=== PATIENT | male | born 1970 | race African-American/Black ===

== ENCOUNTER 2017-03-02 14:21 | Inpatient (IN) | payer OTHER ==
--- NOTE | 2017-03-02 15:02 | RAD ---
PORTABLE AP CHEST RADIOGRAPH: Date: 03-02-17 History: Tension pneumothorax post Mediport placement. Comparison: 02-21-16 FINDINGS: There has been interval placement of a CT injectable right internal jugular vein Mediport catheter wi th tip overlying the distal SVC. There is a moderate sized right apical pneumothorax with accentuatio n of the bronchovascular markings at the right lung base. There are pulmonary nodules seen bilaterall y, one overlying the right hilar region and second overlying the left midlung zone. There is a large opacity in the collapsed portion of the right midlung zone with probable pulmonary nodule at the lowe r right lung base. Cardiac silhouette and pulmonary vasculature are within normal limits. There is no other interval michele nge. IMPRESSION: 1. Moderately large right sided pneumothorax. 2. Bilateral pulmonary nodules suggesting metastatic disease. 3. Above findings discussed with ER physician at 03-02-17 at 1441 hours. POS: MAYA
[2017-03-02] MEDS ORDERED: Midazolam HCl 2 mg/2 ml Vial ONE (15:20)
[2017-03-02] MEDS ORDERED: Lidocaine 1% (PF) 30 ML VIAL ONE (15:20)
[2017-03-02 15:28] LABS: ALT (SGPT) 14 U/L (8-55); AST (SGOT) 19 U/L (5-34); Albumin 3.8 g/dL (3.5-5.0); Alkaline Phosphatase 69 U/L (40-150); Anion Gap 15 mmol/L (10-20); BUN (Urea Nitrogen) 7 mg/dL (8.9-20.6); Bilirubin, Total 0.2 mg/dL (0.2-1.2); Calc. Creatinine Clearance 0 mL/min (70-130); Carbon Dioxide 19 mmol/L (22-29); Chloride 99 mmol/L (98-107); Estimated GFR-MDRD Greater than 90; Glucose 91 mg/dL (70-105); Potassium 3.8 mmol/L (3.5-5.1); Protein, Total 6.8 g/dL (6.0-8.3); Sodium 129 mmol/L (136-145)
[2017-03-02 15:33] LABS: Band 30 % (5-11); Blast 1 % (0-0); Hemoglobin 7.4 g/dL (14.0-18.0); Hypochromia SLIGHT = 6-15 cells (100X) (0-5/hpf); Lymphocytes 22 % (21-51); MDiff Complete? YES; Mean Corpuscular HGB CONC 32.1 g/dL (32.0-36.0); Mean Corpuscular Hemoglobin 24.9 pg (27.0-31.0); Mean Corpuscular Volume 77.6 fl (80.0-94.0); Mean Platelet Volume 8.1 fL (7.4-10.4); Metamyelocyte 8 % (0-0); Microcytosis SLIGHT = 6-15 cells (100X) (0-5/hpf); Monocytes 16 % (0-10); Neutrophil 20 % (42-75); PLT Morphology Comment Appears Adequate; Platelet Count 149 thou/uL (130-400); RBC Distribution Width 12.1 % (11.5-14.5); Reactive Lymphocytes 1 % (0-10); Red Blood Cell (RBC) Count 2.97 mill/uL (4.70-6.10); Reflex for Review?? YES; Toxic Granulation MODERATE; Vacuoles SLIGHT
--- NOTE | 2017-03-02 16:25 | CON ---
DATE OF CONSULTATION: 03/02/2017 REQUESTING PHYSICIAN: Emergency room provider. CHIEF COMPLAINT: Short of breath and right-sided chest pain. HISTORY OF PRESENT ILLNESS: The patient is a 46-year-old man who has undergone left lower extremity amputation for sarcoma and about a week ago had a Port-A-Cath implanted via the right subclavian vein at another institution. He developed shortness of breath and pleuritic chest and back pain and on p resentation, an x-ray demonstrated large right-sided pneumothorax. The patient denies any antecedent cough or trauma other than his Port-A-Cath about a week ago. PAST MEDICAL HISTORY: Only significant for his sarcoma. MEDICATIONS: The patient does not know the names of his medications. ALLERGIES: He denies any medical allergies. REVIEW OF SYSTEMS: Positive for headache. PHYSICAL EXAMINATION: GENERAL: He is mildly agitated. VITAL SIGNS: Heart rate is in 70s, systolic blood pressure is in the 120s to 130s, nasal cannula oxy gen saturations were in the low 90s. NECK: He has no JVD, no tracheal shift. LUNGS: Absent breath sounds on the right side and some hyperresonance. CARDIOVASCULAR: He has a regular rate and rhythm. ABDOMEN: Soft and nontender. EXTREMITIES: Status post left lower extremity amputation. His chest x-ray shows a large right-sided pneumothorax. LABORATORY DATA: His hemoglobin 7.4, white count 4.0, platelet count 149,000. Sodium is 129, potass ium 3.8, BUN 15, creatinine 0.84. IMPRESSION AND PLAN: Large right-sided pneumothorax. We will place a right-sided chest tube.
--- NOTE | 2017-03-02 16:34 | RAD ---
PORTABLE AP CHEST: Date: 03/02/17 HISTORY: Tension pneumothorax. Placement of right-sided thoracostomy tube. COMPARISON: 03/02/17 at 1432 hours. FINDINGS: There has been interval placement of a right-sided thoracostomy tube with resolution of the right-rosibel ed pneumothorax. The right internal jugular vein MediPort catheter remains in place and unchanged in position. There are nodular densities again overlying the right hilar region and at the left lung bas e. Pulmonary nodules over the mid lung zones bilaterally likely related to metastatic disease. Atelec tasis is present at the medial left lung base. Linear densities are seen within the right upper lung zone, probably related to atelectasis. IMPRESSION: 1. Interval placement of right-sided thoracostomy tube with resolution of pneumothorax. There is ate lectasis present at the lateral aspect of the right upper lung zone. 2. Bilateral pulmonary nodules suggesting metastatic disease. POS: [facility]
--- NOTE | 2017-03-02 16:48 | OP ---
DATE OF PROCEDURE: 03/02/2017 PROCEDURES PERFORMED: A 28-Singaporean right tube thoracostomy. PREOPERATIVE DIAGNOSIS: Right pneumothorax. POSTOPERATIVE DIAGNOSIS: Right pneumothorax SURGEON: Berto Paris M.D. ANESTHESIA: 1% lidocaine local anesthesia with intravenous sedation consisting of a total of 2 mg of Versed and 10 mg of morphine. INDICATIONS: The patient is a 46-year-old man who had a right-sided Port-A-Cath placed about a week ago at another institution when he presented today with shortness of breath and pleuritic pain. He w as found to have a right-sided pneumothorax. A chest tube is now being placed to expand his lung. FINDINGS: Small air neal heard upon entering the chest, good reexpansion of the lung following chest tube insertion. NARRATIVE REPORT: After informed consent was obtained, the patient was sedated incrementally with a total of 2 mg of Versed and 10 mg of morphine. His right chest was prepped and draped in sterile fas hion. Then, 1% lidocaine was used to infiltrate the skin and subcutaneous tissues little lateral to the nipple line at the level of the xiphoid. The skin was sharply incised at that point and subcutan eous tract was developed superiorly and posteriorly. Additional lidocaine was infiltrated into the s ubcutaneous tissue and over superior rib margin aspirating on the syringes. The needle was advanced until the air was aspirated from the chest. A bolus of lidocaine was infiltrated just extrapleurally . Blunt dissection was used to enter the pleural space and a 28-Singaporean chest tube was then inserted. It was secured to the skin with suture and connected to close suction drainage. Post-procedure [facility] x-ray showed good positioning of the tube in good reexpansion of the lung.
[2017-03-02 17:24] VITALS: BMI 23.0
[2017-03-02] MEDS ORDERED: HYDROcodone/Acetaminophen 5/325 mg Tablet PO PRN (17:30)
[2017-03-02] MEDS: HYDROcodone/Acetaminophen 5/325 mg Tablet PO PRN (20:14)
[2017-03-02] MEDS ORDERED: metFORMIN 500 MG TAB PO SCH (20:45)
[2017-03-02] MEDS ORDERED: Melatonin 3 MG TAB PO PRN (22:23)
[2017-03-02] MEDS: Perphenazine 2 MG TAB PO SCH (22:48)
[2017-03-02 23:06] LABS: Reticulocyte Count 0.7 % (0.5-1.5)
[2017-03-02 23:37] LABS: Iron 9 ug/dL (65-175); Iron Binding Capacity, Total 188 mcg/dL (261-462)
--- NOTE | 2017-03-03 00:27 | CON-2 ---
CODE STATUS: FULL. PRIMARY CARE PHYSICIAN: Vee Aguillon M.D. ATTENDING: Stone Lau M.D. RESIDENT: Flaco Alicia M.D. HISTORIAN: Patient. SPECIALIST: Berto Paris MD, Cardiovascular Surgery. CHIEF COMPLAINT: Shortness of breath, cough. CONSULTATION REQUEST: Medical management. HISTORY OF PRESENT ILLNESS: A 46-year-old -Welsh male with past medical history of metastatic sarcoma and a recent MediPort placement who presented to the [facility] clinic today for shortness of breath and cough. Patient felt shortness of breath that started 4-5 days ago, but was not completely sure. He endorsed cough and subsequent chest pain related to that, as well as runny nose and congestion felt to have started at the same time of the MediPort placement last week. X-ray performed which showed a right large apical pneumothorax, so the patient was sent to the Emergency Department and subsequently admitted to Dr. Paris of Cardiovascular Surgery. Right side chest tube was placed with resolution of pneumothorax and improvement in SOB. [facility] [place] [place] residents have been consulted for medical management. Patient is an overall poor historian due to psychiatric issues. 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 Initially treated at [facility], but currently being managed by Dr. Roberson, an oncologist at [facility] in [place]. Records available to me through clinic EMR documentation show a recent lung biopsy in 01/2017 that confirmed metastatic disease. Patient's prognosis is poor unless systemic treatment recurs. Chemotherapy options include AIM versus Adriamycin/olaratumab. The patient's psychosocial and logistical issues make him a poor candidate as unable to travel consistently from [place] to [place]. He also appears to lack an overall understanding of his disease process. The patient's [facility] social media developer, Jose G Head, is currently attempting to make arrangements for him to receive chemotherapy, but no recent updates are available. He received a MediPort last week and saw his oncologist at that time with no records available. Patient does not remember what his oncologist said about the current plan for treatment at that visit. EMERGENCY ROOM COURSE: Received morphine 10 mg, Versed 2 mg, DuoNeb treatment and right-sided chest tube. PAST MEDICAL HISTORY: 1. 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 2. Hypertension. 3. Schizoaffective disorder. 4. Mild mental retardation. 5. Diabetes mellitus 2. 6. Insomnia. PAST MEDICAL HISTORY: Left leg amputation with hip disarticulation in 12/2016. ALLERGIES: Per chart review, GABAPENTIN has been suggested as an allergy. Patient states no current allergies. MEDICATIONS: 1. Lexapro 20 mg q.a.m. 2. Perphenazine 16 mg q.a.m., 32 mg at bedtime. 3. Seroquel 300 mg 2 tabs at bedtime. 4. Simvastatin 20 mg at bedtime. 5. Hydrochlorothiazide 25 mg daily. 6. Ferrous gluconate 324 mg every day. 7. Metformin 500 mg b.i.d. 8. Lisinopril 10 mg every day. 9. Aspirin 81 mg. 10. Clonazepam 2 mg b.i.d. 11. Melatonin 5 mg at bedtime. 12. Vitamin D 50,000 units every week. FAMILY HISTORY: Denies any medical issues in parents and siblings. SOCIAL HISTORY: Patient has smoked 3-4 cigarettes per day since 2012. He denies any alcohol use. Endorses distant history of drug use in his teenage years. No history of IV drug use. Patient has no current occupation. He is not . He has 1 daughter. He currently lives with his sister. Denies any ill contacts. REVIEW OF SYSTEMS: A 12-step review of systems including general, eyes, ENT, respiratory, CV, GI, , skin, musculoskeletal, neuro, and psychiatric are negative except for pertinent positives in HPI. PHYSICAL EXAMINATION: VITAL SIGNS: BP 133/79, pulse 100, respiratory rate 18, T-max 99.5, pulse ox 95 % on room air. Current weight 77 kilograms. GENERAL: Alert, oriented x4. NAD, thin and appropriately interactive. EYES: PERRLA, EOMI. Conjunctivae WNL. ENT: Nasal mucosa WNL. Oropharynx WNL. NECK: Supple. No lymphadenopathy. CARDIOVASCULAR: Regular rate and rhythm. No murmur, no gallops. RESPIRATORY: Normal effort, no retractions. Mild left-sided expiratory wheezing. Good breath sounds bilaterally. Right-sided chest tube in place. SKIN: Warm and dry, no cyanosis, no lesions. Left leg amputation at hip. ABDOMEN: Soft, nontender to palpation. Bowel sounds x4. No mass or distention. EXTREMITIES: No cyanosis, no edema. MUSCULOSKELETAL: Structure WNL. Tone WNL. Full range of motion. NEUROLOGIC: No focal deficits. Sensation WNL. Cranial nerves II through XII intact. PSYCHIATRIC: Appropriate, although appears to lack insight. LABORATORY DATA: CBC: WBC 4.0, hemoglobin 7.4, hematocrit 23.1, platelets 149 , MCV 77.6, bands 30%, neutrophils 20%, blasts 1%, metamyelocyte 8%. CMP: Sodium 129, potassium 3.8, chloride 99, CO2 19, BUN 7, creatinine 0.84, glucose 91, calcium 9.0, total protein 6.8, albumin 3.8, total bilirubin 0.2, AST 19, ALT 14, alkaline phosphatase 69. IMAGING: Chest x-ray showed right apical pneumothorax and bilateral pulmonary nodules in the mid lung zone suggesting metastatic disease. Repeat film showed interval insertion of right-sided chest tube with complete expansion of the right lung. ASSESSMENT AND PLAN: A 46-year-old -Welsh male with history of metastatic sarcoma and MediPort placement, presented with: 1. Right apical pneumothorax. Likely 2/2 last week's Mediport placement. Chest tube inserted by primary team with resolution of pneumothorax. Shortness of breath also improved. Further management by Dr. Paris. [facility] was consulted for management of other medical problems. 2. Bicytopenia. Patient has stage 4 sarcoma and not currently receiving any treatment. It is unclear if these findings are related to bone marrow involvement. We will check iron studies, reticulocyte count, peripheral smear and repeat CBC in a.m. Hemoglobin is close to transfusion threshold. Mild neutropenia with ANC of 2000. Findings may also be related to perphenazine. Last anemia with Hgb 4.9 came following bleeding tumor that resulted in L leg amputation. Records reviewed from [facility] oncologist that had CBC from Dec showing mild anemia and no neutropenia. Takes iron daily. 3. Stage IV pleomorphic spindle cell sarcoma. Patient has known metastatic disease to the lungs as evidenced on biopsy in 01/2017. A MediPort was placed last week via an oncologist in [place]. See H&P for more information. Currently , awaiting the start of treatment. We will attempt to fax information from this hospitalization to the patient's oncologist for further review due to new findings of severe anemia and leukopenia. There has also been mention of possible palliative radiation, although this does not seem to have been discussed in detail with the patient. 4. Hyponatremia. This is chronic per chart review. It is currently improved from his usual baseline. We will continue to monitor. 5. Schizoaffective disorder. [facility] records reviewed from clinic EMR. Home meds have been restarted appropriately. Will not hold perphenazine at this time although monitor for worsening neutropenia. D/c if ANC < 1000. Will need to get info to [facility] pertaining to newly found bicytopenia in case dosage adjustments warranted. 6. Hypertension. We will continue home medications. Currently appears controlled. 7. Diabetes mellitus type 2. Continue home medications. We will check Accu- Cheks. 8. Prophylaxis. Sequential compression devices. DISPOSITION AND LENGTH OF HOSPITAL STAY: Admission with an anticipated 1-2 day stay expected. Symptomatic medications will be provided. History and physical exam as well as management were discussed with Dr. Lau. We appreciate the opportunity to assist in the care of this mutual patient. LINDA
[2017-03-03] MEDS: HYDROcodone/Acetaminophen 5/325 mg Tablet PO PRN ×3 (02:27→18:06)
[2017-03-03] MEDS: Ibuprofen 600 MG TAB PO PRN (03:50)
[2017-03-03 06:09] LABS: Band 52 % (5-11); Hemoglobin 7.3 g/dL (14.0-18.0); Lymphocytes 8 % (21-51); MDiff Complete? YES; Mean Corpuscular HGB CONC 32.8 g/dL (32.0-36.0); Mean Corpuscular Hemoglobin 25.5 pg (27.0-31.0); Mean Corpuscular Volume 77.9 fl (80.0-94.0); Mean Platelet Volume 8.1 fL (7.4-10.4); Metamyelocyte 5 % (0-0); Monocytes 18 % (0-10); Myelocyte 2 % (0-0); Neutrophil 15 % (42-75); Platelet Count 136 thou/uL (130-400); RBC Distribution Width 12.3 % (11.5-14.5); Red Blood Cell (RBC) Count 2.86 mill/uL (4.70-6.10); Toxic Granulation SLIGHT; White Blood Cell (WBC) Count 6.5 thou/uL (4.8-10.8)
--- NOTE | 2017-03-03 07:50 | RAD ---
AP CHEST: History: Shortness of breath. Date: 03-03-17 Comparison: 03-02-17 FINDINGS: AP chest demonstrates a right jugular triple lumen catheter in place, distal tip overlying the SVC ri ght atrial junction. A right sided chest tube is in place. Areas of atelectasis is present in the rig ht lung. There is a well circumscribed mass in the left upper lobe. Additional right lower lobe and right central nodules are more difficult to see but remain. No evidence of pleural effusions seen. IMPRESSION: 1. No evidence of right sided pneumothorax post chest tube placement. 2. Bilateral lung parenchymal opacities compatible with metastatic disease. POS: H
--- NOTE | 2017-03-03 08:01 | RAD ---
PORTABLE UPRIGHT FRONTAL CHEST RADIOGRAPH: Date: 03/03/17 Time: 0708 hours COMPARISON: 03/03/17 at 0231 hours. HISTORY: Shortness of breath, chest tube in place. FINDINGS: There is a right-sided Port-A-Cath, distal tip overlying the region of the right atrium. There is a c hest tube overlying the right lung base. There are patchy areas of increased density in the mid right lung zone and medial right lung base which may signify air space disease or volume loss. There is a round mass density in the mid left lung zone measuring 2.1 cm. Possible perihilar nodule i s noted on the right as well. IMPRESSION: 1. Right chest tube in place. No discrete right-sided pneumothorax. 2. Bilateral pulmonary nodules suggest possible underlying metastatic disease. CODE T. POS: [facility]
[2017-03-03] MEDS: Ferrous Gluconate 324 MG TAB PO SCH (08:59)
[2017-03-03] MEDS: metFORMIN 500 MG TAB PO SCH ×2 (08:59→18:05)
[2017-03-03] MEDS ORDERED: Perphenazine 2 MG TAB PO SCH ×2 (09:00→22:00)
[2017-03-03] MEDS: clonazePAM 1 MG TAB PO SCH ×2 (09:00→21:19)
[2017-03-03] MEDS: Escitalopram Oxalate 20 mg Tablet PO SCH (09:00)
[2017-03-03] MEDS: Hydrochlorothiazide 25 MG TAB PO SCH (09:00)
[2017-03-03] MEDS ORDERED: Nicotine 21 MG PATCH TD SCH (09:00)
[2017-03-03] MEDS: Aspirin 81 mg Enteric Coated Tablet PO SCH (09:00)
[2017-03-03] MEDS: Lisinopril 10 MG TAB PO SCH (09:00)
--- NOTE | 2017-03-03 09:31 | PDOC.FM ---
- Subjective Subjective: Patient did well overnight. No N/V, SOB. Cough has improved, chest pain still present when he does cough. - Objective MAR Reviewed: Yes Vital Signs & Weight: Vital Signs (12 hours) Temp Pulse Resp BP BP Pulse Ox 03/03/17 09:00 104/65 03/03/17 07:35 98.3 F 88 20 104/65 94 L 03/03/17 02:24 99.3 F 102 H 20 121/68 94 L 03/03/17 00:51 100.2 F H 105 H 18 100/61 94 L Weight Weight 77 kg I&O: 03/02/17 03/03/17 03/04/17 06:59 06:59 06:59 Intake Total 400 Output Total 600 Balance -200 Result Diagrams: 03/03/17 04:47 03/02/17 14:46 <Fritz High - Last Filed: 03/03/17 14:07> - Objective Vital Signs & Weight: Vital Signs (12 hours) Temp Pulse Resp BP BP Pulse Ox 03/04/17 09:11 98.9 F 99 24 H 97/57 L 93 L 03/04/17 08:49 97/57 L 03/04/17 08:00 98.9 F 99 24 H 93 L 03/04/17 05:23 98.7 F 107 H 16 94/52 L 91 L Weight Weight 77 kg I&O: 03/03/17 03/04/17 03/05/17 06:59 06:59 06:59 Intake Total 400 1700 240 Output Total 600 1650 60 Balance -200 50 180 Result Diagrams: 03/03/17 04:47 03/04/17 06:56 <Bibi Reinoso - Last Filed: 03/04/17 11:21> Phys Exam - Physical Examination Constitutional: NAD HEENT: PERRLA, moist MMs chest tube in place on right thorax Cardiovascular: RRR, no significant murmur Gastrointestinal: soft, non-tender Musculoskeletal: no edema left AKA Neurological: non-focal, normal sensation Psychiatric: normal affect, A&O x 3 <Fritz High - Last Filed: 03/03/17 14:07> Dx/Plan (1) Pneumothorax Code(s): J93.9 - PNEUMOTHORAX, UNSPECIFIED Status: Acute Plan: chest tube in place, managed by CV surg (2) Chest tube in place Code(s): Z97.8 - PRESENCE OF OTHER SPECIFIED DEVICES Status: Acute (3) Chronic hyponatremia Code(s): E87.1 - HYPO-OSMOLALITY AND HYPONATREMIA Status: Acute Plan: stable, continue to monitor (4) Spindle cell carcinoma Code(s): C80.1 - MALIGNANT (PRIMARY) NEOPLASM, UNSPECIFIED Status: Acute (5) HTN (hypertension) Code(s): I10 - ESSENTIAL (PRIMARY) HYPERTENSION Status: Acute Plan: continue home meds, monitor (6) DM2 (diabetes mellitus, type 2) Status: Acute Plan: continue home meds goal 140-180 (7) Schizoaffective disorder Code(s): F25.9 - SCHIZOAFFECTIVE DISORDER, UNSPECIFIED Status: Acute Plan: home meds have been reconciled - Plan Plan: stable at this time, will continue to follow <Fritz High - Last Filed: 03/03/17 14:07> Attending Addendum - Attending Addendum I personally evaluated the patient and discussed the management with Dr. High on 03/03/17. I agree with the History, Examination, Assessment and Plan documented above with any addition or exceptions noted below. The patient is doing well. Has chest tube in place. Will wean O2 as tolerated. <Bibi Reinoso - Last Filed: 03/04/17 11:21>
[2017-03-03] MEDS ORDERED: Atorvastatin Calcium 10 MG TAB PO SCH (21:00)
[2017-03-03] MEDS: Perphenazine 2 MG TAB PO SCH (23:26)
[2017-03-04] MEDS: HYDROcodone/Acetaminophen 5/325 mg Tablet PO PRN ×2 (04:31→09:02)
[2017-03-04 07:39] LABS: Anion Gap 13 mmol/L (10-20); BUN (Urea Nitrogen) 13 mg/dL (8.9-20.6); Calc. Creatinine Clearance 71 mL/min (70-130); Calcium 9.1 mg/dL (7.8-10.44); Carbon Dioxide 25 mmol/L (22-29); Chloride 96 mmol/L (98-107); Estimated GFR-MDRD 66; Glucose 106 mg/dL (70-105); Potassium 4.4 mmol/L (3.5-5.1); Sodium 130 mmol/L (136-145)
--- NOTE | 2017-03-04 08:15 | RAD ---
SINGLE VIEW OF THE CHEST: Comparison: None. History: Chest tube placement. FINDINGS: Single view of the chest shows a normal sized cardiomediastinal silhouette. There is a right sided ch est tube without evidence of pneumothorax. The Mediport is unchanged in position. Multiple bilateral pulmonary nodules are again seen. IMPRESSION: 1. Right sided chest tube without evidence of pneumothorax. 2. Bilateral pulmonary nodules. POS: OFF
--- NOTE | 2017-03-04 08:29 | PDOC.FM ---
- Subjective Subjective: Patient has no medical complaints overnight. Wants to know when he can go home because he has bills to pay and letters to write. No CP, SOB, N/V, pain with coughing. - Objective MAR Reviewed: Yes Vital Signs & Weight: Vital Signs (12 hours) Temp Pulse Resp BP Pulse Ox 03/04/17 05:23 98.7 F 107 H 16 94/52 L 91 L 03/03/17 20:57 100.1 F H 98 17 98/62 95 Weight Weight 77 kg I&O: 03/03/17 03/04/17 03/05/17 06:59 06:59 06:59 Intake Total 400 1700 240 Output Total 600 1650 60 Balance -200 50 180 Result Diagrams: 03/03/17 04:47 03/04/17 06:56 <Fritz High - Last Filed: 03/04/17 09:29> - Objective Vital Signs & Weight: Vital Signs (12 hours) Temp Pulse Resp BP BP Pulse Ox 03/04/17 09:11 98.9 F 99 24 H 97/57 L 93 L 03/04/17 08:49 97/57 L 03/04/17 08:00 98.9 F 99 24 H 93 L 03/04/17 05:23 98.7 F 107 H 16 94/52 L 91 L Weight Weight 77 kg I&O: 03/03/17 03/04/17 03/05/17 06:59 06:59 06:59 Intake Total 400 1700 240 Output Total 600 1650 60 Balance -200 50 180 Result Diagrams: 03/03/17 04:47 03/04/17 06:56 <Bibi Reinoso - Last Filed: 03/04/17 11:27> Phys Exam - Physical Examination Constitutional: NAD HEENT: PERRLA Neck: no JVD, full ROM Respiratory: no wheezing, clear to auscultation bilateral Cardiovascular: RRR, no significant murmur Gastrointestinal: soft, non-tender, positive bowel sounds Musculoskeletal: no edema, pulses present Neurological: non-focal, normal sensation Deviation from normal: mildly agitated <Fritz High - Last Filed: 03/04/17 09:29> Dx/Plan (1) Pneumothorax Code(s): J93.9 - PNEUMOTHORAX, UNSPECIFIED Status: Acute Plan: chest tube in place, improving managed by CV surg (2) Chest tube in place Code(s): Z97.8 - PRESENCE OF OTHER SPECIFIED DEVICES Status: Acute (3) Chronic hyponatremia Code(s): E87.1 - HYPO-OSMOLALITY AND HYPONATREMIA Status: Acute Plan: stable, continue to monitor (4) Spindle cell carcinoma Code(s): C80.1 - MALIGNANT (PRIMARY) NEOPLASM, UNSPECIFIED Status: Acute (5) HTN (hypertension) Code(s): I10 - ESSENTIAL (PRIMARY) HYPERTENSION Status: Acute Plan: will hold HCTZ this morning as BP has been low overnight (6) DM2 (diabetes mellitus, type 2) Status: Acute Plan: continue home meds goal 140-180 (7) Schizoaffective disorder Code(s): F25.9 - SCHIZOAFFECTIVE DISORDER, UNSPECIFIED Status: Acute Plan: home meds (8) BIRD (acute kidney injury) Code(s): N17.9 - ACUTE KIDNEY FAILURE, UNSPECIFIED Status: Acute Plan: bump in Cr overnight, will check FeUrea as he is on HCTZ and start fluids <Fritz High - Last Filed: 03/04/17 09:29> Attending Addendum - Attending Addendum I personally evaluated the patient and discussed the management with Dr. High. I agree with the History, Examination, Assessment and Plan documented above with any addition or exceptions noted below. Patient strongly wants to go home. Creatinine increased. Will give IV fluids and recheck creatinine. Chest tube has been pulled. CXR pending. <Bibi Reinoso - Last Filed: 03/04/17 11:27>
[2017-03-04] MEDS: metFORMIN 500 MG TAB PO SCH (08:48)
[2017-03-04] MEDS: Ferrous Gluconate 324 MG TAB PO SCH (08:48)
[2017-03-04] MEDS: Lisinopril 10 MG TAB PO SCH (08:49)
[2017-03-04] MEDS: clonazePAM 1 MG TAB PO SCH (08:50)
[2017-03-04] MEDS: Aspirin 81 mg Enteric Coated Tablet PO SCH (08:50)
[2017-03-04] MEDS: Escitalopram Oxalate 20 mg Tablet PO SCH (08:50)
[2017-03-04] MEDS: Hydrochlorothiazide 25 MG TAB PO SCH (08:57)
[2017-03-04] MEDS: Ibuprofen 600 MG TAB PO PRN (09:02)
[2017-03-04] MEDS ORDERED: Sodium Chloride 0.9% 1,000 ML IV SCH (11:15)
--- NOTE | 2017-03-04 13:15 | RAD ---
CHEST ONE VIEW: History: Chest tube removal. Comparison: 03-04-17 FINDINGS: Cardiomediastinal silhouette is magnified by projection. Pulmonary vasculature is upper limits of nor mal and accentuated by shallow inspiration. Right thoracostomy tube is no longer visible. No evidence of pneumothorax. Right internal jugular central venous catheter remains in place. Nodular densities projecting over each lung and patchy atelectasis at the right base are stable. IMPRESSION: Interval removal of the right chest tube. No evidence of recurrent pneumothorax. POS: [facility]
[2017-03-04 16:17] LABS: Anion Gap 13 mmol/L (10-20); BUN (Urea Nitrogen) 17 mg/dL (8.9-20.6); Calc. Creatinine Clearance 85 mL/min (70-130); Calcium 8.5 mg/dL (7.8-10.44); Carbon Dioxide 25 mmol/L (22-29); Chloride 97 mmol/L (98-107); Estimated GFR-MDRD 81; Glucose 96 mg/dL (70-105); Potassium 4.1 mmol/L (3.5-5.1); Sodium 131 mmol/L (136-145)
[2017-03-04 16:37] VITALS: BP 125/73; TEMP 98.2
[2017-03-04] MEDS ORDERED: Perphenazine 2 MG TAB PO SCH (21:00)
--- NOTE | 2017-03-05 14:57 | DIS ---
DATE OF ADMISSION: 03/02/2017 DATE OF DISCHARGE: 03/04/2017 PRINCIPAL DIAGNOSIS: Right pneumothorax. PROCEDURE PERFORMED: 28-Hebrew right tube thoracostomy, 03/02/2017. HISTORY OF PRESENT ILLNESS AND HOSPITAL COURSE: The patient is a 46-year-old man with metastatic edinson coma, who had had a Port-A-Cath placed via the right subclavian approach about a week earlier at an [facility] institution. He presented with shortness of breath and pleuritic pain and was found to have a large right-sided pneumothorax. His lungs were expanded well with a conventional chest tube and the following morning, his chest tube was placed to waterseal as there was no apparent ongoing air leak. The patient had some low-grade fevers that had no clear cut identifiable cause and resolved spontan eously. His chest tube was removed on the morning of the , and that afternoon, a repeat chest x- ray showed no obvious pneumothorax. As he had remained afebrile, he was discharged home when the Res idency Service was comfortable with his medical stability. Followup with me will be in around 2 week s with another chest x-ray.
== END 2017-03-04 17:40 | disposition home or self-care (01) | DRG 200 ==
LOC: ERS 14:21 → SURG B 15:50
PROVIDERS: ADMIT Thoracic Surgery (Cardiothoracic Vascular Surgery); ATTEND Thoracic Surgery (Cardiothoracic Vascular Surgery)
PROC: 0W9900Z Drainage of Right Pleural Cavity with Drainage Device, Open Approach (ICD-10-PCS; principal; 2017-03-02)
DX: J93.83 Other pneumothorax (principal); E87.1 Hypo-osmolality and hyponatremia; N17.9 Acute kidney failure, unspecified; C78.01 Secondary malignant neoplasm of right lung; F25.9 Schizoaffective disorder, unspecified; Z89.612 Acquired absence of left leg above knee; I10 Essential (primary) hypertension; F70 Mild intellectual disabilities; E11.9 Type 2 diabetes mellitus without complications; G47.00 Insomnia, unspecified; F17.210 Nicotine dependence, cigarettes, uncomplicated; C76.52 Malignant neoplasm of left lower limb
CPT/HCPCS: 36415; 71045; 80048; 80053; 82728; 83540; 83550; 85025; 85046; 85060; 94640; 96374; 96375; 99406; J2001; J2250; J7620; Q0175

== ENCOUNTER 2017-03-22 10:48 | Emergency (ER) | payer OTHER ==
[2017-03-22] MEDS ORDERED: Dexamethasone 4 mg/ml Vial ONE (11:39)
[2017-03-22] MEDS ORDERED: diphenhydrAMINE 25 MG CAP ONE (11:39)
[2017-03-22] MEDS ORDERED: Famotidine 20 MG TAB ONE (11:39)
== END 2017-03-22 11:48 | disposition home or self-care (01) ==
LOC: ERS 10:48
DX: T78.3XXA Angioneurotic edema, initial encounter (principal); I10 Essential (primary) hypertension; E11.9 Type 2 diabetes mellitus without complications; F31.9 Bipolar disorder, unspecified; F17.210 Nicotine dependence, cigarettes, uncomplicated; F20.9 Schizophrenia, unspecified; Z79.84 Long term (current) use of oral hypoglycemic drugs; Z79.899 Other long term (current) drug therapy
CPT/HCPCS: 99283; J1100

== ENCOUNTER 2017-04-01 17:24 | Emergency (ER) | payer OTHER ==
[2017-04-01] MEDS ORDERED: Magnesium Citrate 300 ML BOT ONE (19:39)
== END 2017-04-01 19:45 | disposition home or self-care (01) ==
LOC: ERS 17:24
DX: K59.00 Constipation, unspecified (principal); I10 Essential (primary) hypertension; E11.9 Type 2 diabetes mellitus without complications; F31.9 Bipolar disorder, unspecified; F20.9 Schizophrenia, unspecified; F17.210 Nicotine dependence, cigarettes, uncomplicated
CPT/HCPCS: 99283

== ENCOUNTER 2017-04-06 23:29 | Emergency (ER) | payer OTHER ==
[2017-04-07 01:36] LABS: Band 46 % (5-11); Eosinophils 1 % (0-10); Hemoglobin 6.7 g/dL (14.0-18.0); Lymphocytes 5 % (21-51); MDiff Complete? YES; Mean Corpuscular HGB CONC 31.9 g/dL (32.0-36.0); Mean Corpuscular Hemoglobin 25.5 pg (27.0-31.0); Mean Corpuscular Volume 79.9 fl (80.0-94.0); Mean Platelet Volume 8.8 fL (7.4-10.4); Metamyelocyte 5 % (0-0); Monocytes 2 % (0-10); Myelocyte 3 % (0-0); Neutrophil 38 % (42-75); PLT Morphology Comment Appears Adequate; Platelet Count 209 thou/uL (130-400); Red Blood Cell (RBC) Count 2.61 mill/uL (4.70-6.10); White Blood Cell (WBC) Count 31.5 thou/uL (4.8-10.8)
[2017-04-07 01:37] LABS: ALT (SGPT) 9 U/L (8-55); AST (SGOT) 15 U/L (5-34); Albumin 3.4 g/dL (3.5-5.0); Alkaline Phosphatase 120 U/L (40-150); Anion Gap 10 mmol/L (10-20); BUN (Urea Nitrogen) 8 mg/dL (8.9-20.6); Bilirubin, Total Less than 0.2 mg/dL (0.2-1.2); Calc. Creatinine Clearance 0 mL/min (70-130); Calcium 8.7 mg/dL (7.8-10.44); Carbon Dioxide 28 mmol/L (22-29); Chloride 100 mmol/L (98-107); Estimated GFR-MDRD Greater than 90; Globulin 2.9 g/dL (2.4-3.5); Glucose 102 mg/dL (70-105); Protein, Total 6.3 g/dL (6.0-8.3); Sodium 135 mmol/L (136-145)
[2017-04-07 01:39] LABS: Acetaminophen Less than 6.0 mcg/mL (10.0-30.0); Alcohol Less than 10 mg/dL (Less than 10); Salicylate Less than 8.0 mg/dL (15.0-30.0)
[2017-04-07 01:42] LABS: CKMB 2.9 ng/mL (0-6.6); Troponin I Less than 0.010 ng/mL (< 0.028)
[2017-04-07 02:13] LABS: Amphetamine Not Detected (NotDetected); Benzodiazepine Screen Not Detected (NotDetected); Cocaine Metabolite Screen Not Detected (NotDetected); Medtox Reader # READER 4; Methamphetamine Not Detected (NotDetected); Opiate Screen Not Detected (NotDetected); Phencyclidine (PCP) Not Detected (NotDetected); THC/Cannabinoid Screen Not Detected (NotDetected)
[2017-04-07 02:14] LABS: Barbiturates Screen Not Detected (NotDetected); Medtox Control Line Valid? VALID (VALID); Methadone Not Detected (NotDetected); Oxycodone Screen Not Detected (NotDetected); Tricyclic Screen Detected (NotDetected)
[2017-04-07] MEDS ORDERED: Potassium Chloride 20 MEQ TAB ONE (02:52)
--- NOTE | 2017-04-07 07:40 | RAD ---
AP VIEW CHEST: HISTORY: Chest pain. FINDINGS: AP view chest was obtained on 04/07/17. Comparison is made to previous exam from 03/04/17. AP view chest demonstrates a right subclavian central MediPort catheter in place. EKG leads seen ove r the chest. Multiple well-circumscribed soft tissue density seen throughout the lungs compatible wi th extensive metastatic disease. Radiograph is not significantly changed since the previous comparis on radiograph from 03/04/17. No evidence of effusions or pneumonia seen. IMPRESSION: 1. Multiple pulmonary parenchymal lesions. 2. Cardiomegaly. POS: [facility]
--- NOTE | 2017-04-07 08:11 | CT ---
PRELIMINARY REPORT/[facility]/EMERGENCY AFTER HOURS PROCEDURE: EXAM: CT Angiography Chest With Intravenous Contrast EXAM DATE/TIME: Exam ordered 04/07/2017 2:36 AM CLINICAL HISTORY: 46 years old, male; Pain; Chest pain; Patient HX: Er 4; 46 yo m presents to ed C/O substernal chest p ain and palpitations onset x30 minutes cryptanalyst while pt was lying in bed. Pt states that he took x2 seroq uel tonight before lying down then started experiencing pain and fast heart beat. TECHNIQUE: Axial computed tomographic angiography images of the chest with intravenous contrast using pulmonary embolism protocol. MIP reconstructed images were created and reviewed. Coronal reformatted images were created and reviewed. COMPARISON: No relevant prior studies available. FINDINGS: Pulmonary arteries: Suboptimal contrast bolus for evaluation of the pulmonary arteries. Allowing for this, there is no evidence of PE. Aorta: Thoracic aorta is normal. No thoracic aortic aneurysm. Lungs: Multiple bilateral pulmonary nodules measuring up to 2 cm in size, suspicious in appearance fo r metastases. No pneumonia or pulmonary edema Pleural space: Unremarkable. No significant effusion. No pneumothorax. Heart: Unremarkable. No cardiomegaly. No significant pericardial effusion. No evidence of RV dysfunct ion. Bones/joints: No acute fracture. No dislocation. Soft tissues: Gynecomastia. Lymph nodes: Unremarkable. No enlarged lymph nodes. IMPRESSION: Multiple bilateral pulmonary nodules measuring up to 2 cm in size, suspicious in appearance for metas tases. Atypical pulmonary infection can sometimes manifests as marked diffuse nodules but is less lik raghavendra, especially if the patient is immunocompetent. Thank you for allowing us to participate in the care of your patient. Dictated and Authenticated by: Philip Sosa MD 04/07/2017 3:19 AM Central Time ([place] & [place]) FINAL REPORT Preliminary exam was performed by [facility]. CTA CHEST: Contrast-enhanced CTA of the chest was performed. Two-D and 3D reconstruction images performed on an independent 3D work station. CTA chest images demonstrate multiple lung parenchymal nodules. No definite evidence of filling defe ct is seen in the pulmonary arteries to suggest pulmonary emboli. The contrast bolus is predominantl y in the aorta rather than in the pulmonary arteries significantly decreasing the sensitivity for det ection of pulmonary arterial pathology. If there is concern for pulmonary emboli, repeat CTA chest m ay be of use. I concur with the dictation from [facility]. POS: [facility]
[2017-04-07] MEDS ORDERED: ISOVUE-370 76%-LOCM 1 ML ONE (12:43)
--- NOTE | 2017-04-11 14:31 | EKG ---
Test Reason : CHEST PAIN Blood Pressure : / mmHG Vent. Rate : 111 BPM Atrial Rate : 111 BPM P-R Int : 178 ms QRS Dur : 112 ms QT Int : 354 ms P-R-T Axes : 048 068 042 degrees QTc Int : 481 ms Sinus tachycardia Otherwise normal ECG Confirmed by KENNEDY DUQUE, KEISHA ([id number]), tape editor LORI CARNES ([id number]) on 04/11/2017 2:30:42 PM Referred By: KATT BENAVIDES Confirmed By:KEISHA BENAVIDES MD
== END 2017-04-07 03:50 | disposition home or self-care (01) ==
LOC: ERS 23:29
DX: R07.89 Other chest pain (principal); I10 Essential (primary) hypertension; E11.9 Type 2 diabetes mellitus without complications; F31.9 Bipolar disorder, unspecified; F20.9 Schizophrenia, unspecified; F17.210 Nicotine dependence, cigarettes, uncomplicated; Z79.84 Long term (current) use of oral hypoglycemic drugs; Z71.6 Tobacco abuse counseling; Z79.899 Other long term (current) drug therapy
CPT/HCPCS: 36415; 71045; 71275; 80053; 80306; 80307; 82553; 84484; 85025; 85379; 93005; 96360; 99406

== ENCOUNTER 2017-04-08 16:36 | Emergency (ER) | payer OTHER ==
[2017-04-08 17:23] LABS: Hemoglobin 7.6 g/dL (14.0-18.0); Mean Corpuscular HGB CONC 32.3 g/dL (32.0-36.0); Mean Corpuscular Volume 77.4 fl (80.0-94.0); Mean Platelet Volume 7.4 fL (7.4-10.4); Platelet Count 304 thou/uL (130-400); RBC Distribution Width 15.1 % (11.5-14.5); Red Blood Cell (RBC) Count 3.03 mill/uL (4.70-6.10); White Blood Cell (WBC) Count 25.7 thou/uL (4.8-10.8)
[2017-04-08 17:49] LABS: ALT (SGPT) 9 U/L (8-55); AST (SGOT) 17 U/L (5-34); Alkaline Phosphatase 135 U/L (40-150); Anion Gap 14 mmol/L (10-20); BUN (Urea Nitrogen) 6 mg/dL (8.9-20.6); Bilirubin, Total 0.2 mg/dL (0.2-1.2); CK (CPK) 410 U/L (30-200); Calc. Creatinine Clearance 0 mL/min (70-130); Calcium 9.4 mg/dL (7.8-10.44); Carbon Dioxide 28 mmol/L (22-29); Chloride 94 mmol/L (98-107); Estimated GFR-MDRD Greater than 90; Globulin 3.2 g/dL (2.4-3.5); Glucose 116 mg/dL (70-105); Protein, Total 7.2 g/dL (6.0-8.3); Sodium 133 mmol/L (136-145)
[2017-04-08 17:54] LABS: CKMB 4.5 ng/mL (0-6.6); Troponin I Less than 0.010 ng/mL (< 0.028)
[2017-04-08 18:23] LABS: Anisocytosis SLIGHT = 6-15 cells (100X) (0-5/hpf); Band 7 % (5-11); Hypochromia SLIGHT = 6-15 cells (100X) (0-5/hpf); Lymphocytes 1 % (21-51); MDiff Complete? YES; Metamyelocyte 2 % (0-0); Monocytes 1 % (0-10); Myelocyte 2 % (0-0); Neutrophil 87 % (42-75); PLT Morphology Comment Appears Adequate; Polychromasia SLIGHT = 2-3 cells (100X) (0-2/hpf)
[2017-04-08] MEDS ORDERED: Ketorolac Tromethamine 30 MG/ML VIAL ONE (19:33)
[2017-04-08] MEDS ORDERED: Ondansetron ODT 4 MG TAB ONE (20:21)
--- NOTE | 2017-04-11 13:26 | EKG ---
Test Reason : Blood Pressure : / mmHG Vent. Rate : 102 BPM Atrial Rate : 102 BPM P-R Int : 176 ms QRS Dur : 108 ms QT Int : 378 ms P-R-T Axes : 032 033 039 degrees QTc Int : 492 ms Sinus tachycardia Possible Left atrial enlargement Borderline ECG No ST elevation/[place] Confirmed by RADHA DUQUE, RAYMOND ([id number]), magazine editor LORI CARNES ([id number]) on 04/11/2017 1:25:43 PM Referred By: Confirmed By:RAYMOND GARCIA MD
== END 2017-04-08 20:51 | disposition home or self-care (01) ==
LOC: ERS 16:36
DX: R07.89 Other chest pain (principal); I10 Essential (primary) hypertension; E78.00 Pure hypercholesterolemia, unspecified; F31.9 Bipolar disorder, unspecified; F20.9 Schizophrenia, unspecified; F17.210 Nicotine dependence, cigarettes, uncomplicated; E11.9 Type 2 diabetes mellitus without complications; Z79.899 Other long term (current) drug therapy; Z79.84 Long term (current) use of oral hypoglycemic drugs
CPT/HCPCS: 36415; 80053; 82550; 82553; 84484; 85025; 85060; 93005; 96361; 96374; 99406; J1885; Q0162

== ENCOUNTER 2017-04-10 14:32 | Emergency (ER) | payer OTHER ==
[2017-04-10] MEDS ORDERED: Dexamethasone 10 MG/ML VIAL ONE (15:54)
[2017-04-10] MEDS ORDERED: Ketorolac Tromethamine 30 MG/ML VIAL ONE (15:54)
[2017-04-10] MEDS ORDERED: Metoclopramide HCl 10 MG/2 ML VIAL ONE (15:54)
== END 2017-04-10 16:42 | disposition home or self-care (01) ==
LOC: ERS 14:32
DX: R51 Headache (principal); E11.9 Type 2 diabetes mellitus without complications; I10 Essential (primary) hypertension; F31.9 Bipolar disorder, unspecified; F17.210 Nicotine dependence, cigarettes, uncomplicated; Z79.84 Long term (current) use of oral hypoglycemic drugs; Z79.899 Other long term (current) drug therapy
CPT/HCPCS: 96365; 96375; J1100; J1885; J2765

== ENCOUNTER 2017-04-10 18:33 | Observation (INO) | payer OTHER ==
[2017-04-10 21:56] LABS: Mean Corpuscular HGB CONC 32.2 g/dL (32.0-36.0); Mean Corpuscular Hemoglobin 24.9 pg (27.0-31.0); Mean Corpuscular Volume 77.3 fl (80.0-94.0); Mean Platelet Volume 7.7 fL (7.4-10.4); Platelet Count 441 thou/uL (130-400); RBC Distribution Width 15.2 % (11.5-14.5); Red Blood Cell (RBC) Count 3.19 mill/uL (4.70-6.10); White Blood Cell (WBC) Count 14.6 thou/uL (4.8-10.8)
[2017-04-10 22:16] LABS: ALT (SGPT) 12 U/L (8-55); AST (SGOT) 15 U/L (5-34); Albumin 4.1 g/dL (3.5-5.0); Alkaline Phosphatase 121 U/L (40-150); Anion Gap 13 mmol/L (10-20); BUN (Urea Nitrogen) 11 mg/dL (8.9-20.6); Bilirubin, Total 0.2 mg/dL (0.2-1.2); Calc. Creatinine Clearance 0 mL/min (70-130); Calcium 9.6 mg/dL (7.8-10.44); Carbon Dioxide 27 mmol/L (22-29); Chloride 93 mmol/L (98-107); Estimated GFR-MDRD Greater than 90; Globulin 3.4 g/dL (2.4-3.5); Glucose 149 mg/dL (70-105); Potassium 3.5 mmol/L (3.5-5.1); Protein, Total 7.5 g/dL (6.0-8.3); Sodium 129 mmol/L (136-145)
[2017-04-10 22:27] LABS: Troponin I Less than 0.010 ng/mL (< 0.028)
[2017-04-10 22:28] LABS: Band 6 % (5-11); Lymphocytes 7 % (21-51); MDiff Complete? YES; Monocytes 2 % (0-10); Myelocyte 1 % (0-0); Neutrophil 84 % (42-75)
[2017-04-10] MEDS ORDERED: Acetaminophen 500 MG TAB ONE (22:36)
--- NOTE | 2017-04-10 22:39 | RAD ---
PORTABLE AP CHEST X-RAY 04/10/17 HISTORY: Patient with dizziness, weakness and sweating. COMPARISON: 04/07/17 FINDINGS: A right internal jugular vein Mediport catheter remains in place. There are bilateral pulmonary nodul es which are unchanged when compared to the prior exam. No new discrete pulmonary nodule is visualize d on this exam. Cardiac silhouette and pulmonary vasculature are within normal limits. No other inter odell change from the prior exam. IMPRESSION: 1. Multiple bilateral pulmonary nodules likely attributable to metastatic disease. Pulmonary nod ules are unchanged in number or size when compared to the prior exam. 2. No acute cardiopulmonary process. POS: [facility]
[2017-04-11 00:03] LABS: Bilirubin Negative (Negative); Blood, Urine Negative (Negative); Clarity CLOUDY (Clear); Glucose, Urine (Dipstick) Negative (Negative); Leukocyte Negative (Negative); Nitrite Negative (Negative); Protein, Urine (Dipstick) Negative (Neg-Trace); Specific Gravity, Urine 1.015 (1.002-1.036); pH, Urine 6.5 (5.0-9.0)
[2017-04-11] MEDS ORDERED: Ondansetron ODT 4 MG TAB SL PRN (01:03)
[2017-04-11] MEDS ORDERED: Ondansetron HCl/PF 4 MG/2 ML Vial IVP PRN ×2 (01:03→02:02)
[2017-04-11] MEDS ORDERED: Acetaminophen 325 MG TAB PO PRN ×2 (01:03→02:02)
[2017-04-11] MEDS ORDERED: Sodium Chloride 0.9% 1,000 ML IV SCH ×2 (01:15→02:15)
[2017-04-11 01:17] VITALS: BMI 22.1
[2017-04-11] MEDS ORDERED: Senokot 8.6 MG TAB PO PRN (02:02)
[2017-04-11] MEDS ORDERED: Dextrose 5% in Water 1,000 ML IV PRN (02:02)
[2017-04-11] MEDS ORDERED: Milk Of Magnesia 30 ML UDCUP PO PRN (02:02)
[2017-04-11] MEDS ORDERED: HYDROcodone/Acetaminophen 10/325 mg Tablet PO PRN (02:02)
[2017-04-11] MEDS ORDERED: HumaLOG 300 UNITS/3 ML VIAL SC PRN ×2 (02:02)
[2017-04-11] MEDS ORDERED: Mag-Al 1200 mg/1200 mg/30 ML UDCUP PO PRN (02:02)
[2017-04-11] MEDS ORDERED: Ondansetron ODT 4 MG TAB PO PRN (02:02)
[2017-04-11] MEDS ORDERED: Zolpidem Tartrate 5 MG TAB PO PRN (02:02)
[2017-04-11] MEDS ORDERED: Dextrose 50% Abboject 50 ML SYRINGE SLOW IVP PRN (02:02)
[2017-04-11] MEDS ORDERED: cefTRIAXone\\ROCEPHIN 1 GM in Sodium Chloride 0.9% 100 ML IVPB SCH ×2 (02:15→04:00)
--- NOTE | 2017-04-11 02:59 | HP ---
PRIMARY CARE PHYSICIAN: [facility]. DATE OF SERVICE: 04/10/2017 REASON FOR ADMISSION: Hyponatremia, weakness. HISTORY OF PRESENT ILLNESS: A 46-year-old -[place]ong[place] male who has underlying history of sarcoma with metastasis, who came to emergency room because he was feeling dizzy, weak, lightheaded. He was having dyspnea on exertion. He was feeling fatigued, tired. He was getting very easily out of breath. He denies any black stool. He denies any hematochezia. He denies any vomiting of blood. He denies any fever or chills, but he does report cough productive of white sputum. He does report lightheadedness. He did not have any complete syncope. Today in emergency room, his hemoglobin is 8.0 and he has microcytosis with leukocytosis with left shift. He also found with hyponatremia. He denies any UTI symptoms. He denies any hemoptysis. In the emergency room, chest x-ray showed multiple nodules consistent with metastatic disease. At this point, we are admitting this patient in hospital for 1 unit of blood transfusion and IV fluid for hydration. ALLERGIES: No known drug allergy. CURRENT HOME MEDICATIONS: Aspirin 81 mg p.o. daily, clonazepam 2 mg p.o. b.i.d. , Lexapro 20 mg p.o. daily, ferrous gluconate 324 mg p.o. daily, hydrochlorothiazide 25 mg p.o. daily, iron one tablet p.o. daily, lisinopril 10 mg p.o. daily, melatonin 5 mg p.o. at bedtime, metformin 500 mg twice daily, Trileptal 150 mg p.o. b.i.d., perphenazine 32 mg p.o. at bedtime and 16 mg daily , Seroquel 600 mg p.o. at bedtime, Zocor 20 mg p.o. at bedtime, Restoril 15 mg p.o. at bedtime. 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 PAST PSYCHIATRIC HISTORY: Schizoaffective disorder, insomnia, mild mental retardation. PAST SURGICAL HISTORY: Left leg amputation with hip disarticulation in 12/2016. FAMILY HISTORY: No strong family history of premature coronary artery disease, stroke, or cancer. SOCIAL HISTORY: Patient has history of smoking about 3-4 cigarettes per day since 2013. He denies any alcohol abuse. He has a remote history of drug abuse when he was teenage. No history of IV drug abuse. He is not employed. He is not . He currently lives with his sister. REVIEW OF SYSTEMS: Please see my HPI for pertinent for positive and negative, all other review of systems reviewed and negative except as mentioned in the HPI : Constitutional: Weight loss or gain, ability to conduct usual activities. Skin: Rash, itching. Eyes: Double vision, pain. ENT/Mouth: Nose bleeding, neck stiffness, pain, tenderness. Cardiovascular: Palpitations, dyspnea on exertion, orthopnea. Respiratory: Shortness of breath, wheezing, cough, hemoptysis, fever, or night sweats. Gastrointestinal: Poor appetite, abdominal pain, heartburn, nausea, vomiting, constipation, or diarrhea. Genitourinary: Urgency, frequency, dysuria, nocturia. Musculoskeletal: Pain, swelling. Neurologic/Psychiatric: Anxiety, depression. Allergy/Immunologic: Skin rash, bleeding tendency. PHYSICAL EXAMINATION: VITAL SIGNS: On arrival, blood pressure 131/79, pulse 95, respiratory rate 24, temperature 98.3, saturation 98% on room air, weight 74.8 kilograms. GENERAL: Patient is currently alert, awake, appears in no obvious acute distress. Appears weak. HEAD: Normocephalic, atraumatic. EYES: Conjunctivae pale. Pupils round, reactive to light. Extraocular muscle intact. ENT: Pale mucous membrane, no oral lesion, no pharyngeal erythema, no exudate. NECK: Supple, no JVD, no thyromegaly, no carotid bruit, no jugular venous distension, no meningeal signs of irritation. LUNGS: Clear to auscultation without any rhonchi or rales. CARDIAC: S1, S2 regular. No obvious murmur noted, no gallop, no rub. ABDOMEN: Obesity present. Bowel sounds present, nontender, nondistended. No organomegaly, no mass, no suprapubic tenderness. BACK: Unremarkable, no CVA tenderness. EXTREMITIES: Upper extremity passive movement of all joints are normal. Lower extremity, left leg amputation. Right lower extremity within normal limits. NEUROLOGIC: Nonfocal examination. Patient is moving all four limbs. Speech normal. SKIN: No skin rash. HEMATOLOGIC: No lymphadenopathy. PSYCHIATRIC: Normal affect. SIGNIFICANT LABORATORY DATA: EKG showing normal sinus rhythm within normal limits. CBC: WBC 14.6, hemoglobin 8.0, platelet 441 with bandemia. BMP: Sodium 129, potassium 3.5, chloride 93, carbon dioxide 27, anion gap 11, BUN 0.83, glucose 149, calcium 9.6. LFT: AST 15, ALT 12, alkaline phosphatase is 121, albumin 4.1. TSH 1.00, CK-MB was 4.0, troponin I 0.10. Urinalysis normal. ASSESSMENT AND PLAN: 1. Symptomatic iron deficiency anemia. Check iron study and give 1 unit of blood transfusion for symptomatic anemia. 2. Leukocytosis with bandemia. We will repeat CBC tomorrow, may be related with that underlying tumor. I am not finding any obvious source of infection. 3 . Hyponatremia may be related with syndrome of inappropriate antidiuretic hormone secretion versus hydrochlorothiazide. Patient will be given IV fluid with NS at 75 mL per hour and will repeat BMP tomorrow. 4. Metastatic stage 4 spindle cell sarcoma. Patient has metastasis to lung. Given his bandemia and underlying suspicious for infection, we will start empirically levofloxacin 500 mg IV daily. 5. Diabetes, type 2. We will continue metformin 500 mg twice daily. Diabetic diet and insulin as per sliding scale per protocol. 6. Anxiety and depression. Resume his home medication. 7. Dyslipidemia. Continue Zocor 20 mg p.o. at bedtime. Anxiety, depression, schizoaffective disorder after verification of his home medication, we will continue all his home medication while in hospital. 8. Deep venous thrombosis prophylaxis not needed, because we are expecting discharge in 24 hours. Gastrointestinal prophylaxis, Pepcid 20 mg IV b.i.d. CODE STATUS: Patient is FULL CODE. Patient does not have any surrogate decision maker. Disposition plan based on clinical course. We are expecting patient's stay in hospital more than 2 midnights. Plan of care discussed with the patient in detail. MTDD
[2017-04-11] MEDS ORDERED: cefTRIAXone\\ROCEPHIN 1 GM in Syringe 10 ML IVPB SCH (04:00)
[2017-04-11] MEDS ORDERED: Ferrous Gluconate 324 MG TAB PO SCH (08:00)
[2017-04-11] MEDS ORDERED: metFORMIN 500 MG TAB PO SCH (08:00)
[2017-04-11 08:53] VITALS: TEMP 98.7
[2017-04-11] MEDS ORDERED: Escitalopram Oxalate 20 mg Tablet PO SCH (09:00)
[2017-04-11] MEDS ORDERED: Prevnar 13-Val Conj/PF 0.5 ML SYRINGE IM ONE (09:00)
[2017-04-11] MEDS ORDERED: Lisinopril 10 MG TAB PO SCH (09:00)
[2017-04-11] MEDS ORDERED: FLU VACC QS2017-18 36 mo. & older 0.5 ML SYRINGE IM ONE (09:00)
[2017-04-11] MEDS ORDERED: Famotidine 20 MG TAB PO SCH (09:00)
[2017-04-11] MEDS ORDERED: clonazePAM 1 MG TAB PO SCH (09:00)
[2017-04-11] MEDS ORDERED: OXcarbazepine 150 MG TAB PO SCH (09:00)
[2017-04-11] MEDS ORDERED: Perphenazine 2 MG TAB PO SCH ×2 (10:00→21:00)
[2017-04-11 10:20] LABS: #Lymphocytes 1.2 thou/uL (1.20-3.40); #Monocytes 1.4 thou/uL (0.11-0.59); #Neutrophils 7.7 thou/uL (1.40-6.50); %Basophils 0.3 % (0.0-1.0); %Eosinophils 0.5 % (0.0-10.0); %Lymphocytes 11.2 % (21.0-51.0); %Monocytes 13.8 % (0.0-10.0); %Neutrophils 74.2 % (42.0-75.0); Hemoglobin 8.5 g/dL (14.0-18.0); Mean Corpuscular HGB CONC 32.8 g/dL (32.0-36.0); Mean Corpuscular Hemoglobin 25.7 pg (27.0-31.0); Mean Corpuscular Volume 78.3 fl (80.0-94.0); Mean Platelet Volume 7.4 fL (7.4-10.4); Platelet Count 424 thou/uL (130-400); RBC Distribution Width 15.4 % (11.5-14.5); Red Blood Cell (RBC) Count 3.31 mill/uL (4.70-6.10); White Blood Cell (WBC) Count 10.3 thou/uL (4.8-10.8)
[2017-04-11 10:28] LABS: Anion Gap 9 mmol/L (10-20); BUN (Urea Nitrogen) 6 mg/dL (8.9-20.6); Calc. Creatinine Clearance 128 mL/min (70-130); Calcium 9.4 mg/dL (7.8-10.44); Carbon Dioxide 28 mmol/L (22-29); Chloride 99 mmol/L (98-107); Estimated GFR-MDRD Greater than 90; Glucose 114 mg/dL (70-105); Magnesium 1.9 mg/dL (1.6-2.6); Potassium 3.2 mmol/L (3.5-5.1); Sodium 133 mmol/L (136-145)
[2017-04-11 11:19] VITALS: BP 115/78
--- NOTE | 2017-04-11 15:38 | EKG ---
Test Reason : Blood Pressure : / mmHG Vent. Rate : 079 BPM Atrial Rate : 079 BPM P-R Int : 194 ms QRS Dur : 106 ms QT Int : 400 ms P-R-T Axes : 048 060 056 degrees QTc Int : 458 ms Normal sinus rhythm Normal ECG Confirmed by LEO DUQUE, MARAL Roach ([id number]), editor book LORI CARNES ([id number]) on 04/11/2017 3:38:23 PM Referred By: Confirmed By:MARAL BAILEY MD
--- NOTE | 2017-04-11 15:38 | EKG ---
Test Reason : Blood Pressure : / mmHG Vent. Rate : 084 BPM Atrial Rate : 084 BPM P-R Int : 194 ms QRS Dur : 106 ms QT Int : 394 ms P-R-T Axes : 043 056 049 degrees QTc Int : 465 ms Normal sinus rhythm Normal ECG Confirmed by LEO DUQUE, MARAL Roach ([id number]), editor newspaper LORI CARNES ([id number]) on 04/11/2017 3:37:53 PM Referred By: Confirmed By:MARAL BAILEY MD
[2017-04-11] MEDS ORDERED: Melatonin 3 MG TAB PO SCH (21:00)
[2017-04-11] MEDS ORDERED: Atorvastatin Calcium 10 MG TAB PO SCH (21:00)
[2017-04-12] MEDS ORDERED: Perphenazine 2 MG TAB PO SCH (07:30)
== END 2017-04-11 12:47 | disposition home or self-care (01) ==
LOC: ERS 18:33 → 2NO 22:30
PROVIDERS: ADMIT Internal Medicine; ATTEND Internal Medicine
DX: D50.9 Iron deficiency anemia, unspecified (principal); D72.825 Bandemia; E87.1 Hypo-osmolality and hyponatremia; C49.9 Malignant neoplasm of connective and soft tissue, unspecified; C78.01 Secondary malignant neoplasm of right lung; D63.0 Anemia in neoplastic disease; E11.9 Type 2 diabetes mellitus without complications; I10 Essential (primary) hypertension; G47.00 Insomnia, unspecified; F25.9 Schizoaffective disorder, unspecified; F70 Mild intellectual disabilities; F17.210 Nicotine dependence, cigarettes, uncomplicated; F19.11 Other psychoactive substance abuse, in remission; E78.5 Hyperlipidemia, unspecified; F41.8 Other specified anxiety disorders; Z79.82 Long term (current) use of aspirin; Z79.84 Long term (current) use of oral hypoglycemic drugs; Z79.899 Other long term (current) drug therapy; Z95.828 Presence of other vascular implants and grafts; Z89.612 Acquired absence of left leg above knee
CPT/HCPCS: 36415; 36416; 36430; 71045; 80048; 80053; 81003; 82553; 83735; 84443; 84484; 85025; 85046; 86850; 86900; 86901; 90471; 90670; 93005; 96360; 96365; 96375; 99406; G0009; G0378; J0696; J1100; J1885; J1956; J2765; J7050; P9016; Q0175

== ENCOUNTER 2017-04-12 15:01 | Emergency (ER) | payer OTHER ==
[2017-04-12 15:40] LABS: #Basophils 0.1 thou/uL (0.0-0.2); #Eosinphils 0.1 thou/uL (0.0-0.7); #Lymphocytes 1.3 thou/uL (1.20-3.40); #Monocytes 1.4 thou/uL (0.11-0.59); %Basophils 0.6 % (0.0-1.0); %Eosinophils 0.7 % (0.0-10.0); %Lymphocytes 11.6 % (21.0-51.0); %Monocytes 12.5 % (0.0-10.0); %Neutrophils 74.5 % (42.0-75.0); Hemoglobin 8.5 g/dL (14.0-18.0); Mean Corpuscular Hemoglobin 25.9 pg (27.0-31.0); Mean Corpuscular Volume 78.4 fl (80.0-94.0); Mean Platelet Volume 7.4 fL (7.4-10.4); Platelet Count 457 thou/uL (130-400); RBC Distribution Width 15.5 % (11.5-14.5); Red Blood Cell (RBC) Count 3.29 mill/uL (4.70-6.10); White Blood Cell (WBC) Count 10.8 thou/uL (4.8-10.8)
[2017-04-12 16:21] LABS: ALT (SGPT) 11 U/L (8-55); AST (SGOT) 14 U/L (5-34); Albumin 3.8 g/dL (3.5-5.0); Alkaline Phosphatase 93 U/L (40-150); Anion Gap 14 mmol/L (10-20); BUN (Urea Nitrogen) 10 mg/dL (8.9-20.6); Bilirubin, Total Less than 0.2 mg/dL (0.2-1.2); Calc. Creatinine Clearance 0 mL/min (70-130); Calcium 9.3 mg/dL (7.8-10.44); Carbon Dioxide 23 mmol/L (22-29); Chloride 98 mmol/L (98-107); Estimated GFR-MDRD Greater than 90; Glucose 109 mg/dL (70-105); Potassium 3.3 mmol/L (3.5-5.1); Protein, Total 6.8 g/dL (6.0-8.3); Sodium 132 mmol/L (136-145)
[2017-04-12 16:22] LABS: Bilirubin Negative (Negative); Blood, Urine Negative (Negative); Clarity CLEAR (Clear); Glucose, Urine (Dipstick) Negative (Negative); Leukocyte Negative (Negative); Nitrite Negative (Negative); Protein, Urine (Dipstick) Negative (Neg-Trace); Specific Gravity, Urine 1.006 (1.002-1.036); Urobilinogen 0.2 mg/dL (0.2-1.0)
--- NOTE | 2017-04-18 19:02 | EKG ---
Test Reason : Blood Pressure : / mmHG Vent. Rate : 074 BPM Atrial Rate : 074 BPM P-R Int : 192 ms QRS Dur : 106 ms QT Int : 384 ms P-R-T Axes : 056 063 059 degrees QTc Int : 426 ms Normal sinus rhythm Normal ECG Confirmed by CATARINO DUQUE, MANFRED ([id number]), production editor MARTHA ECHEVERRIA ([id number]) on 04/18/2017 7:02:16 PM Referred By: Confirmed By:MANFRED TORIBIO MD
== END 2017-04-12 18:32 | disposition home or self-care (01) ==
LOC: ERS 15:01
DX: C40.22 Malignant neoplasm of long bones of left lower limb (principal); C79.9 Secondary malignant neoplasm of unspecified site; I10 Essential (primary) hypertension; E11.9 Type 2 diabetes mellitus without complications; E78.00 Pure hypercholesterolemia, unspecified; F17.210 Nicotine dependence, cigarettes, uncomplicated; F31.9 Bipolar disorder, unspecified; F20.9 Schizophrenia, unspecified; Z79.82 Long term (current) use of aspirin; Z79.899 Other long term (current) drug therapy; Z79.84 Long term (current) use of oral hypoglycemic drugs
CPT/HCPCS: 36415; 80053; 81003; 85025; 85046; 86850; 86900; 86901; 93005; 99406

== ENCOUNTER 2017-05-30 00:21 | Emergency (ER) | payer OTHER ==
[2017-05-30] MEDS ORDERED: Ketorolac Tromethamine 30 MG/ML VIAL ONE (01:03)
[2017-05-30] MEDS ORDERED: HYDROcodone/Acetaminophen 5/325 mg Tablet ONE (01:03)
[2017-05-30 01:43] LABS: Bilirubin Negative (Negative); Blood, Urine Negative (Negative); Clarity CLEAR (Clear); Glucose, Urine (Dipstick) Negative (Negative); Leukocyte Negative (Negative); Nitrite Negative (Negative); Protein, Urine (Dipstick) Negative (Neg-Trace); Specific Gravity, Urine 1.005 (1.002-1.036); Urobilinogen 0.2 mg/dL (0.2-1.0)
== END 2017-05-30 01:37 | disposition home or self-care (01) ==
LOC: ERS 00:21
DX: R10.31 Right lower quadrant pain (principal); R10.32 Left lower quadrant pain; I10 Essential (primary) hypertension; E11.9 Type 2 diabetes mellitus without complications; E03.9 Hypothyroidism, unspecified; F31.9 Bipolar disorder, unspecified; F20.9 Schizophrenia, unspecified; F17.210 Nicotine dependence, cigarettes, uncomplicated; Z79.899 Other long term (current) drug therapy; Z79.84 Long term (current) use of oral hypoglycemic drugs; Z79.82 Long term (current) use of aspirin
CPT/HCPCS: 81003; 93005; 96372; J1885

== ENCOUNTER 2017-08-17 10:36 | Emergency (ER) | payer OTHER ==
[2017-08-17 11:15] LABS: Hemoglobin 8.2 g/dL (14.0-18.0); Mean Corpuscular HGB CONC 32.1 g/dL (32.0-36.0); Mean Corpuscular Hemoglobin 26.3 pg (27.0-31.0); Mean Corpuscular Volume 81.9 fL (78.0-98.0); Mean Platelet Volume 9.4 fL (7.4-10.4); Platelet Count 249 thou/uL (130-400); RBC Distribution Width 18.3 % (11.5-14.5); White Blood Cell (WBC) Count 25.1 thou/uL (4.8-10.8)
[2017-08-17 11:36] LABS: Acetaminophen Less than 6.0 mcg/mL (10.0-30.0); Alcohol Less than 10 mg/dL (Less than 10); Salicylate Less than 8.0 mg/dL (15.0-30.0)
[2017-08-17 11:38] LABS: ALT (SGPT) 17 U/L (8-55); AST (SGOT) 27 U/L (5-34); Albumin 4.2 g/dL (3.5-5.0); Alkaline Phosphatase 172 U/L (40-150); Anion Gap 13 mmol/L (10-20); BUN (Urea Nitrogen) 5 mg/dL (8.9-20.6); Bilirubin, Total 0.2 mg/dL (0.2-1.2); Calc. Creatinine Clearance 0 mL/min (70-130); Calcium 9.6 mg/dL (7.8-10.44); Carbon Dioxide 24 mmol/L (22-29); Chloride 99 mmol/L (98-107); Estimated GFR-MDRD Greater than 90; Globulin 2.9 g/dL (2.4-3.5); Glucose 114 mg/dL (70-105); Potassium 3.4 mmol/L (3.5-5.1); Protein, Total 7.1 g/dL (6.0-8.3); Sodium 133 mmol/L (136-145)
[2017-08-17 11:44] LABS: Band 42 % (5-11); Lymphocytes 7 % (21-51); MDiff Complete? YES; Metamyelocyte 6 % (0-0); Monocytes 10 % (0-10); Myelocyte 3 % (0-0); Neutrophil 32 % (42-75); Nucleated RBC 3 % (0); PLT Morphology Comment Appears Adequate; Polychromasia MODERATE = 3-4 cells (100X) (0-2/hpf); Reflex for Review?? YES; Toxic Granulation MODERATE; Vacuoles SLIGHT
[2017-08-17 12:55] LABS: Bilirubin Negative (Negative); Blood, Urine Negative (Negative); Clarity CLEAR (Clear); Glucose, Urine (Dipstick) Negative (Negative); Leukocyte Negative (Negative); Nitrite Negative (Negative); Protein, Urine (Dipstick) Negative (Neg-Trace); Specific Gravity, Urine 1.009 (1.002-1.036); pH, Urine 6.5 (5.0-9.0)
[2017-08-17 13:04] LABS: Amphetamine Not Detected (NotDetected); Barbiturates Screen Not Detected (NotDetected); Benzodiazepine Screen Not Detected (NotDetected); Cocaine Metabolite Screen Not Detected (NotDetected); Medtox Control Line Valid? VALID (VALID); Medtox Reader # READER 1; Methadone Not Detected (NotDetected); Methamphetamine Not Detected (NotDetected); Opiate Screen Not Detected (NotDetected); Oxycodone Screen Not Detected (NotDetected); Phencyclidine (PCP) Not Detected (NotDetected); THC/Cannabinoid Screen Not Detected (NotDetected); Tricyclic Screen Not Detected (NotDetected)
[2017-08-17] MEDS ORDERED: Ibuprofen 200 MG TAB ONE (13:38)
== END 2017-08-17 14:02 | disposition home or self-care (01) ==
LOC: ERS 10:36
DX: D72.829 Elevated white blood cell count, unspecified (principal); F20.9 Schizophrenia, unspecified; I10 Essential (primary) hypertension; E11.9 Type 2 diabetes mellitus without complications; E78.00 Pure hypercholesterolemia, unspecified; F31.9 Bipolar disorder, unspecified; F17.210 Nicotine dependence, cigarettes, uncomplicated; Z79.899 Other long term (current) drug therapy; Z79.82 Long term (current) use of aspirin
CPT/HCPCS: 36415; 51701; 51798; 80053; 80306; 80307; 81003; 84443; 85025; 85060

== ENCOUNTER 2017-08-19 00:04 | Inpatient (IN) | payer OTHER ==
[2017-08-19 00:49] LABS: ALT (SGPT) 22 U/L (8-55); AST (SGOT) 48 U/L (5-34); Acetaminophen Less than 6.0 mcg/mL (10.0-30.0); Albumin 4.3 g/dL (3.5-5.0); Alcohol Less than 10 mg/dL (Less than 10); Alkaline Phosphatase 163 U/L (40-150); Anion Gap 12 mmol/L (10-20); BUN (Urea Nitrogen) 4 mg/dL (8.9-20.6); Bilirubin, Total 0.3 mg/dL (0.2-1.2); CK (CPK) 1131 U/L (30-200); Calc. Creatinine Clearance 0 mL/min (70-130); Calcium 9.9 mg/dL (7.8-10.44); Carbon Dioxide 27 mmol/L (22-29); Chloride 103 mmol/L (98-107); Estimated GFR-MDRD Greater than 90; Globulin 2.8 g/dL (2.4-3.5); Glucose 101 mg/dL (70-105); Potassium 3.3 mmol/L (3.5-5.1); Protein, Total 7.1 g/dL (6.0-8.3); Salicylate Less than 8.0 mg/dL (15.0-30.0); Sodium 139 mmol/L (136-145)
[2017-08-19 00:58] LABS: Band 31 % (5-11); Hemoglobin 9.2 g/dL (14.0-18.0); Lymphocytes 8 % (21-51); MDiff Complete? YES; Mean Corpuscular HGB CONC 32.7 g/dL (32.0-36.0); Mean Corpuscular Hemoglobin 26.6 pg (27.0-31.0); Mean Corpuscular Volume 81.5 fL (78.0-98.0); Mean Platelet Volume 9.1 fL (7.4-10.4); Monocytes 8 % (0-10); Myelocyte 2 % (0-0); Neutrophil 51 % (42-75); Nucleated RBC 1 % (0); Platelet Count 231 thou/uL (130-400); RBC Distribution Width 18.9 % (11.5-14.5); Red Blood Cell (RBC) Count 3.44 mill/uL (4.70-6.10); White Blood Cell (WBC) Count 18.6 thou/uL (4.8-10.8)
[2017-08-19 03:46] LABS: Bilirubin Negative (Negative); Blood, Urine Negative (Negative); Clarity CLEAR (Clear); Glucose, Urine (Dipstick) Negative (Negative); Leukocyte Negative (Negative); Nitrite Negative (Negative); Protein, Urine (Dipstick) Negative (Neg-Trace); Specific Gravity, Urine 1.017 (1.002-1.036); Urobilinogen 0.2 mg/dL (0.2-1.0)
[2017-08-19 03:58] LABS: Amphetamine Not Detected (NotDetected); Barbiturates Screen Not Detected (NotDetected); Benzodiazepine Screen Not Detected (NotDetected); Cocaine Metabolite Screen Not Detected (NotDetected); Medtox Control Line Valid? VALID (VALID); Medtox Reader # READER 4; Methadone Not Detected (NotDetected); Methamphetamine Not Detected (NotDetected); Opiate Screen Not Detected (NotDetected); Oxycodone Screen Not Detected (NotDetected); Phencyclidine (PCP) Not Detected (NotDetected); THC/Cannabinoid Screen Not Detected (NotDetected); Tricyclic Screen Not Detected (NotDetected)
[2017-08-19] MEDS ORDERED: Haloperidol Lactate 5 MG/ML VIAL ONE (05:31)
[2017-08-19] MEDS ORDERED: Pot Chloride/Pot Bicarb/Cit Ac 25 mEq Effervescent Tablet ONE (07:17)
[2017-08-19] MEDS ORDERED: Lisinopril 10 MG TAB PO SCH (11:15)
[2017-08-19] MEDS ORDERED: metFORMIN 500 MG TAB PO SCH (11:15)
[2017-08-19] MEDS ORDERED: Atorvastatin Calcium 10 MG TAB PO SCH (11:15)
[2017-08-19] MEDS ORDERED: buPROPion 75 MG TAB PO SCH (11:15)
[2017-08-19] MEDS ORDERED: Bupropion 150 MG SR TAB PO SCH (20:30)
[2017-08-20] MEDS ORDERED: hydrOXYzine 25 MG TAB ONE (00:14)
[2017-08-20] MEDS ORDERED: Water For Injection,Sterile 20 ML ONE (04:01)
[2017-08-20] MEDS ORDERED: Ziprasidone 20 MG VIAL ONE (04:01)
[2017-08-20] MEDS ORDERED: Lorazepam 2 MG/ML VIAL ONE (06:35)
[2017-08-20] MEDS ORDERED: Lisinopril 10 MG TAB ONE ×2 (09:16→10:32)
[2017-08-20] MEDS ORDERED: metFORMIN 500 MG TAB PO SCH ×2 (09:30→23:15)
[2017-08-20] MEDS ORDERED: Atorvastatin Calcium 10 MG TAB PO SCH (09:30)
[2017-08-20] MEDS ORDERED: buPROPion 75 MG TAB PO SCH (09:30)
[2017-08-20] MEDS ORDERED: Ferrous Sulfate 325 MG TAB PO SCH (16:00)
[2017-08-20] MEDS ORDERED: Bupropion 150 MG SR TAB PO SCH (23:15)
[2017-08-21] MEDS ORDERED: Water For Injection,Sterile 20 ML ONE (00:21)
[2017-08-21] MEDS ORDERED: Ziprasidone 20 MG VIAL ONE (00:21)
[2017-08-21] MEDS ORDERED: Sodium Chloride 0.9% 1,000 ML IV SCH ×2 (03:49→06:15)
--- NOTE | 2017-08-21 05:05 | PDOC.FM ---
- Objective MAR Reviewed: Yes Vital Signs & Weight: Vital Signs (12 hours) Temp Pulse Resp BP Pulse Ox 08/21/17 03:45 98.6 F 93 18 136/77 97 Result Diagrams: 08/19/17 00:21 08/19/17 00:21
--- NOTE | 2017-08-21 05:30 | PDOC.FPRHP ---
- History of Present Illness Chief Complaint: Feels like someone is going to kill him History of Present Illness: 46 yo M with PMH schizophrenia, osteosarcoma, HTN, HLD, DM presents with chief complaint that "nephew is trying to kill me." Pt very paranoid that his sister and brother who live with him want him as well. He was admitted two days prior for similar symptoms and acute psychosis and was going to be placed at [facility], but placement requires CK to be < 1000. Upon ED arrival, his CK was 1075. Vitals were stable. WBC 18.6 with 31% bands, Hgb 9.2, K 3.3. He was given 8 L of fluid. Then CK was 1302. Per the ED note he received haldol, seroquel, hydroxyzine, geodon, and ativan. - Allergies/Adverse Reactions Allergies Allergy/AdvReac Type Severity Reaction Status Date / Time No Known Drug Allergies Allergy Verified 08/21/17 08:28 gabapentin AdvReac Unknown Verified 08/21/17 08:28 - Home Medications Medication Instructions Recorded Confirmed Type Asenapine Maleate [Saphris] 10 mg SL QPM 08/21/17 08/21/17 History Aspirin [Aspir-Low] 81 mg PO DAILY 08/21/17 08/21/17 History BuPROPion SR [Wellbutrin SR] 150 mg PO BID 08/21/17 08/21/17 History HYDROcodone/Acetaminophen [[place] 1 tablet PO Q4HR 08/21/17 08/21/17 History 10-325 Tablet] Lisinopril 10 mg PO DAILY 08/21/17 08/21/17 History Polyethylene Glycol 3350 [Miralax] 17 gm PO DAILY PRN 08/21/17 08/21/17 History SUMAtriptan Succinate [Imitrex] 50 mg PO Q2HR PRN MDD 200 mg/24 hrs 08/21/17 History Simvastatin 20 mg PO QPM 08/21/17 08/21/17 History metFORMIN HCl [Metformin HCl] 1 tablet PO DAILY 08/21/17 08/21/17 History Comments: Per [facility] from July,: wellbutrin SR 150 mg PO BID Imitrex 50 mg 1 tab PO, repeat in 2 hrs PRN, do not exceed 200 mg/24 hrs Miralax: 1 packet twice daily PRN for constipation Saphris 10 mg sublingual 1 tab qhs [place] 10-325 mg 1 tablet q4 for pain Aspirin 31 mg daily metformin 500 mg 1 tab PO daily lisinopril 10 mg PO once daily Simvastatin 20 mg PO every evening - History PMHx: schizophrenia, osteosarcoma PSHx: Rt subclavian port, amputation L leg, shoulder surgery FHx:unknown Social: Smokes cigarettes, trying to quit, can't quantify the amount. Denies alcohol or drug use, but per [facility] chart has hx of occasional alcohl use and a hx of drug abuse. - Review of Systems ROS unobtainable: due to mental status (ROS snell positive. Unreliable historian. Keeps talking about how "they are gonna come kill me") - Vital signs BP: [139] HR: [79] RR: [16] Tmax: [98.5] Pox: [100]% on [RA] Wt: [] - Physical Exam Constitutional: other (Agitated, Paranoid, highly excitable, very suggestive when asked about symptoms.) HEENT: normocephalic and atraumatic, PERRLA, EOMI, no scleral icterus, MMM, oropharynx clear Neck: supple, no LAD Heart: RRR, normal S1/S2, no murmurs/rubs/gallops, pulses present, no edema Lungs: CTAB, no respiratory distress, good air movement, no rales/rhonchi, no wheezing Abdomen: soft, non-tender, bowel sounds present, no masses/distention Musculoskeletal: normal tone FMR H&P: Results - Labs Result Diagrams: 08/21/17 07:12 08/21/17 07:12 Lab results: WBC 18.6 thou/uL (4.8-10.8) H 08/19/17 00:21 Hgb 9.2 g/dL (14.0-18.0) L 08/19/17 00:21 Hct 28.0 % (42.0-52.0) L 08/19/17 00:21 MCV 81.5 fL (78.0-98.0) 08/19/17 00:21 Plt Count 231 thou/uL (130-400) 08/19/17 00:21 Band Neuts % (Manual) 31 % (5-11) H 08/19/17 00:21 Sodium 139 mmol/L (136-145) 08/19/17 00:21 Potassium 3.3 mmol/L (3.5-5.1) L 08/19/17 00:21 Chloride 103 mmol/L (98-107) 08/19/17 00:21 Carbon Dioxide 27 mmol/L (22-29) 08/19/17 00:21 BUN 4 mg/dL (8.9-20.6) L 08/19/17 00:21 Creatinine 0.90 mg/dL (0.6-1.3) 08/19/17 00:21 Glucose 101 mg/dL (70-105) 08/19/17 00:21 Calcium 9.9 mg/dL (7.8-10.44) 08/19/17 00:21 Total Bilirubin 0.3 mg/dL (0.2-1.2) 08/19/17 00:21 AST 48 U/L (5-34) H 08/19/17 00:21 ALT 22 U/L (8-55) 08/19/17 00:21 Alkaline Phosphatase 163 U/L (40-150) H 08/19/17 00:21 Creatine Kinase 1302 U/L (30-200) H 08/21/17 00:53 Serum Total Protein 7.1 g/dL (6.0-8.3) 08/19/17 00:21 Albumin 4.3 g/dL (3.5-5.0) 08/19/17 00:21 Urine Ketones Trace mg/dL (Negative) H 08/19/17 03:30 Urine Blood Negative (Negative) 08/19/17 03:30 Urine Nitrite Negative (Negative) 08/19/17 03:30 Ur Leukocyte Esterase Negative (Negative) 08/19/17 03:30 FMR H&P: A/P - Problem List (1) Acute psychosis Current Visit: Yes Status: Acute Code(s): F23 - BRIEF PSYCHOTIC DISORDER (2) Elevated CK Current Visit: Yes Status: Acute (3) Leukocytosis Current Visit: Yes Status: Acute Code(s): D72.829 - ELEVATED WHITE BLOOD CELL COUNT, UNSPECIFIED (4) Anemia Current Visit: Yes Status: Chronic Code(s): D64.9 - ANEMIA, UNSPECIFIED (5) Hypokalemia Current Visit: Yes Status: Acute Code(s): E87.6 - HYPOKALEMIA (6) Osteosarcoma Current Visit: Yes Status: Chronic Code(s): C41.9 - MALIGNANT NEOPLASM OF BONE AND ARTICULAR CARTILAGE, UNSP (7) HLD (hyperlipidemia) Current Visit: Yes Status: Chronic Code(s): E78.5 - HYPERLIPIDEMIA, UNSPECIFIED (8) HTN (hypertension) Current Visit: No Status: Chronic Code(s): I10 - ESSENTIAL (PRIMARY) HYPERTENSION - Plan 46 yo schizophrenic M here for Acute Psychosis and elevated CK #1. Acute Psychosis -History of schizophrenia. Plan to transfer to [facility] once CK is <1000. -Sitter in the Room. #2. 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 Leukocytosis -trend WBC. 4. Anemia -supplement with Fe 5. Hypokalemia -Oral K 40 meq 1 x dose 6. Osteosarcoma -See if can get records from [place] where he gets chemotherapy -Per pt [facility] chart: Sees Dr. Saldana? 7. HTN -continue lisinopril -monitor BPs 8. HLD -Hold home statin, since this can be a cause of increased CK FMR H&P: Upper Level - Pertinent history 46 yr old male with h/o schizoaffective d/o presented to ER 2 days ago with c/o auditory hallucinations. He thought his whole family was trying to kill him. He locked himself in his room for 3 days without eating or drinking. He has been in the ER holding for [facility] for 48 hours but has been unable to get his CK down. He is being treated for osteosarcoma currently, last chemo treatment last month. He denies muscle pain. - Pertinent findings Gen: NAD, flight of speech, constant movement Cardiac: RRR, no M/R/G Lungs: CTAB no wheeze, rhales, rhonchi Abd: BS normal active, non tender EXT: no edema in RLE, LLE hip amputation Psych: affect congruent with mood, paranoid - Plan Date/Time: 08/21/17525 I, [Linda Salomon], have evaluated this patient and agree with findings/plan as outlined by agronomy internship resident. Pertinent changes/additions are listed here. 46 yr old male with schizophrenia acute psychosis -cont home Elevated CK -unknown cause but may be secondary to viral myositis, medications, vs malignancy -TSH wnl -trend -when below 1000, consult [facility] schizophrenia -cont home antipsychotic -no SI/HI DM II -cont home metformin -cont ACHS accucheck HLD -hold statin osteosarcoma cont outpatient treatment iron deficiency anemia -repeat iron studies -cont iron -needs outpatient colonoscopy Attending Addendum - Attending Addendum Date/Time: 08/21/171948 I personally evaluated the patient and discussed the management with Dr. Krueger I agree with the History, Examination, Assessment and Plan documented above with any addition or exceptions noted below. Patient acutely agitated and psychotic with paranoid ideation. Patient with elevated CK not improved with high fluid volume challenge. elevated CK felt related to multiple factors i.e. statin use and osteosarcoma s/p left hip dis- articulation ,patient recently found with metastatic disease and to follow up in [place]. Unfortunately patient advocate ocular care technician "Jose G" from [facility] not available. Feel patient is medically stable for transfer to mental health evaluation.
[2017-08-21] MEDS ORDERED: Dextrose 50% Abboject 50 ML SYRINGE SLOW IVP PRN (06:56)
[2017-08-21] MEDS ORDERED: Dextrose 5% in Water 1,000 ML IV PRN (06:56)
[2017-08-21 07:32] LABS: #Eosinphils 0.1 thou/uL (0.0-0.7); #Lymphocytes 1.4 thou/uL (1.20-3.40); #Monocytes 1.3 thou/uL (0.11-0.59); #Neutrophils 12.6 thou/uL (1.40-6.50); %Basophils 0.2 % (0.0-1.0); %Eosinophils 0.5 % (0.0-10.0); %Monocytes 8.2 % (0.0-10.0); %Neutrophils 82.1 % (42.0-75.0); Hemoglobin 8.1 g/dL (14.0-18.0); Mean Corpuscular HGB CONC 32.5 g/dL (32.0-36.0); Mean Corpuscular Hemoglobin 26.8 pg (27.0-31.0); Mean Corpuscular Volume 82.4 fL (78.0-98.0); Mean Platelet Volume 9.9 fL (7.4-10.4); Platelet Count 169 thou/uL (130-400); Red Blood Cell (RBC) Count 3.02 mill/uL (4.70-6.10); White Blood Cell (WBC) Count 15.3 thou/uL (4.8-10.8)
[2017-08-21 07:39] LABS: ALT (SGPT) 39 U/L (8-55); AST (SGOT) 61 U/L (5-34); Albumin 3.8 g/dL (3.5-5.0); Alkaline Phosphatase 122 U/L (40-150); Anion Gap 11 mmol/L (10-20); BUN (Urea Nitrogen) 4 mg/dL (8.9-20.6); Bilirubin, Total 0.3 mg/dL (0.2-1.2); CK (CPK) 1407 U/L (30-200); Calc. Creatinine Clearance 0 mL/min (70-130); Calcium 9.1 mg/dL (7.8-10.44); Carbon Dioxide 27 mmol/L (22-29); Chloride 105 mmol/L (98-107); Estimated GFR-MDRD Greater than 90; Globulin 2.5 g/dL (2.4-3.5); Glucose 84 mg/dL (70-105); Potassium 3.9 mmol/L (3.5-5.1); Protein, Total 6.3 g/dL (6.0-8.3); Sodium 139 mmol/L (136-145)
[2017-08-21] MEDS ORDERED: Polyethylene Glycol 3350 17 GM Packet PO PRN (08:06)
[2017-08-21] MEDS ORDERED: SUMAtriptan Succinate 50 MG TAB PO PRN (08:06)
[2017-08-21] MEDS ORDERED: Potassium Chloride 20 MEQ TAB PO SCH (08:30)
[2017-08-21] MEDS ORDERED: metFORMIN 500 MG TAB PO SCH (09:00)
[2017-08-21] MEDS: Lisinopril 10 MG TAB PO SCH (09:52)
[2017-08-21] MEDS: Enoxaparin Sodium 40 MG/0.4 ML SYRINGE SC SCH (09:53)
[2017-08-21] MEDS: Aspirin 81 mg Enteric Coated Tablet PO SCH (09:53)
[2017-08-21] MEDS: Bupropion 150 MG SR TAB PO SCH ×2 (09:54→20:11)
[2017-08-21] MEDS: Lactated Ringer's 1,000 ML IV SCH (09:57)
[2017-08-21] MEDS ORDERED: HYDROcodone/Acetaminophen 5/325 mg Tablet PO PRN (11:39)
[2017-08-21] MEDS ORDERED: Haloperidol 5 MG TAB PO SCH (12:15)
[2017-08-21] MEDS ORDERED: Bismuth Subs 17.5mg/mL Susp 120 ML BOT PO PRN (17:10)
[2017-08-21] MEDS: Haloperidol 5 MG TAB PO SCH (20:12)
[2017-08-21] MEDS ORDERED: ASENAPINE MALEATE 10 MG SL SCH (21:00)
--- NOTE | 2017-08-22 05:58 | PDOC.FM ---
- Subjective Subjective: Mr Dodd is a 46yo male with pmh of schizoaffective, spindle cell osteosarcoma, Fe def anemia, DMII, HTN, and HLD who presents with acute psychosis and elevated CK. Today he is doing well. Denies pain, MONGE. Reports sleeping poorly. - Objective MAR Reviewed: Yes Vital Signs & Weight: Vital Signs (12 hours) Temp Pulse Resp BP Pulse Ox 08/22/17 04:00 99 F 78 18 153/83 H 96 08/21/17 23:53 99 F 71 17 145/85 H 97 08/21/17 21:42 98 08/21/17 20:37 99.1 F 82 18 99 08/21/17 20:00 99.1 F 82 18 137/81 99 Result Diagrams: 08/21/17 07:12 08/21/17 07:12 Phys Exam - Physical Examination Constitutional: NAD Respiratory: clear to auscultation bilateral Cardiovascular: RRR Musculoskeletal: pulses present Left leg amputee Psychiatric: normal affect Skin: cap refill <2 seconds Dx/Plan (1) Elevated CK Status: Acute (2) Acute psychosis Code(s): F23 - BRIEF PSYCHOTIC DISORDER Status: Acute (3) Iron deficiency anemia Code(s): D50.9 - IRON DEFICIENCY ANEMIA, UNSPECIFIED Status: Chronic (4) Anemia Code(s): D64.9 - ANEMIA, UNSPECIFIED Status: Chronic (5) HLD (hyperlipidemia) Code(s): E78.5 - HYPERLIPIDEMIA, UNSPECIFIED Status: Chronic (6) Osteosarcoma Code(s): C41.9 - MALIGNANT NEOPLASM OF BONE AND ARTICULAR CARTILAGE, UNSP Status: Chronic (7) DM2 (diabetes mellitus, type 2) Status: Chronic (8) Schizoaffective disorder Code(s): F25.9 - SCHIZOAFFECTIVE DISORDER, UNSPECIFIED Status: Chronic (9) Spindle cell carcinoma Code(s): C80.1 - MALIGNANT (PRIMARY) NEOPLASM, UNSPECIFIED Status: Acute (10) HTN (hypertension) Code(s): I10 - ESSENTIAL (PRIMARY) HYPERTENSION Status: Chronic - Plan Plan: Mr Dodd is a 46 yo male here for Acute Psychosis and elevated CK 1. 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 Acute Psychosis - History of schizophrenia. Plan to transfer to [facility] for CK ( policy is <1000) - Sitter in the Room - Cont home meds 3. Leukocytosis -trend WBC. 4. Iron Deficiency Anemia - Supplement with Fe - Needs outpatient colonoscopy 5. Hypokalemia -Oral K 40 meq 1 x dose 6. Osteosarcoma - See if can get records from [place] where he gets chemotherapy - Per pt [facility] chart: Sees Dr. Saldana? 7. HTN - Continue lisinopril - Monitor BPs 8. HLD -Hold home statin, since this can be a cause of increased CK 9. Schizoaffective Disorder - Cont home meds - Denies SI/HI 10. DM II - Cont home metformin - ACHS Accuchecks 11. Osteosarcoma - Continue outpatient treatment
[2017-08-22] MEDS: Acetaminophen 325 MG TAB PO PRN ×2 (06:26→15:46)
[2017-08-22] MEDS ORDERED: metFORMIN 500 MG TAB PO SCH (08:00)
[2017-08-22] MEDS: Aspirin 81 mg Enteric Coated Tablet PO SCH (09:23)
[2017-08-22] MEDS: Enoxaparin Sodium 40 MG/0.4 ML SYRINGE SC SCH (09:24)
[2017-08-22] MEDS: Lisinopril 10 MG TAB PO SCH (09:24)
[2017-08-22] MEDS: Haloperidol 5 MG TAB PO SCH (09:24)
[2017-08-22] MEDS: Ziprasidone 20 MG VIAL IM PRN ×2 (09:45→17:26)
[2017-08-22] MEDS: Bupropion 150 MG SR TAB PO SCH (09:56)
[2017-08-22] MEDS ORDERED: diphenhydrAMINE 50 MG/ML VIAL IM SCH (10:30)
[2017-08-22] MEDS ORDERED: Lorazepam 2 MG/ML VIAL SLOW IVP SCH (10:30)
[2017-08-22] MEDS: Lactated Ringer's 1,000 ML IV SCH (10:41)
--- NOTE | 2017-08-22 12:44 | PDOC.EVN ---
Event Note - Event Note Event Note: Spoke with Accepting physician at [facility]. They have accepted patient. Will fax over recent lab results.
[2017-08-22 15:48] VITALS: BP 136/78; TEMP 98.4
--- NOTE | 2017-08-22 15:54 | ADD-PRG ---
Please see the note from Dr. Calista Lira for which I agree. The patient was seen and evaluated, ex amined and discussed with the resident by the bedside. Patient is here for psychiatric reasons and is medically cleared, but there is some question if the p sychiatric facility was slightly elevated, but this is a chronic issue from his rhabdo-sarcoma issues and there is no evidence of rhabdomyolysis, so he is medically cleared. We are having some di fficulties trying to get basically him calm, as he is totally convinced there is a family member in [facility] trying to kill him, but at the time of discussion, did not seem to be harm to himself or others currently, but definitely needs psychiatric inpatient admission for uncontrolled schizophrenia .
[2017-08-22] MEDS ORDERED: Sterile Water 10 ML VIAL FS PRN (17:19)
--- NOTE | 2017-08-23 09:02 | DIS-2 ---
DATE OF ADMISSION: 08/21/2017 DATE OF DISCHARGE: 08/22/2017 RESIDENT: Calista Lira, PGY-1. ADMITTING ATTENDING: Liban Salas MD DISCHARGE ATTENDING: Gary Castrejon M.D. CONSULTATIONS: [facility]. PROCEDURES: None. PRIMARY DIAGNOSES: 1. 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 2. Acute psychoses. SECONDARY DIAGNOSES: 1. Leukocytosis. 2. Iron-deficiency anemia. 3. Hypokalemia. 4. Osteosarcoma. 5. Hypertension. 6. Hyperlipidemia. 7. Schizoaffective disorder. 8. Type 2 diabetes. DISCHARGE MEDICATIONS: 1. Saphris 10 mg sublingual daily. 2. Baby aspirin daily. 3. Bupropion 150 mg b.i.d. 4. Ferrous sulfate 300 mg daily. 5. [place]y 10/325 q.4 hours p.r.n. 6. Lisinopril 10 daily. 7. Metformin 500 daily. 8. MiraLax 17 grams daily. 9. Simvastatin 20 mg daily. 10. Imitrex 50 mg every 2 hours. DISCONTINUED MEDICATIONS: 1. Seroquel. HISTORY OF PRESENT ILLNESS AND HOSPITAL COURSE: A 46-year-old male with past medical history of schizoaffective disorder and osteosarcoma presented with acute psychosis and elevated CK. He was denied direct admission into [facility] due to his elevated CK. He received 8 liters in the ED but CK continued to rise. He was admitted for medical management of his elevated CK. His vitals were stable throughout his stay. White blood cell count was 18.6, he had no signs of rigidity. We continued to trend CK until it was stable and he was admitted into [facility]. We continued home medications for his chronic conditions of HTN, HLD, DMII. These were stable throughout hospital stay. DISPOSITION: Stable. DISCHARGE INSTRUCTIONS: 1. Location: [facility]. 2. Diet: No restrictions. 3. Activity: No restrictions. 4. Follow up with and with Dr. Lau on discharge from [facility]. [facility]
== END 2017-08-22 17:45 | disposition short-term general hospital (02) | DRG 885 ==
LOC: ERS 00:04 → SURG B 08-21 03:18
PROVIDERS: ADMIT Student in an Organized Health Care Education/Training Program; ATTEND Student in an Organized Health Care Education/Training Program
DX: F23 Brief psychotic disorder (principal); C41.9 Malignant neoplasm of bone and articular cartilage, unspecified; R94.4 Abnormal results of kidney function studies; F25.9 Schizoaffective disorder, unspecified; D72.829 Elevated white blood cell count, unspecified; D50.9 Iron deficiency anemia, unspecified; E87.6 Hypokalemia; I10 Essential (primary) hypertension; E78.5 Hyperlipidemia, unspecified; E11.9 Type 2 diabetes mellitus without complications; Z79.84 Long term (current) use of oral hypoglycemic drugs; Z89.612 Acquired absence of left leg above knee
CPT/HCPCS: 36415; 36416; 80053; 80306; 80307; 81003; 82550; 84443; 85025; A4216; J1200; J1630; J1650; J2060; J3486

== ENCOUNTER → 2017-09-01 | Emergency (ER) | payer OTHER ==
[~2017-09-01] MED LIST: Acetaminophen 500 MG TAB ONE; Aspirin 81 mg Enteric Coated Tablet ONE; Atorvastatin Calcium 10 MG TAB PO SCH; Ferrous Sulfate 325 MG TAB PO SCH; Lorazepam 1 MG TAB ONE; Lorazepam 2 MG/ML VIAL ONE; SAPHRIS 10 MG SL SCH; SENEXON PO SCH; Senokot S 8.6-50 MG TAB PO SCH; clonazePAM 1 MG TAB ONE; clonazePAM 1 MG TAB PO SCH; metFORMIN 500 MG TAB PO SCH; risperiDONE 0.25 MG TAB PO SCH; risperiDONE 1 MG TAB ONE
[2017-09-01 19:18] LABS: #Lymphocytes 1.2 thou/uL (1.20-3.40); #Monocytes 0.4 thou/uL (0.11-0.59); #Neutrophils 2.2 thou/uL (1.40-6.50); %Basophils 0.6 % (0.0-1.0); %Eosinophils 0.9 % (0.0-10.0); %Lymphocytes 30.1 % (21.0-51.0); %Monocytes 11.1 % (0.0-10.0); %Neutrophils 57.2 % (42.0-75.0); Hemoglobin 7.5 g/dL (14.0-18.0); Mean Corpuscular Hemoglobin 26.9 pg (27.0-31.0); Mean Corpuscular Volume 81.4 fL (78.0-98.0); Mean Platelet Volume 7.6 fL (7.4-10.4); Platelet Count 219 thou/uL (130-400); RBC Distribution Width 16.5 % (11.5-14.5); Red Blood Cell (RBC) Count 2.79 mill/uL (4.70-6.10); White Blood Cell (WBC) Count 3.9 thou/uL (4.8-10.8)
[2017-09-01 19:32] LABS: ALT (SGPT) 15 U/L (8-55); AST (SGOT) 17 U/L (5-34); Acetaminophen Less than 6.0 mcg/mL (10.0-30.0); Albumin 3.9 g/dL (3.5-5.0); Alcohol Less than 10 mg/dL (Less than 10); Alkaline Phosphatase 81 U/L (40-150); Anion Gap 13 mmol/L (10-20); BUN (Urea Nitrogen) 16 mg/dL (8.9-20.6); Bilirubin, Total Less than 0.2 mg/dL (0.2-1.2); CK (CPK) 157 U/L (30-200); Calc. Creatinine Clearance 0 mL/min (70-130); Calcium 8.5 mg/dL (7.8-10.44); Carbon Dioxide 23 mmol/L (22-29); Chloride 105 mmol/L (98-107); Estimated GFR-MDRD Greater than 90; Globulin 2.6 g/dL (2.4-3.5); Glucose 99 mg/dL (70-105); Potassium 3.9 mmol/L (3.5-5.1); Protein, Total 6.5 g/dL (6.0-8.3); Salicylate Less than 8.0 mg/dL (15.0-30.0); Sodium 137 mmol/L (136-145)
[2017-09-01 19:34] LABS: CKMB 2.1 ng/mL (0-6.6); Troponin I Less than 0.010 ng/mL (< 0.028)
[2017-09-01 23:45] LABS: Amphetamine Not Detected (NotDetected); Barbiturates Screen Detected (NotDetected); Benzodiazepine Screen Detected (NotDetected); Cocaine Metabolite Screen Not Detected (NotDetected); Medtox Control Line Valid? VALID (VALID); Medtox Reader # READER 4; Methadone Not Detected (NotDetected); Methamphetamine Not Detected (NotDetected); Opiate Screen Not Detected (NotDetected); Oxycodone Screen Not Detected (NotDetected); Phencyclidine (PCP) Not Detected (NotDetected); THC/Cannabinoid Screen Not Detected (NotDetected); Tricyclic Screen Not Detected (NotDetected)
== END ==
LOC: ERS 18:39
DX: E86.0 Dehydration (principal); R45.851 Suicidal ideations; R45.850 Homicidal ideations; F32.9 Major depressive disorder, single episode, unspecified; I10 Essential (primary) hypertension; E11.9 Type 2 diabetes mellitus without complications; E78.00 Pure hypercholesterolemia, unspecified; F31.9 Bipolar disorder, unspecified; F20.9 Schizophrenia, unspecified; F17.210 Nicotine dependence, cigarettes, uncomplicated; Z79.899 Other long term (current) drug therapy; Z79.82 Long term (current) use of aspirin; Z79.84 Long term (current) use of oral hypoglycemic drugs
CPT/HCPCS: 36415; 36416; 80053; 80306; 80307; 82550; 82553; 84484; 85025; 93005; 96374; J2060

== ENCOUNTER 2017-12-29 06:19 | Emergency (ER) | payer OTHER ==
[2017-12-29 07:20] LABS: Bilirubin Negative (Negative); Blood, Urine Negative (Negative); Clarity CLEAR (Clear); Glucose, Urine (Dipstick) Negative (Negative); Leukocyte Negative (Negative); Nitrite Negative (Negative); Protein, Urine (Dipstick) Negative (Neg-Trace); Specific Gravity, Urine 1.003 (1.002-1.036); Urobilinogen 0.2 mg/dL (0.2-1.0)
[2017-12-29 07:26] LABS: #Basophils 0.1 thou/uL (0.0-0.2); #Eosinphils 0.2 thou/uL (0.0-0.7); #Lymphocytes 1.4 thou/uL (1.20-3.40); #Monocytes 0.6 thou/uL (0.11-0.59); #Neutrophils 5.1 thou/uL (1.40-6.50); %Basophils 0.8 % (0.0-1.0); %Eosinophils 2.6 % (0.0-10.0); %Lymphocytes 19.3 % (21.0-51.0); %Monocytes 8.5 % (0.0-10.0); %Neutrophils 68.7 % (42.0-75.0); Hemoglobin 9.1 g/dL (14.0-18.0); Mean Corpuscular HGB CONC 31.7 g/dL (32.0-36.0); Mean Corpuscular Hemoglobin 24.4 pg (27.0-31.0); Mean Platelet Volume 9.5 fL (7.4-10.4); Platelet Count 247 thou/uL (130-400); RBC Distribution Width 16.4 % (11.5-14.5); White Blood Cell (WBC) Count 7.4 thou/uL (4.8-10.8)
[2017-12-29 07:37] LABS: ALT (SGPT) 16 U/L (8-55); AST (SGOT) 22 U/L (5-34); Alkaline Phosphatase 81 U/L (40-150); Anion Gap 13 mmol/L (10-20); BUN (Urea Nitrogen) 11 mg/dL (8.9-20.6); Bilirubin, Total 0.5 mg/dL (0.2-1.2); Calc. Creatinine Clearance 0 mL/min (70-130); Calcium 9.3 mg/dL (7.8-10.44); Carbon Dioxide 22 mmol/L (22-29); Chloride 88 mmol/L (98-107); Estimated GFR-MDRD Greater than 90; Globulin 2.7 g/dL (2.4-3.5); Glucose 103 mg/dL (70-105); Magnesium 1.5 mg/dL (1.6-2.6); Potassium 3.2 mmol/L (3.5-5.1); Protein, Total 6.7 g/dL (6.0-8.3); Sodium 120 mmol/L (136-145)
[2017-12-29 07:39] LABS: CKMB 3.4 ng/mL (0-6.6); Troponin I Less than 0.010 ng/mL (< 0.028)
[2017-12-29] MEDS ORDERED: Lorazepam 1 MG TAB ONE (07:55)
[2017-12-29] MEDS ORDERED: POTASSIUM CHLORIDE IVPB SCH (08:15)
[2017-12-29] MEDS ORDERED: MAGNESIUM SULFATE IVPB SCH (08:15)
[2017-12-29] MEDS ORDERED: SODIUM CHLORIDE 0.9% IVPB SCH (08:15)
--- NOTE | 2017-12-29 08:26 | RAD ---
CHEST PA AND LATERAL: History: 47-year-old male with history of generalized malaise, not feeling good, insomnia. Patient has spindle cell sarcoma and is on chemotherapy. FINDINGS: Right central line and injection port. Heart size is normal. 2.9 cm diameter circumscribed nodule in the right lower lobe posteriorly with a smaller 1.2 cm diameter circumscribed nodule in the right low er lobe as well. No confluent pneumonia, overt edema, or pleural effusion. Compared to the 04-10-17 екатерина dy, previously noted left upper lobe nodule is no longer evident. IMPRESSION: Two circumscribed nodules in the right lower lobe, the largest measures approximately 2.9 cm, evidenc e for metastasis. No evidence for pneumonia or acute edema or cardiomegaly. POS: MAYA
== END 2017-12-29 12:18 | disposition short-term general hospital (02) ==
LOC: ERS 06:19
DX: E87.1 Hypo-osmolality and hyponatremia (principal); E87.6 Hypokalemia; I10 Essential (primary) hypertension; E11.9 Type 2 diabetes mellitus without complications; F31.9 Bipolar disorder, unspecified; F17.210 Nicotine dependence, cigarettes, uncomplicated; Z71.6 Tobacco abuse counseling; Z89.612 Acquired absence of left leg above knee; Z79.82 Long term (current) use of aspirin; Z79.899 Other long term (current) drug therapy
CPT/HCPCS: 71046; 80053; 81003; 82553; 83735; 83930; 84443; 84484; 85025; 87804; 93005; 96361; 96365; 96366; 96368; 99406; J3475; J3480; J7050

== ENCOUNTER 2018-01-02 01:15 | Emergency (ER) | payer OTHER | END 2018-01-02 04:08 | disposition home or self-care (01) | LOC: ERS 01:15 | DX: G47.00 Insomnia, unspecified (principal); E11.9 Type 2 diabetes mellitus without complications; E78.00 Pure hypercholesterolemia, unspecified; F31.9 Bipolar disorder, unspecified; F17.210 Nicotine dependence, cigarettes, uncomplicated; F20.9 Schizophrenia, unspecified; Z76.5 Malingerer [conscious simulation] | CPT/HCPCS: 99283 ==

== ENCOUNTER 2018-01-03 17:40 | Observation (INO) | payer OTHER ==
[2018-01-03 18:22] LABS: #Eosinphils 0.1 thou/uL (0.0-0.7); #Lymphocytes 0.7 thou/uL (1.20-3.40); #Monocytes 0.4 thou/uL (0.11-0.59); #Neutrophils 3.8 thou/uL (1.40-6.50); %Basophils 0.4 % (0.0-1.0); %Eosinophils 1.3 % (0.0-10.0); %Lymphocytes 13.6 % (21.0-51.0); %Monocytes 8.7 % (0.0-10.0); Hemoglobin 7.8 g/dL (14.0-18.0); Mean Corpuscular HGB CONC 33.5 g/dL (32.0-36.0); Mean Corpuscular Hemoglobin 25.8 pg (27.0-31.0); Mean Corpuscular Volume 77.1 fL (78.0-98.0); Mean Platelet Volume 8.1 fL (7.4-10.4); Platelet Count 243 thou/uL (130-400); RBC Distribution Width 16.2 % (11.5-14.5); Red Blood Cell (RBC) Count 3.02 mill/uL (4.70-6.10); White Blood Cell (WBC) Count 5.1 thou/uL (4.8-10.8)
[2018-01-03 18:44] LABS: ALT (SGPT) 15 U/L (8-55); AST (SGOT) 22 U/L (5-34); Albumin 3.7 g/dL (3.5-5.0); Alkaline Phosphatase 71 U/L (40-150); Anion Gap 16 mmol/L (10-20); BUN (Urea Nitrogen) 6 mg/dL (8.9-20.6); Bilirubin, Total 0.2 mg/dL (0.2-1.2); Calc. Creatinine Clearance 0 mL/min (70-130); Calcium 8.4 mg/dL (7.8-10.44); Carbon Dioxide 20 mmol/L (22-29); Chloride 87 mmol/L (98-107); Estimated GFR-MDRD Greater than 90; Globulin 2.5 g/dL (2.4-3.5); Glucose 130 mg/dL (70-105); Lipase 56 U/L (8-78); Magnesium 1.3 mg/dL (1.6-2.6); Potassium 3.1 mmol/L (3.5-5.1); Protein, Total 6.2 g/dL (6.0-8.3); Sodium 120 mmol/L (136-145)
[2018-01-03 19:38] LABS: Bilirubin Negative (Negative); Blood, Urine Negative (Negative); Clarity CLEAR (Clear); Glucose, Urine (Dipstick) Negative (Negative); Leukocyte Negative (Negative); Nitrite Negative (Negative); Protein, Urine (Dipstick) Negative (Neg-Trace); Specific Gravity, Urine 1.001 (1.002-1.036); Urobilinogen 0.2 mg/dL (0.2-1.0); pH, Urine 6.5 (5.0-9.0)
[2018-01-03] MEDS ORDERED: Potassium Chloride 20 MEQ TAB ONE (20:17)
[2018-01-03] MEDS ORDERED: Magnesium 2 GM/50 ML BAG (IN WATER) ONE (20:17)
--- NOTE | 2018-01-03 20:42 | CT ---
BRAIN CT WITHOUT IV CONTRAST: History: 47-year-old male with history of headache, right sided numbness. Patient is receiving chemotherapy fo r metastatic cancer. FINDINGS: No focal mass or midline shift. No intra or extraaxial hemorrhage. Sinuses and mastoids are clear of acute process. IMPRESSION: No significant acute intracranial process. No mass or bleed. POS: RRE
--- NOTE | 2018-01-03 21:19 | PDOC.FPRHP ---
- History of Present Illness Chief Complaint: weakness History of Present Illness: This is a 47 yo AA M w/ PMH significant for sarcoma in the LLE s/p amputation. Patient presents today with CC of weakness. Patient states that he has had weakness for many years but became worse today. Per ED physician, patient had new onset right sided numbness and tingling, but per patient, he denies new onset numbness and tingling. Patient states that he does have some numbness and tingling occasionally in extremities but that this was not new. patient notes that he has been constipated over the week. Patient is currently undergoing chemotherapy at [facility] in [place]. His last treatment was 2 months ago. Patient states that he was also diagnosed with lung cancer. Patient states that he has felt hot and cold with no reported temperature. Patient endorses headaches but that he has had headaches intermittently for years. Patient currently is staying at [facility] for the last 2 weeks. Of note, patient was in the ER yesterday after eating something that caused his face to swell. Patient denies any similar symptoms today. ED Course: 324 mg ASA, 15mg temazepam, 60mg K-dur, 2g Mg - Allergies/Adverse Reactions Allergies Allergy/AdvReac Type Severity Reaction Status Date / Time No Known Drug Allergies Allergy Verified 08/21/17 08:28 gabapentin AdvReac Unknown Verified 08/21/17 08:28 - Home Medications Medication Instructions Recorded Confirmed Type Asenapine Maleate [Saphris] 10 mg SL QPM 08/21/17 08/21/17 History Aspirin [Aspir-Low] 81 mg PO DAILY 08/21/17 08/21/17 History BuPROPion SR [Wellbutrin SR] 150 mg PO BID 08/21/17 08/21/17 History HYDROcodone/Acetaminophen [Limestone 1 tablet PO Q4HR 08/21/17 08/21/17 History 10-325 Tablet] Lisinopril 10 mg PO DAILY 08/21/17 08/21/17 History Polyethylene Glycol 3350 [Miralax] 17 gm PO DAILY PRN 08/21/17 08/21/17 History SUMAtriptan Succinate [Imitrex] 50 mg PO Q2HR PRN MDD 200 mg/24 hrs 08/21/17 History Simvastatin 20 mg PO QPM 08/21/17 08/21/17 History metFORMIN HCl [Metformin HCl] 1 tablet PO DAILY 08/21/17 08/21/17 History Ferrous Sulfate 300 mg PO DAILY udcup 08/22/17 Rx metFORMIN [Glucophage] 500 mg PO QAM-WM tab 08/22/17 Rx - History PMHx: LLE sarcoma s/p amputation, DMII, HTN, Lung cancer PSHx: LLE amputation FHx: non contributory Social: tobacco - smokes 4-5 cigarettes/day > 20 years, denies alcohol or drug use - Review of Systems General: reports: fever/chills, weight/appetite/sleep changes, fatigue. denies : night sweats Eyes: denies: eye pain, vision changes ENT: denies: nasal congestion, rhinorrhea Respiratory: denies: cough, congestion, shortness of breath Cardiovascular: denies: chest pain, palpitation, edema Gastrointestinal: reports: constipation. denies: nausea, vomiting, diarrhea, abdominal pain Genitourinary: denies: incontinence, dysuria, polyuria Skin: denies: rashes, lesions, jaundice Musculoskeletal: denies: pain, tenderness Neurological: reports: numbness, weakness - Vital signs BP: 113/62 HR: 70 RR: 16 Tmax: 98.1 Pox: 97% on RA Wt: 72.6kg - Physical Exam Constitutional: NAD, awake, alert and oriented, well developed HEENT: normocephalic and atraumatic, PERRLA, EOMI, no scleral icterus, grossly normal vision, grossly normal hearing -HEENT: MM dry Neck: supple, FROM, trachea midline Chest: no-tender to palpation, no lesions Heart: RRR, normal S1/S2, no murmurs/rubs/gallops, pulses present, no edema Lungs: CTAB, no respiratory distress, good air movement, no wheezing Abdomen: soft, non-tender, bowel sounds present, no masses/distention, no hernias Musculoskeletal: normal structure -Musculoskeletal: LLE amputation, stump site clean and dry Neurological: no focal deficit, CN II-XII intact -Neurological: left deltoid numbness, strength 5/5 in bilateral upper extremities, no clonus, neg babinski Skin: no rash/lesions, good turgor -Psychiatric: flat affect, inconsistent historian FMR H&P: Results - Labs Result Diagrams: 01/04/18 01:54 01/04/18 01:55 Lab results: WBC 5.1 thou/uL (4.8-10.8) 01/03/18 18:12 Hgb 7.8 g/dL (14.0-18.0) L 01/03/18 18:12 Hct 23.3 % (42.0-52.0) L 01/03/18 18:12 MCV 77.1 fL (78.0-98.0) L 01/03/18 18:12 Plt Count 243 thou/uL (130-400) 01/03/18 18:12 Neutrophils % 76.0 % (42.0-75.0) H 01/03/18 18:12 Sodium 120 mmol/L (136-145) L 01/03/18 18:12 Potassium 3.1 mmol/L (3.5-5.1) L 01/03/18 18:12 Chloride 87 mmol/L (98-107) L 01/03/18 18:12 Carbon Dioxide 20 mmol/L (22-29) L 01/03/18 18:12 BUN 6 mg/dL (8.9-20.6) L 01/03/18 18:12 Creatinine 0.75 mg/dL (0.6-1.3) 01/03/18 18:12 Glucose 130 mg/dL (70-105) H 01/03/18 18:12 Calcium 8.4 mg/dL (7.8-10.44) 01/03/18 18:12 Total Bilirubin 0.2 mg/dL (0.2-1.2) 01/03/18 18:12 AST 22 U/L (5-34) 01/03/18 18:12 ALT 15 U/L (8-55) 01/03/18 18:12 Alkaline Phosphatase 71 U/L (40-150) 01/03/18 18:12 Serum Total Protein 6.2 g/dL (6.0-8.3) 01/03/18 18:12 Albumin 3.7 g/dL (3.5-5.0) 01/03/18 18:12 Lipase 56 U/L (8-78) 01/03/18 18:12 Urine Ketones Negative mg/dL (Negative) 01/03/18 19:15 Urine Blood Negative (Negative) 01/03/18 19:15 Urine Nitrite Negative (Negative) 01/03/18 19:15 Ur Leukocyte Esterase Negative (Negative) 01/03/18 19:15 - Radiology Interpretation CT scan - head Status: report reviewed by me (no acute process - no mass/bleed) FMR H&P: A/P - Problem List (1) Hypomagnesemia Current Visit: Yes Status: Acute Code(s): E83.42 - HYPOMAGNESEMIA (2) Chronic hyponatremia Current Visit: No Status: Acute Code(s): E87.1 - HYPO-OSMOLALITY AND HYPONATREMIA (3) Hypokalemia Current Visit: No Status: Acute Code(s): E87.6 - HYPOKALEMIA (4) DM2 (diabetes mellitus, type 2) Current Visit: No Status: Chronic (5) HLD (hyperlipidemia) Current Visit: No Status: Chronic Code(s): E78.5 - HYPERLIPIDEMIA, UNSPECIFIED (6) HTN (hypertension) Current Visit: No Status: Chronic Code(s): I10 - ESSENTIAL (PRIMARY) HYPERTENSION (7) Osteosarcoma Current Visit: No Status: Chronic Code(s): C41.9 - MALIGNANT NEOPLASM OF BONE AND ARTICULAR CARTILAGE, UNSP (8) Schizoaffective disorder Current Visit: No Status: Chronic Code(s): F25.9 - SCHIZOAFFECTIVE DISORDER , UNSPECIFIED - Plan Hyponatremia - Na 120 - Could be 2/2 to HCTZ vs SIADH - Will check q2 X 2 and then q4 until resolution - Will fluid restrict 1500ml/day - Urine Na less than 20 - avoid correction > 9 in 24 hour period. Hypokalemia - K 3.1 - Will replace as needed - Will check with serial BMPs Hypomagnesemia - Mg 1.3 - Will replace as needed - AM Mg to recheck level Weakness, Numbness, Tingling - 2/2 to TIA vs electrolyte abnormality vs stroke - CT neg - Will obtain MRI and carotid doppler due to inconsistent hx from ER and on our exam as well as inconsistent PE Hx of Sarcoma of LLE - s/p amputation - mets to lungs - patient has f/u w/ specialist Dr. Grady at [facility] Hx of DM - aware, continue home meds - Mild SS, ACHS accuchecks - hypoglycemia protocol Hx of HTN - aware - hold HCTZ due to low Na Hx of HLD - aware, continue home meds Hx of Drug Use - Will obtain UDS Current Smoker - nicotine patch - smoking cessation counseling Schizoaffective Disorder - aware, continue home meds DISPO: will admit to stroke for observation CODE: FULL Case discussed with Dr. Delaney FMR H&P: Upper Level - Pertinent history Isaiah Dodd is a 47 year old male with a past history of Sarcoma who presents to the ED with multiple chronic complaints, the chief of which being a several year history of right sided numbness and tingling. He is currently undergoing chemotherapy for his cancer at [facility]. Last treatment was 2 months ago. He also complains of several years of generalized weakness and headaches. He denies any acute changes in the character of his headache and parasthesias. H - Pertinent findings Vitals: BP 119/71 P: 81 RR: 16 T: 98.2 O2: 98% on RA Physical Exam: General: pt alert and oriented. In no apparent distress. Answers questions appropriately HEENT: dry mucus membranes Heart: Regular rate and rhythm, no murmurs, rubs or gallops. Lungs: Clear to auscultation bilaterally. Neuro: CN II-XII intact. No focal motor deficits. Decrease sensation over left upper extremity. No clonus. Negative Babinski. Na: 120 Serum Osm: 258 Urine Osm: 58 K: 3.[address] head: negative for acute intracranial pathology. - Plan Date/Time: 01/03/182109 I, Jaki Bonilla, have evaluated this patient and agree with findings/plan as outlined by partner marketing intern resident. Pertinent changes/additions are listed here. Chronic hypotonic hyponatremia - pt appears hypovolemic on exam. - may be related to thiazide use vs. SIADH - plan to hold thiazide diuretic and fluid restrict. - will check BMP now and repeat in 2 hours. - avoid correction > 9 in 24 hour period. Hypokalemia - pt received replacement in ED. - will monitor with AM BMP Hypomagnesemia - s/p replacement. - will repeat in AM. 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 - Pt has regular follow-up with specialists at [facility]. Schizoaffective disorder - continue home medications. Essential hypertension - will resume lisinopril - discontinue hydrochlorothiazide. May adjust lisinopril if needed. Hyperlipidemia - continue Simvastatin. Attending Addendum - Attending Addendum Date/Time: 01/04/18726 I personally evaluated the patient and discussed the management with Dr. Naranjo and Irene. I agree with and repeated the History, Examination, Assessment and Plan documented above with any addition or exceptions noted below. Patient poor informant. States he has been feeling back but cannot tell me many specifics. He states he has had years of intermittent paresthesias and numbness in his extremities, but nothing acute. Has had some intermittent headache over a period of months. On exam, NAD, resting comfortably and somewhat adversarial. RRR s M, CTAB s w/r/r, BS+, NTTP; when I proceeded to a neurologic exam he refused, and therefore my exam was limited. ROS otherwise negative. Imaging reviewed and labs as well. Multiple mets on CT from earlier this year, so I highly anticipate SIADH d/t malignancy. Will admit. Urine lytes. Fluid restrict. Serial lights. Na rise < 9/24h.
[2018-01-03] MEDS ORDERED: Temazepam 15 MG CAP PO PRN (21:50)
[2018-01-04 02:24] LABS: Anion Gap 11 mmol/L (10-20); BUN (Urea Nitrogen) 7 mg/dL (8.9-20.6); Calc. Creatinine Clearance 0 mL/min (70-130); Calcium 9.6 mg/dL (7.8-10.44); Carbon Dioxide 27 mmol/L (22-29); Chloride 101 mmol/L (98-107); Estimated GFR-MDRD Greater than 90; Glucose 97 mg/dL (70-105); Potassium 4.2 mmol/L (3.5-5.1); Sodium 135 mmol/L (136-145)
[2018-01-04] MEDS ORDERED: Dextrose 50% Abboject 50 ML SYRINGE SLOW IVP PRN (04:46)
[2018-01-04] MEDS ORDERED: Acetaminophen 325 MG TAB PO PRN (04:46)
[2018-01-04] MEDS ORDERED: Dextrose 5% in Water 1,000 ML IV PRN (04:46)
[2018-01-04] MEDS ORDERED: Ondansetron PF 4 MG/2 ML Vial IVP PRN (04:46)
[2018-01-04] MEDS ORDERED: Ondansetron ODT 4 MG TAB PO PRN (04:46)
[2018-01-04] MEDS ORDERED: HumaLOG 300 UNITS/3 ML VIAL SC PRN (04:46)
[2018-01-04] MEDS ORDERED: Senokot S 8.6-50 MG TAB PO PRN (04:46)
--- NOTE | 2018-01-04 05:51 | PDOC.FM ---
- Subjective Subjective: Complains of headache, requesting tylenol with codeine to help him go to sleep. Denies problems with ambulating, abnormal sensation, speech slurring. Extremity numbness and tingling have improved. - Objective MAR Reviewed: Yes Result Diagrams: 01/04/18 01:54 01/04/18 10:07 Phys Exam - Physical Examination Constitutional: NAD HEENT: PERRLA, moist MMs Respiratory: no wheezing, no rales, clear to auscultation bilateral Cardiovascular: RRR, no significant murmur Gastrointestinal: soft, non-tender, no distention, positive bowel sounds Musculoskeletal: pulses present left AKA Neurological: moves all 4 limbs Psychiatric: normal affect, A&O x 3 Skin: cap refill <2 seconds Dx/Plan (1) Hypo-osmolar hyponatremia Code(s): E87.1 - HYPO-OSMOLALITY AND HYPONATREMIA Status: Acute (2) Spindle cell carcinoma Code(s): C80.1 - MALIGNANT (PRIMARY) NEOPLASM, UNSPECIFIED Status: Acute (3) DM2 (diabetes mellitus, type 2) Status: Chronic (4) HTN (hypertension) Code(s): I10 - ESSENTIAL (PRIMARY) HYPERTENSION Status: Chronic (5) Iron deficiency anemia Code(s): D50.9 - IRON DEFICIENCY ANEMIA, UNSPECIFIED Status: Chronic (6) Schizoaffective disorder Code(s): F25.9 - SCHIZOAFFECTIVE DISORDER, UNSPECIFIED Status: Chronic - Plan Plan: 47 yo M with chronic hypotonic hyponatremia Chronic hypotonic hyponatremia -Currently Na corrected at 136 with fluid restriction & HCTZ discontinuation -Likely from thiazide diuretic use in setting of hypokalemia and Na correction with fluid restriction. With low urine Na/Osm SIADH less likely. -Continue holding HCTZ, continue fluid restrictions -Likely 2/2 to thiazide use (though patient denies use) or primary polydipsia since patient says "he drinks a lot of water" but unable to quantify. Weakness, Numbness, Tingling-Stroke r/o -DDx includes TIA (given risk factors) vs. ischemic stroke vs. effect of electrolyte abnormalities vs. mets (given chronic MONGE) -CTBrain neg. for hemorrhagic stroke -MRI today & carotid dopplers to further assess Chronic constipation -Will give milk of magnesia Chronic Iron def anemia -continue home iron DM2 -continue home metformin Spindle cell carcinoma - s/p LLE amputation -follows regularly at [facility] Schizoaffective disorder - continue home risperidal Essential hypertension -BP stable -start lisinopril 2.5 mg, adjust as needed Hyperlipidemia - continue Simvastatin. Hypokalemia, RESOLVED -continue with daily BMPs Hypomagnesemia, RESOLVED -continue with daily BMPs DVT ppx: lovenox Discussed with Dr. Mcbride Dispo: Pending completion of MRI brain, and patient is stable and electrolyte abnormalities stay corrected, can d/c to home today
[2018-01-04] MEDS ORDERED: Nicotine 21 MG PATCH TD SCH (06:00)
[2018-01-04 06:28] LABS: #Eosinphils 0.4 thou/uL (0.0-0.7); #Lymphocytes 1.4 thou/uL (1.20-3.40); #Monocytes 0.5 thou/uL (0.11-0.59); #Neutrophils 3.1 thou/uL (1.40-6.50); %Basophils 0.5 % (0.0-1.0); %Eosinophils 7.3 % (0.0-10.0); %Lymphocytes 25.8 % (21.0-51.0); %Monocytes 9.2 % (0.0-10.0); %Neutrophils 57.3 % (42.0-75.0); Hemoglobin 8.8 g/dL (14.0-18.0); Mean Corpuscular HGB CONC 31.1 g/dL (32.0-36.0); Mean Corpuscular Hemoglobin 24.5 pg (27.0-31.0); Mean Corpuscular Volume 78.9 fL (78.0-98.0); Platelet Count 289 thou/uL (130-400); RBC Distribution Width 16.5 % (11.5-14.5); Red Blood Cell (RBC) Count 3.57 mill/uL (4.70-6.10); White Blood Cell (WBC) Count 5.5 thou/uL (4.8-10.8)
--- NOTE | 2018-01-04 08:05 | ULT ---
BILATERAL CAROTID DUPLEX ULTRASOUND: DATE: 01/04/18 HISTORY: Right-sided weakness. FINDINGS: There is a small amount of plaque formation in the right carotid bulb. The peak systolic velocity in the right ICA measures 66 cm/second with an end-diastolic velocity of 3 0 cm/second and a systolic ratio of 0.56. The peak systolic velocity in the left ICA measures 62 cm/second with an end-diastolic velocity of 28 cm/second and a systolic ratio of 0.50. Flow in both vertebral arteries remains antegrade. IMPRESSION: No evidence of hemodynamically significant stenosis. POS: MARJAN
[2018-01-04] MEDS ORDERED: Lisinopril 2.5 MG TAB PO SCH (09:00)
[2018-01-04] MEDS ORDERED: Enoxaparin Sodium 40 MG/0.4 ML SYRINGE SC SCH (09:00)
[2018-01-04 09:17] VITALS: BP 107/74; TEMP 98.6
[2018-01-04 09:28] LABS: Anion Gap 12 mmol/L (10-20); BUN (Urea Nitrogen) 6 mg/dL (8.9-20.6); Calc. Creatinine Clearance 0 mL/min (70-130); Calcium 9.5 mg/dL (7.8-10.44); Carbon Dioxide 26 mmol/L (22-29); Chloride 101 mmol/L (98-107); Estimated GFR-MDRD Greater than 90; Glucose 114 mg/dL (70-105); Potassium 4.2 mmol/L (3.5-5.1); Sodium 135 mmol/L (136-145)
[2018-01-04] MEDS ORDERED: Enoxaparin Sodium 40 MG/0.4 ML SYRINGE ONE (09:47)
[2018-01-04] MEDS ORDERED: Milk Of Magnesia 30 ML UDCUP ONE (10:06)
[2018-01-04 10:37] LABS: Anion Gap 12 mmol/L (10-20); BUN (Urea Nitrogen) 6 mg/dL (8.9-20.6); Calc. Creatinine Clearance 0 mL/min (70-130); Calcium 9.5 mg/dL (7.8-10.44); Carbon Dioxide 27 mmol/L (22-29); Chloride 101 mmol/L (98-107); Estimated GFR-MDRD Greater than 90; Glucose 87 mg/dL (70-105); Potassium 4.3 mmol/L (3.5-5.1); Sodium 136 mmol/L (136-145)
[2018-01-04 12:23] LABS: Anion Gap 11 mmol/L (10-20); BUN (Urea Nitrogen) 6 mg/dL (8.9-20.6); Calc. Creatinine Clearance 0 mL/min (70-130); Calcium 9.9 mg/dL (7.8-10.44); Carbon Dioxide 29 mmol/L (22-29); Chloride 98 mmol/L (98-107); Estimated GFR-MDRD Greater than 90; Glucose 95 mg/dL (70-105); Potassium 4.5 mmol/L (3.5-5.1); Sodium 133 mmol/L (136-145)
[2018-01-04] MEDS ORDERED: SUMAtriptan Succinate 50 MG TAB PO PRN (12:33)
--- NOTE | 2018-01-04 12:42 | MRI ---
MRI BRAIN WITH AND WITHOUT CONTRAST: HISTORY: Metabolic encephalopathy. Right-sided numbness and constipation x 6 days. The patient is receiving chemotherapy for cancer. Malignant tumor of the left thigh. FINDINGS: No hemorrhage on the axial gradient echo sequence. No parenchymal mass, mass effect, or midline shift. Age-appropriate brain volume. Cortical trejo-whi te matter differentiation is preserved. Ventricles and sulci are patent and symmetric. Central arterial flow voids are maintained. Absent restricted diffusion. Partial opacification of the right mastoid air cells. Mucous retention cyst in the left maxillary si nus. Minimal mucosal thickening of the maxillary sinus. Calvarium has a normal T1 marrow signal intensity. Midline brain parenchymal structures are unremark able. No pathologic enhancement of the brain parenchyma. IMPRESSION: No pathologic enhancement of the brain parenchyma. POS: MAYA
[2018-01-04 12:55] LABS: Medtox Reader # READER 1
[2018-01-04 12:56] LABS: Amphetamine Not Detected (NotDetected); Barbiturates Screen Not Detected (NotDetected); Benzodiazepine Screen Not Detected (NotDetected); Cocaine Metabolite Screen Not Detected (NotDetected); Medtox Control Line Valid? VALID (VALID); Methadone Not Detected (NotDetected); Methamphetamine Not Detected (NotDetected); Opiate Screen Not Detected (NotDetected); Oxycodone Screen Not Detected (NotDetected); Phencyclidine (PCP) Not Detected (NotDetected); THC/Cannabinoid Screen Not Detected (NotDetected); Tricyclic Screen Not Detected (NotDetected)
[2018-01-04 14:36] LABS: Anion Gap 13 mmol/L (10-20); BUN (Urea Nitrogen) 6 mg/dL (8.9-20.6); Calc. Creatinine Clearance 0 mL/min (70-130); Calcium 10.3 mg/dL (7.8-10.44); Carbon Dioxide 28 mmol/L (22-29); Chloride 99 mmol/L (98-107); Estimated GFR-MDRD Greater than 90; Glucose 81 mg/dL (70-105); Potassium 4.7 mmol/L (3.5-5.1); Sodium 135 mmol/L (136-145)
--- NOTE | 2018-01-04 14:40 | ADD-PRG ---
ADDENDUM This is an addendum to the note of Dr. Amrita Rajan. Mr. Dodd was examined in the emergency room. He was admitted this morning with a sodium of 120. He did give a history of avid water drinking in the last 24-48 hours, and he does have a history of psychiatric illness on psychotropic medications. In the event by fluid restriction, his sodium is no w 135, his potassium is 4.2, chloride is 101, his bicarbonate is 27, BUN is 7, creatinine is 0.75. H e is completely awake and alert. He is not confused. He is not agitated. I am told that his sensor ium is about the same as it was when he came in late yesterday. He does have a history of headache, but this is not a new complaint. We will go ahead and proceed wi th an MRI, anticipation of possibly getting him to be discharged after the MRI and a period of observ ation. It is also possible that the initial serum sodium was ia lab error; however, given his history of adina d water drinking, he likely had some water intoxication which is self corrected by withholding fluids .
[2018-01-04] MEDS ORDERED: risperiDONE 1 MG TAB PO SCH (21:00)
--- NOTE | 2018-01-05 02:09 | DIS-2 ---
DATE OF ADMISSION: 01/03/2018 DATE OF DISCHARGE: 01/04/2018 RESIDENT: Amrita Rajan MD ADMITTING ATTENDING: Lucio Delaney MD DISCHARGE ATTENDING: Jovanny Sullivan MD CONSULTATIONS: None. PROCEDURES: None. IMAGIN. Brain CT negative for acute intracranial processes. 2. Brain MRI, no pathologic enhancement of the brain parenchyma. 3. Carotid Doppler studies within normal limits. PRIMARY DIAGNOSES: 1. Resolved hypotonic hyponatremia secondary to thiazide use versus primary polydipsia. 2. Resolved hypomagnesemia. 3. Resolved hypokalemia. SECONDARY DIAGNOSES: 1. 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 2. Schizoaffective disorder. 3. Insomnia. DISCHARGE MEDICATIONS: 1. Simvastatin 20 mg p.o. at bedtime. 2. Lisinopril 10 mg p.o. daily. 3. Aspirin 81 mg p.o. daily. 4. MiraLax 17 grams oral daily p.r.n. for constipation. 5. [place] 10/325 mg one tab q.4 hours p.r.n. pain. 6. Imitrex 50 mg p.o. q.2 hours p.r.n. for headache. 7. Bupropion SR 150 mg p.o. b.i.d. 8. Saphris 10 mg sublingual q.a.m. for schizophrenia. 9. Ferrous sulfate 300 mg p.o. daily. 10. Risperidone 0.5 mg p.o. b.i.d. 11. Sennosides 8.6 mg p.o. daily. 12. Metformin 500 mg p.o. b.i.d. with meals. HISTORY OF PRESENT ILLNESS AND HOSPITAL COURSE: Mr. Dodd is a 47-year-old male who presented to the ED for worsening weakness. In the ED, he was found to have hypotonic hyponatremia with a sodium of 120 in addition to hypomagnesemia and hypokalemia. He remained clinically stable, never experiencing seizures. Hyponatremia corrected with water restriction and discontinuation of HCTZ. It was thought that the hypotonic hyponatremia was secondary to thiazide use. In addition, the patient endorsed drinking "a lot of water" which could be consistent with hyponatremia secondary to primary polydipsia as also evidenced by urine studies that showed low sodium and low osmolality. In addition, patient reported right upper and lower body weakness and numbness. The patient is a poor historian, and it is unsure how long this had been going on for. He did not exhibit any other neurologic deficits. Due to inconsistent history from multiple teams, he was worked up for TIA, stroke, and lung metastasis to the brain (he has a history of spindle cell CA). Head imaging was negative. DISPOSITION: Stable. DISCHARGE INSTRUCTIONS: 1. Location: Home 2. Diet: Heart healthy diet. 3. Activity: Ad darren. FOLLOWUP: Please follow up with PCP in 7-10 days. MTDD
== END 2018-01-05 18:21 | disposition home or self-care (01) ==
LOC: ERS 17:40 → ERHOLD 20:12
PROVIDERS: ADMIT Emergency Medicine; ATTEND Emergency Medicine
DX: E87.1 Hypo-osmolality and hyponatremia (principal); E87.6 Hypokalemia; E83.42 Hypomagnesemia; C49.9 Malignant neoplasm of connective and soft tissue, unspecified; C78.00 Secondary malignant neoplasm of unspecified lung; D50.9 Iron deficiency anemia, unspecified; K59.09 Other constipation; G47.00 Insomnia, unspecified; I10 Essential (primary) hypertension; F17.210 Nicotine dependence, cigarettes, uncomplicated; E78.5 Hyperlipidemia, unspecified; F25.9 Schizoaffective disorder, unspecified; E11.9 Type 2 diabetes mellitus without complications; Z79.82 Long term (current) use of aspirin; Z79.84 Long term (current) use of oral hypoglycemic drugs; Z79.899 Other long term (current) drug therapy; Z88.8 Allergy status to other drugs, medicaments and biological substances
CPT/HCPCS: 36415; 36416; 70450; 70553; 80048; 80053; 80306; 81003; 83690; 83735; 83930; 83935; 84300; 85025; 93880; 96374; 99284; G0378; J1650

== ENCOUNTER 2018-01-05 17:23 | Emergency (ER) | payer OTHER | END 2018-01-05 17:55 | disposition home or self-care (01) | LOC: ERS 17:23 | DX: G89.29 Other chronic pain (principal); I10 Essential (primary) hypertension; E11.9 Type 2 diabetes mellitus without complications; E78.00 Pure hypercholesterolemia, unspecified; F31.9 Bipolar disorder, unspecified; F17.210 Nicotine dependence, cigarettes, uncomplicated; Z79.891 Long term (current) use of opiate analgesic; Z79.84 Long term (current) use of oral hypoglycemic drugs; Z79.82 Long term (current) use of aspirin | CPT/HCPCS: 99284 ==

== ENCOUNTER 2018-01-20 12:35 | Inpatient (IN) | payer OTHER ==
[2018-01-20 14:20] LABS: Hemoglobin 8.2 g/dL (14.0-18.0); Mean Corpuscular HGB CONC 31.9 g/dL (32.0-36.0); Mean Corpuscular Hemoglobin 24.6 pg (27.0-31.0); Mean Corpuscular Volume 77.3 fL (78.0-98.0); RBC Distribution Width 14.9 % (11.5-14.5); Red Blood Cell (RBC) Count 3.31 mill/uL (4.70-6.10); White Blood Cell (WBC) Count 10.1 thou/uL (4.8-10.8)
[2018-01-20 14:27] LABS: Bilirubin Negative (Negative); Blood, Urine Negative (Negative); Clarity CLEAR (Clear); Glucose, Urine (Dipstick) Negative (Negative); Leukocyte Negative (Negative); Nitrite Negative (Negative); Protein, Urine (Dipstick) Negative (Neg-Trace); Urobilinogen 0.2 mg/dL (0.2-1.0)
[2018-01-20 14:32] LABS: Anisocytosis SLIGHT = 6-15 cells (100X) (0-5/hpf); Band 29 % (5-11); Dohle Bodies SLIGHT; Hypochromia SLIGHT = 6-15 cells (100X) (0-5/hpf); Lymphocytes 15 % (21-51); MDiff Complete? YES; Mean Platelet Volume 10.6 fL (7.4-10.4); Microcytosis SLIGHT = 6-15 cells (100X) (0-5/hpf); Monocytes 2 % (0-10); Neutrophil 54 % (42-75); Ovalocytes SLIGHT = 2-5 cells (100X) (0-1/hpf); PLT Morphology Comment Appears Decreased; Platelet Count 80 thou/uL (130-400); Poikilocytosis SLIGHT = 6-15 cells (100X) (0-5/hpf); Polychromasia SLIGHT = 2-3 cells (100X) (0-2/hpf); Schistocytes SLIGHT = 2-5 cells (100X) (0-1/hpf); Target Cells SLIGHT = 2-5 cells (100X) (0-1/hpf); Tear Drops SLIGHT = 2-5 cells (100X) (0-1/hpf); Toxic Granulation SLIGHT
[2018-01-20 14:40] LABS: ALT (SGPT) 18 U/L (8-55); AST (SGOT) 21 U/L (5-34); Albumin 4.2 g/dL (3.5-5.0); Alkaline Phosphatase 135 U/L (40-150); Anion Gap 14 mmol/L (10-20); BUN (Urea Nitrogen) 9 mg/dL (8.9-20.6); Bilirubin, Total 0.3 mg/dL (0.2-1.2); CK (CPK) 214 U/L (30-200); Calc. Creatinine Clearance 0 mL/min (70-130); Calcium 9.5 mg/dL (7.8-10.44); Carbon Dioxide 25 mmol/L (22-29); Chloride 82 mmol/L (98-107); Estimated GFR-MDRD Greater than 90; Globulin 3.1 g/dL (2.4-3.5); Glucose 102 mg/dL (70-105); Potassium 3.6 mmol/L (3.5-5.1); Protein, Total 7.3 g/dL (6.0-8.3)
--- NOTE | 2018-01-20 14:46 | CT ---
CT HEAD NONCONTRAST: HISTORY: Right arm paresthesias. Nausea. Altered mental status. COMPARISON: 01/03/2018. FINDINGS: There is no evidence of acute intracranial hemorrhage or infarct. Ventricles appear normal in size, shape, and position. There is no mass effect or shift of midline structures. Small mucous retention cyst left maxillary sinus. IMPRESSION: No acute intracranial abnormalities are demonstrated. POS: MARJAN
[2018-01-20 14:47] LABS: Sodium 117 mmol/L (136-145)
[2018-01-20] MEDS ORDERED: Metoclopramide HCl 10 MG/2 ML VIAL ONE (14:47)
[2018-01-20] MEDS ORDERED: diphenhydrAMINE 50 MG/ML VIAL ONE (14:50)
--- NOTE | 2018-01-20 14:53 | RAD ---
PORTABLE FRONTAL CHEST RADIOGRAPH 01/20/2018. COMPARISON: 04/10/2017. HISTORY: Fever on chemotherapy. FINDINGS: There is a stable CT injectable right-sided Port-A-Cath, distal tip overlying the region of the right atrium. There is a mass in the right lower lobe measuring 2.8 cm in transverse dimension, enlarged when compared to the 04/10/2017 examination at which time it measured 2.2 cm. There is a probable fernanda tional nodule adjacent to this measuring approximately 1.1 cm, not discretely visualized on the prior exam. There was a nodule in the mid left lung on the 04/10/2017 examination which is not visualized o n this study. IMPRESSION: 1. Pulmonary nodules concerning for metastatic disease as detailed above. 2. No focal consolidation or alveolar edema. POS: MAYA
[2018-01-20] MEDS ORDERED: Ketorolac Tromethamine 30 MG/ML VIAL ONE (16:12)
[2018-01-20] MEDS ORDERED: Acetaminophen 325 MG TAB PO PRN (17:02)
[2018-01-20] MEDS ORDERED: Calcium Carbonate 500 MG ChewTAB PO PRN (17:02)
--- NOTE | 2018-01-20 17:14 | PDOC.FPRHP ---
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 Notably, he had similar symptoms his previous admission. He had a ct scan of his head which showed NAD. BMP showed severe hyponatremia at 117. His most recent hospitalization was for the same reason; however, his sodium was 120 on that admission. Overall, pt is a poor historian. He denies changes in vision, syncope , chest pain, sob, NVDC, seizure activity, abd pain, recent illness and fever and chills. ED Course: 1LNS, 30toradol, 10 reglan 25 beandryl - Allergies/Adverse Reactions Allergies Allergy/AdvReac Type Severity Reaction Status Date / Time No Known Drug Allergies Allergy Verified 08/21/17 08:28 gabapentin AdvReac Unknown Verified 08/21/17 08:28 - Home Medications Medication Instructions Recorded Confirmed Type Aspirin [Aspir-Low] 81 mg PO DAILY 08/21/17 01/20/18 History HYDROcodone/Acetaminophen [[place] 1 tablet PO Q4HR PRN 08/21/17 01/20/18 History 10-325 Tablet] Simvastatin 20 mg PO QPM 08/21/17 01/20/18 History metFORMIN [Glucophage] 500 mg PO BID-WM 01/04/18 01/20/18 History risperiDONE [RisperDAL] 0.5 mg PO BID 01/04/18 01/20/18 History Ferrous Sulfate [Feosol] 325 mg PO DAILY 01/20/18 01/20/18 History Sennosides [Senexon] 8.6 mg PO DAILY 01/20/18 01/20/18 History Hydrochlorothiazide 25 mg PO DAILY 01/21/18 01/21/18 History - History PMHx: HTN, metastatic spindle cell ca PSHx: Left AKA FHx:Maternal/Paternal HTN Social: 20 pack year history, denies alcohol and drug use - Review of Systems General: denies: fever/chills Eyes: denies: eye pain, vision changes ENT: denies: nasal congestion, rhinorrhea Respiratory: denies: cough, congestion, shortness of breath Cardiovascular: denies: chest pain, palpitation, orthopnea Gastrointestinal: denies: nausea, vomiting, diarrhea, constipation, abdominal pain Genitourinary: denies: incontinence, dysuria, polyuria, discharge Musculoskeletal: denies: pain, tenderness, stiffness Neurological: reports: numbness, weakness. denies: syncope, seizure - Vital signs BP: 105/61 HR: 75 RR: 18 Tmax: 98.9 Pox: 99% on RA Wt: 70Kg - Physical Exam Constitutional: NAD, awake, alert and oriented HEENT: normocephalic and atraumatic, PERRLA, EOMI, conjunctiva clear, no scleral icterus, grossly normal vision, MMM, oropharynx clear Neck: trachea midline, no LAD, no JVD Heart: RRR, normal S1/S2, no murmurs/rubs/gallops, pulses present, no edema Lungs: CTAB, no respiratory distress, good air movement, no rales/rhonchi, no wheezing, no retractions Abdomen: soft, non-tender, bowel sounds present Musculoskeletal: normal structure, ROM grossly normal, other (Left AKA) Neurological: CN II-XII intact, normal sensation, other -Neurological: 4/5 strength RUE throughout Skin: capillary refill <2 seconds Heme/Lymphatic: no unusual bruising or bleeding, no petechia Psychiatric: other (poor historian) FMR H&P: Results - Labs Result Diagrams: 01/21/18 00:35 01/21/18 09:11 Lab results: WBC 10.1 thou/uL (4.8-10.8) 01/20/18 13:59 Hgb 8.2 g/dL (14.0-18.0) L 01/20/18 13:59 Hct 25.6 % (42.0-52.0) L 01/20/18 13:59 MCV 77.3 fL (78.0-98.0) L 01/20/18 13:59 Plt Count 80 thou/uL (130-400) L 01/20/18 13:59 Band Neuts % (Manual) 29 % (5-11) H 01/20/18 13:59 Sodium 117 mmol/L (136-145) L* 01/20/18 13:59 Potassium 3.6 mmol/L (3.5-5.1) 01/20/18 13:59 Chloride 82 mmol/L (98-107) L 01/20/18 13:59 Carbon Dioxide 25 mmol/L (22-29) 01/20/18 13:59 BUN 9 mg/dL (8.9-20.6) 01/20/18 13:59 Creatinine 0.74 mg/dL (0.7-1.3) 01/20/18 13:59 Glucose 102 mg/dL (70-105) 01/20/18 13:59 Lactic Acid 1.2 mmol/L (0.5-2.2) 01/20/18 13:59 Calcium 9.5 mg/dL (7.8-10.44) 01/20/18 13:59 Total Bilirubin 0.3 mg/dL (0.2-1.2) 01/20/18 13:59 AST 21 U/L (5-34) 01/20/18 13:59 ALT 18 U/L (8-55) 01/20/18 13:59 Alkaline Phosphatase 135 U/L (40-150) 01/20/18 13:59 Creatine Kinase 214 U/L (30-200) H 01/20/18 13:59 Serum Total Protein 7.3 g/dL (6.0-8.3) 01/20/18 13:59 Albumin 4.2 g/dL (3.5-5.0) 01/20/18 13:59 Urine Ketones Trace mg/dL (Negative) H 01/20/18 14:05 Urine Blood Negative (Negative) 01/20/18 14:05 Urine Nitrite Negative (Negative) 01/20/18 14:05 Ur Leukocyte Esterase Negative (Negative) 01/20/18 14:05 - Radiology Interpretation Chest x-ray Status: report reviewed by me (metastesis, otherwise NAD) CT scan - head Status: report reviewed by me (NAD) FMR H&P: A/P - Problem List (1) Hypo-osmolar hyponatremia Current Visit: No Status: Acute Code(s): E87.1 - HYPO-OSMOLALITY AND HYPONATREMIA (2) Elevated CK Current Visit: No Status: Acute (3) HLD (hyperlipidemia) Current Visit: No Status: Chronic Code(s): E78.5 - HYPERLIPIDEMIA, UNSPECIFIED (4) HTN (hypertension) Current Visit: No Status: Chronic Code(s): I10 - ESSENTIAL (PRIMARY) HYPERTENSION (5) Spindle cell carcinoma Current Visit: No Status: Acute Code(s): C80.1 - MALIGNANT (PRIMARY) NEOPLASM, UNSPECIFIED - Plan 1) hypo-osmolar hyponatremia - possibly 2/2 poor PO solute intake (tea/toast syndrome) vs SIADH vs hypovolemia pt received 1LNS in ED - will check urine sodium, urine osmoles and serum osmoles - for now fluid restriction pending sodium studies to avoid rapid overcorrection , goal 8mEq/24hrs -BMP every 4 hours and trend sodium - will send for chemotherapy records at [facility] which may help identify cause of hyponatremia - check orthostatics 2) Elevated CK - mild, possibly related to volume depletion - sodium studies pending - consider IVF hydration and possibly repeat tomorrow 3) HTN: - hold home medications for now, cont to monitor pressures - no diuretics 4) HLD: - home meds 5) h/o spindle cell ca w/ mets - possibly contributing via ca induced SIADH or chemotherapeutic induced SIADH will request records from [facility] tomorrow and determine pts chemo regimen Dispo: Stable, will check sodium studies and adjust plan accordingly. Hold IVF for now pending studies. Check orthostatics. Disposition/LOS: stable, >/= 2 days FMR H&P: Upper Level - Plan Date/Time: 01/20/18 1711 I, [], have evaluated this patient and agree with findings/plan as outlined by architect internship resident. Pertinent changes/additions are listed here. Attending Addendum - Attending Addendum Date/Time: 01/21/18 1032 I personally evaluated the patient and discussed the management with Dr. Bansal on 01/20. I agree with and repeated the History, Examination, Assessment and Plan documented above with any addition or exceptions noted below. Mild headache. No vision changes. On exam 5/5 strength in flexors and extensors bilaterally. CN II-XII intact and symmetric on my exam. Etiology remains unclear. 2 atypical antipsychotics + chemo makes SIADH, as well as lung mets. Fluid restrict and refeed. Has previously tolerated > 8 meq /24h.
[2018-01-20 17:25] VITALS: BMI 23.8
[2018-01-20 17:42] LABS: Osmolality, Serum 243 mOsm/kg (280-295)
[2018-01-20] MEDS ORDERED: Aspirin/APAP/Caffeine Tab (Excedrin Migraine) PO SCH (17:45)
[2018-01-20] MEDS ORDERED: HYDROcodone/Acetaminophen 5/325 mg Tablet PO PRN (18:21)
[2018-01-20] MEDS: Ondansetron ODT 4 MG TAB PO PRN (20:20)
[2018-01-20] MEDS: traZODone HCl 50 MG TAB PO PRN (20:39)
[2018-01-20 20:44] LABS: Anion Gap 14 mmol/L (10-20); BUN (Urea Nitrogen) 11 mg/dL (8.9-20.6); Calc. Creatinine Clearance 112 mL/min (70-130); Calcium 9.2 mg/dL (7.8-10.44); Carbon Dioxide 25 mmol/L (22-29); Chloride 87 mmol/L (98-107); Estimated GFR-MDRD Greater than 90; Glucose 117 mg/dL (70-105); Potassium 3.4 mmol/L (3.5-5.1); Sodium 123 mmol/L (136-145)
[2018-01-20 23:35] LABS: Anion Gap 16 mmol/L (10-20); BUN (Urea Nitrogen) 12 mg/dL (8.9-20.6); Calc. Creatinine Clearance 111 mL/min (70-130); Calcium 9.2 mg/dL (7.8-10.44); Carbon Dioxide 22 mmol/L (22-29); Chloride 89 mmol/L (98-107); Estimated GFR-MDRD Greater than 90; Glucose 127 mg/dL (70-105); Potassium 3.9 mmol/L (3.5-5.1); Sodium 123 mmol/L (136-145)
[2018-01-21] MEDS ORDERED: diphenhydrAMINE 25 MG CAP PO PRN (00:04)
[2018-01-21] MEDS: HYDROcodone/Acetaminophen 5/325 mg Tablet PO PRN ×3 (00:21→20:30)
[2018-01-21 01:25] LABS: Anion Gap 14 mmol/L (10-20); BUN (Urea Nitrogen) 12 mg/dL (8.9-20.6); Calc. Creatinine Clearance 111 mL/min (70-130); Calcium 9.1 mg/dL (7.8-10.44); Carbon Dioxide 24 mmol/L (22-29); Chloride 89 mmol/L (98-107); Estimated GFR-MDRD Greater than 90; Glucose 100 mg/dL (70-105); Potassium 3.8 mmol/L (3.5-5.1); Sodium 123 mmol/L (136-145)
[2018-01-21 01:32] LABS: Band 13 % (5-11); Hemoglobin 7.7 g/dL (14.0-18.0); Hypochromia SLIGHT = 6-15 cells (100X) (0-5/hpf); Lymphocytes 16 % (21-51); MDiff Complete? YES; Mean Corpuscular HGB CONC 33.1 g/dL (32.0-36.0); Mean Corpuscular Hemoglobin 25.9 pg (27.0-31.0); Mean Corpuscular Volume 78.1 fL (78.0-98.0); Mean Platelet Volume 10.9 fL (7.4-10.4); Monocytes 4 % (0-10); Neutrophil 67 % (42-75); PLT Morphology Comment Appears Decreased; Platelet Count 67 thou/uL (130-400); RBC Distribution Width 14.9 % (11.5-14.5); Red Blood Cell (RBC) Count 2.99 mill/uL (4.70-6.10); White Blood Cell (WBC) Count 10.1 thou/uL (4.8-10.8)
[2018-01-21] MEDS: Ondansetron ODT 4 MG TAB PO PRN (05:28)
[2018-01-21 06:10] LABS: Anion Gap 12 mmol/L (10-20); BUN (Urea Nitrogen) 10 mg/dL (8.9-20.6); Calc. Creatinine Clearance 114 mL/min (70-130); Calcium 9.5 mg/dL (7.8-10.44); Carbon Dioxide 26 mmol/L (22-29); Chloride 91 mmol/L (98-107); Estimated GFR-MDRD Greater than 90; Glucose 100 mg/dL (70-105); Potassium 3.9 mmol/L (3.5-5.1); Sodium 125 mmol/L (136-145)
--- NOTE | 2018-01-21 08:39 | PDOC.FM ---
- Subjective Subjective: Annie overnight. Pt Na has trended up and nearly at goal of correction rate 10mEq/ 24hrs. Pt reports he is feeling better. No new complaints. - Objective MAR Reviewed: Yes Vital Signs & Weight: Vital Signs (12 hours) Temp Pulse Resp BP BP Pulse Ox 01/21/18 08:00 99.1 F 127 H 21 H 106/61 94 L 01/21/18 00:00 98.5 F 71 20 92/53 L 98 Weight Weight 69.218 kg Result Diagrams: 01/21/18 00:35 01/21/18 05:11 <Shabbir Bansal - Last Filed: 01/21/18 08:38> - Objective Vital Signs & Weight: Vital Signs (12 hours) Temp Pulse Resp BP BP Pulse Ox 01/21/18 08:00 99.1 F 127 H 21 H 106/61 98 01/21/18 00:00 98.5 F 71 20 92/53 L 98 Weight Weight 69.218 kg I&O: 01/20/18 01/21/18 01/22/18 06:59 06:59 06:59 Intake Total 240 Balance 240 Result Diagrams: 01/21/18 00:35 01/21/18 09:11 <Lucio Delaney - Last Filed: 01/21/18 10:51> Phys Exam - Physical Examination Constitutional: NAD HEENT: PERRLA, sclera anicteric Neck: no nodes, no JVD Respiratory: no wheezing, no rales, no rhonchi, clear to auscultation bilateral Cardiovascular: RRR, no significant murmur, no rub Gastrointestinal: soft, non-tender, no distention, positive bowel sounds Musculoskeletal: no edema, pulses present lt aka Neurological: non-focal Skin: no rash, cap refill <2 seconds <Shabbir Bansal - Last Filed: 01/21/18 08:38> Dx/Plan (1) Hypo-osmolar hyponatremia Code(s): E87.1 - HYPO-OSMOLALITY AND HYPONATREMIA Status: Acute (2) Elevated CK Status: Acute (3) HLD (hyperlipidemia) Code(s): E78.5 - HYPERLIPIDEMIA, UNSPECIFIED Status: Chronic (4) HTN (hypertension) Code(s): I10 - ESSENTIAL (PRIMARY) HYPERTENSION Status: Chronic (5) Spindle cell carcinoma Code(s): C80.1 - MALIGNANT (PRIMARY) NEOPLASM, UNSPECIFIED Status: Acute (6) Schizoaffective disorder Code(s): F25.9 - SCHIZOAFFECTIVE DISORDER, UNSPECIFIED Status: Chronic - Plan Plan: 1) hypo-osmolar hyponatremia - possibly 2/2 poor PO solute intake (tea/toast syndrome) vs hypovolemia vs SIADH pt received 1LNS in ED and Na continues to trend up. Pt advised to eat normal diet and we will cont q4 hr BMPs to monitor sodium. - urine osmoles showed hypoosmolar urine and normal urine Na. This was after 1LNS. - lift fluid restrictions and allow pt to eat freely. Cont to monitor Na every 4 hours. - will send for chemotherapy records at [facility] which may help identify cause of hyponatremia 2) Elevated CK - will cont to trend Na - if stable or worsening will give gentle IVF hydration with NS 3) HTN: - hold home medications for now, cont to monitor pressures - no diuretics 4) HLD: - home meds 5) h/o spindle cell ca w/ mets -request records from [facility]. Possibly contributing to hyponatremia 6) schizophrenia vs schizoaffective order - given home medications - will cont saphris and risperdol Dispo: stable, cont psychiatric medications. Trend BMP q4 hrs, strict Is/Os and consider fluid restriction after monitoring intake. <Shabbir Bansal - Last Filed: 01/21/18 08:38> (1) Hypo-osmolar hyponatremia Code(s): E87.1 - HYPO-OSMOLALITY AND HYPONATREMIA Status: Acute (2) Elevated CK Status: Acute (3) HLD (hyperlipidemia) Code(s): E78.5 - HYPERLIPIDEMIA, UNSPECIFIED Status: Chronic (4) HTN (hypertension) Code(s): I10 - ESSENTIAL (PRIMARY) HYPERTENSION Status: Chronic (5) Spindle cell carcinoma Code(s): C80.1 - MALIGNANT (PRIMARY) NEOPLASM, UNSPECIFIED Status: Acute <Lucio Delaney - Last Filed: 01/21/18 10:51> Attending Addendum - Attending Addendum Date/Time: 01/21/18 1049 I personally evaluated the patient and discussed the management with Dr. Bansal. I agree with and repeated the History, Examination, Assessment and Plan documented above with any addition or exceptions noted below. Patient with no change in symptoms. Has been irritable with nursing and reportedly threatened to throw his bedside urinal at them. He states he is depressed today and denies SI. On exam he remains with strength 5/5 when he exerts himself. CN II-XII remain intact and symmetric. 24h rise 8-12 I believe would be acceptable. I am hesitant to give desmopressin or start D5W, will monitor closely. <Lucio Delaney - Last Filed: 01/21/18 10:51>
[2018-01-21] MEDS ORDERED: Magnesium 2 GM/50 ML 2 GM in Premix Bag 1 BAG IVPB SCH (09:15)
[2018-01-21] MEDS: Ferrous Sulfate 325 MG TAB PO SCH (09:43)
[2018-01-21 09:44] LABS: Anion Gap 13 mmol/L (10-20); BUN (Urea Nitrogen) 9 mg/dL (8.9-20.6); Calc. Creatinine Clearance 102 mL/min (70-130); Calcium 9.5 mg/dL (7.8-10.44); Carbon Dioxide 26 mmol/L (22-29); Chloride 92 mmol/L (98-107); Estimated GFR-MDRD Greater than 90; Glucose 136 mg/dL (70-105); Potassium 3.9 mmol/L (3.5-5.1); Sodium 127 mmol/L (136-145)
[2018-01-21] MEDS: Senokot 8.6 MG TAB PO SCH ×2 (09:44→10:02)
[2018-01-21] MEDS: risperiDONE 0.25 MG TAB PO SCH ×2 (09:44→20:30)
[2018-01-21] MEDS: Aspirin 81 mg Enteric Coated Tablet PO SCH (09:44)
[2018-01-21] MEDS: Dextrose 5 %-0.45 % NaCl 1,000 ML IV SCH (13:11)
[2018-01-21 15:18] LABS: Anion Gap 12 mmol/L (10-20); BUN (Urea Nitrogen) 8 mg/dL (8.9-20.6); Calc. Creatinine Clearance 111 mL/min (70-130); Calcium 9.6 mg/dL (7.8-10.44); Carbon Dioxide 27 mmol/L (22-29); Chloride 93 mmol/L (98-107); Estimated GFR-MDRD Greater than 90; Glucose 119 mg/dL (70-105); Potassium 3.8 mmol/L (3.5-5.1); Sodium 128 mmol/L (136-145)
[2018-01-21] MEDS: metFORMIN 500 MG TAB PO SCH (16:59)
[2018-01-21 19:37] LABS: Anion Gap 13 mmol/L (10-20); BUN (Urea Nitrogen) 9 mg/dL (8.9-20.6); Calc. Creatinine Clearance 108 mL/min (70-130); Calcium 9.5 mg/dL (7.8-10.44); Carbon Dioxide 28 mmol/L (22-29); Chloride 96 mmol/L (98-107); Estimated GFR-MDRD Greater than 90; Glucose 101 mg/dL (70-105); Potassium 4.5 mmol/L (3.5-5.1); Sodium 132 mmol/L (136-145)
[2018-01-21] MEDS ORDERED: Atorvastatin Calcium 10 MG TAB PO SCH (21:00)
[2018-01-21] MEDS ORDERED: (Asenapine Maleate [Saphris] 10 MG) SL SCH (21:00)
[2018-01-21] MEDS: traZODone HCl 50 MG TAB PO PRN (21:20)
[2018-01-22] MEDS: Dextrose 5 %-0.45 % NaCl 1,000 ML IV SCH (03:47)
[2018-01-22 05:43] LABS: Anion Gap 10 mmol/L (10-20); BUN (Urea Nitrogen) 9 mg/dL (8.9-20.6); Calc. Creatinine Clearance 123 mL/min (70-130); Calcium 9.4 mg/dL (7.8-10.44); Carbon Dioxide 28 mmol/L (22-29); Chloride 98 mmol/L (98-107); Estimated GFR-MDRD Greater than 90; Glucose 99 mg/dL (70-105); Potassium 4.1 mmol/L (3.5-5.1); Sodium 132 mmol/L (136-145)
[2018-01-22 07:28] VITALS: BP 107/63; TEMP 99
[2018-01-22] MEDS: Ferrous Sulfate 325 MG TAB PO SCH (08:49)
[2018-01-22] MEDS: risperiDONE 0.25 MG TAB PO SCH (08:50)
[2018-01-22] MEDS: metFORMIN 500 MG TAB PO SCH (08:50)
[2018-01-22] MEDS: Aspirin 81 mg Enteric Coated Tablet PO SCH (08:51)
--- NOTE | 2018-01-22 08:54 | PDOC.FM ---
- Subjective Subjective: No acute events overnight. Pt reports his weakness has resolved and he is feeling much better. He reports he is ready to go home. Na has corrected approx 15mEqs in last 36 hours, discussed with pt plan to recheck Na @ 0900. Pt agreeable. - Objective Vital Signs & Weight: Vital Signs (12 hours) Temp Pulse Resp BP Pulse Ox 01/22/18 07:25 99.0 F 69 20 107/63 96 01/21/18 21:08 99.1 F 85 16 96/61 97 Weight Weight 69.218 kg I&O: 01/21/18 01/22/18 01/23/18 06:59 06:59 06:59 Intake Total 1860 800 Output Total 2575 1800 Balance -715 -1000 Result Diagrams: 01/21/18 00:35 01/22/18 04:42 <Shabbir Bansal - Last Filed: 01/22/18 08:52> - Objective Vital Signs & Weight: Vital Signs (12 hours) Temp Pulse Resp BP Pulse Ox 01/22/18 07:25 99.0 F 69 20 107/63 96 Weight Weight 69.218 kg I&O: 01/21/18 01/22/18 01/23/18 06:59 06:59 06:59 Intake Total 1860 800 Output Total 2575 1800 Balance -715 -1000 Result Diagrams: 01/22/18 09:09 01/22/18 09:09 <Lucio Delaney - Last Filed: 01/22/18 13:19> Phys Exam - Physical Examination Constitutional: NAD HEENT: PERRLA, sclera anicteric Respiratory: no wheezing, no rales, no rhonchi, clear to auscultation bilateral Cardiovascular: RRR, no significant murmur, no rub Gastrointestinal: non-tender, no distention, positive bowel sounds Musculoskeletal: no edema, pulses present Lt AKA Neurological: non-focal, moves all 4 limbs <Shabbir Bansal - Last Filed: 01/22/18 08:52> Dx/Plan (1) Hypo-osmolar hyponatremia Code(s): E87.1 - HYPO-OSMOLALITY AND HYPONATREMIA Status: Acute (2) Elevated CK Status: Acute (3) HLD (hyperlipidemia) Code(s): E78.5 - HYPERLIPIDEMIA, UNSPECIFIED Status: Chronic (4) HTN (hypertension) Code(s): I10 - ESSENTIAL (PRIMARY) HYPERTENSION Status: Chronic (5) Spindle cell carcinoma Code(s): C80.1 - MALIGNANT (PRIMARY) NEOPLASM, UNSPECIFIED Status: Acute (6) Schizoaffective disorder Code(s): F25.9 - SCHIZOAFFECTIVE DISORDER, UNSPECIFIED Status: Chronic - Plan Plan: 1) hypo-osmolar hyponatremia - possibly 2/2 poor PO solute intake (tea/toast syndrome) vs hypovolemia vs SIADH pt received 1LNS in ED and Na continues to trend up. Pt advised to eat normal diet and we will cont q4 hr BMPs to monitor sodium. -started D5 1/2 NS yestrday to slow rate of correction, currently pts rate of correction is acceptable - will stop IVF - recheck BMP @ 0900 and if Na has normalized likley DC to home today 2) Elevated CK - received D5 1/2 NS and 1 L NS - resolved 3) HTN: - no diretics - cotnt to monitor pressures - dc with home meds 4) HLD: - home meds 5) h/o spindle cell ca w/ mets -likley a contributing factor in recurrent hyponatremia - hopefully pt corrects today and can be Dc'd home this afternoon 6) schizophrenia vs schizoaffective order - given home medications - will cont saphris and risperdol Dispo: stable, cont psychiatric medications. Repeat BMP @ 0900 and if Na has normalized likley DC to home this afternoon. Fluids stopped and recommend normal diet and monitor fluid intake. <Shabbir Bansal - Last Filed: 01/22/18 08:52> (1) Hypo-osmolar hyponatremia Code(s): E87.1 - HYPO-OSMOLALITY AND HYPONATREMIA Status: Acute (2) Elevated CK Status: Acute (3) HLD (hyperlipidemia) Code(s): E78.5 - HYPERLIPIDEMIA, UNSPECIFIED Status: Chronic (4) HTN (hypertension) Code(s): I10 - ESSENTIAL (PRIMARY) HYPERTENSION Status: Chronic (5) Spindle cell carcinoma Code(s): C80.1 - MALIGNANT (PRIMARY) NEOPLASM, UNSPECIFIED Status: Acute <Lucio Delaney - Last Filed: 01/22/18 13:19> Attending Addendum - Attending Addendum Date/Time: 01/22/18 1318 I personally evaluated the patient and discussed the management with Dr. Bansal. I agree with the History, Examination, Assessment and Plan documented above with any addition or exceptions noted below. reassuring RAR and correction with no significant changes. I suspect he has multifactorial reasons for his hyponatremia. Likely d/c today pending 1 pm labs. <Lucio Delaney - Last Filed: 01/22/18 13:19>
[2018-01-22] MEDS ORDERED: Multivit, Therapeutic 1 TAB PO SCH (09:00)
[2018-01-22] MEDS: Senokot 8.6 MG TAB PO SCH (09:01)
[2018-01-22 09:23] LABS: Hemoglobin 8.2 g/dL (14.0-18.0); Mean Corpuscular Hemoglobin 25.4 pg (27.0-31.0); Mean Corpuscular Volume 79.4 fL (78.0-98.0); Mean Platelet Volume 9.8 fL (7.4-10.4); Platelet Count 96 thou/uL (130-400); RBC Distribution Width 15.5 % (11.5-14.5); Red Blood Cell (RBC) Count 3.22 mill/uL (4.70-6.10); White Blood Cell (WBC) Count 18.8 thou/uL (4.8-10.8)
[2018-01-22 09:46] LABS: Anion Gap 10 mmol/L (10-20); BUN (Urea Nitrogen) 7 mg/dL (8.9-20.6); Calc. Creatinine Clearance 118 mL/min (70-130); Calcium 9.6 mg/dL (7.8-10.44); Carbon Dioxide 29 mmol/L (22-29); Chloride 97 mmol/L (98-107); Estimated GFR-MDRD Greater than 90; Glucose 93 mg/dL (70-105); Potassium 4.4 mmol/L (3.5-5.1); Sodium 132 mmol/L (136-145)
[2018-01-22 09:56] LABS: Band 37 % (5-11); Bite Cells SLIGHT = 2-5 cells (100X) (0-1/hpf); Hypochromia SLIGHT = 6-15 cells (100X) (0-5/hpf); Lymphocytes 15 % (21-51); MDiff Complete? YES; Macrocytosis SLIGHT = 6-15 cells (100X) (0-5/hpf); Metamyelocyte 4 % (0-0); Monocytes 12 % (0-10); Myelocyte 6 % (0-0); Neutrophil 25 % (42-75); PLT Morphology Comment Appears Decreased; Polychromasia SLIGHT = 2-3 cells (100X) (0-2/hpf); Reactive Lymphocytes 1 % (0-10); Toxic Granulation MODERATE
[2018-01-22 13:57] LABS: Anion Gap 12 mmol/L (10-20); BUN (Urea Nitrogen) 7 mg/dL (8.9-20.6); Calc. Creatinine Clearance 125 mL/min (70-130); Calcium 9.7 mg/dL (7.8-10.44); Carbon Dioxide 25 mmol/L (22-29); Chloride 98 mmol/L (98-107); Estimated GFR-MDRD Greater than 90; Glucose 91 mg/dL (70-105); Potassium 4.3 mmol/L (3.5-5.1); Sodium 131 mmol/L (136-145)
--- NOTE | 2018-01-23 13:48 | EKG ---
Test Reason : Blood Pressure : / mmHG Vent. Rate : 077 BPM Atrial Rate : 077 BPM P-R Int : 192 ms QRS Dur : 106 ms QT Int : 424 ms P-R-T Axes : 056 068 058 degrees QTc Int : 479 ms Normal sinus rhythm Normal ECG Confirmed by VERENICE PATEL ([id number]), editor sound LORI CARNES ([id number]) on 01/23/2018 1:47:54 PM Referred By: Confirmed By:VERENICE PATEL
--- NOTE | 2018-01-27 06:56 | PQF ---
THOMAS BANERJEE NICHOLAS *lang [id number] CLINICAL DOCUMENTATION CLARIFICATION FORM: POST DISCHARGE Addendum to original discharge summary date: ____ Late entry note date: __ DATE: 01/25/2018 ATTN: DR. YARBROUGH,BRANDO / DR. HELM Please exercise your independent, professional judgment in responding to the clarification form. Clinical indicators are provided on the bottom of this form for your review Please check appropriate box(s): [ ] Hyponatremia please specify etiology, if known [ ] Hyponatremia due to SIADH (Syndrome of Inappropriate Secretion of Antidiuretic Hormone) [ ] Hyponatremia due to Chemotherapy [ ] Other diagnosis: psychogenic polydipsia (after I was off service he was found drinking from bathroom faucet per verbal report from a resident) [ ] Unable to determine In addition, please specify: Present on Admission (POA): [ ] Yes [ ] No [ ] Unable to determine CLINICAL INDICATORS - SIGNS / SYMPTOMS / LABS: Na level - 01/20-117 01/20 H&P - Chemo for spindel cell carcinoma SIADH or chemotherpeutic induced SIADH Hyponatremia vs SIADH RISK FACTORS: Spindle cell carcinoma Elevated CK HTN TREATMENTS: IV fluids Series of electrolyte labs Monitor sodium Fluid restriction (This form is maintained as a part of the permanent medical record) 2014 [employer], [employer]. All Rights Reserved Sophia Bennett, JAY, [email or web address] [email or web address] [phone] [email or web address]
== END 2018-01-22 15:40 | disposition home or self-care (01) | DRG 641 ==
LOC: ERS 12:35 → T4-A 16:05
PROVIDERS: ADMIT Emergency Medicine; ATTEND Emergency Medicine
DX: E87.1 Hypo-osmolality and hyponatremia (principal); C49.9 Malignant neoplasm of connective and soft tissue, unspecified; C78.00 Secondary malignant neoplasm of unspecified lung; E78.5 Hyperlipidemia, unspecified; I10 Essential (primary) hypertension; F25.9 Schizoaffective disorder, unspecified; Z89.612 Acquired absence of left leg above knee; F17.210 Nicotine dependence, cigarettes, uncomplicated
CPT/HCPCS: 36415; 36416; 70450; 71045; 80048; 80053; 81003; 82550; 83605; 83735; 83930; 83935; 84300; 84484; 85025; 87086; 93005; 93010; 96365; 96366; 96375; J1200; J1885; J2765; Q0162

== ENCOUNTER 2018-01-22 20:43 | Observation (INO) | payer OTHER ==
[2018-01-22 21:16] LABS: Hemoglobin 7.6 g/dL (14.0-18.0); Mean Corpuscular HGB CONC 30.8 g/dL (32.0-36.0); Mean Corpuscular Hemoglobin 24.3 pg (27.0-31.0); Mean Corpuscular Volume 78.8 fL (78.0-98.0); Mean Platelet Volume 10.2 fL (7.4-10.4); Platelet Count 110 thou/uL (130-400); RBC Distribution Width 15.5 % (11.5-14.5); Red Blood Cell (RBC) Count 3.11 mill/uL (4.70-6.10); White Blood Cell (WBC) Count 21.2 thou/uL (4.8-10.8)
[2018-01-22 21:30] LABS: Band 12 % (5-11); Hypochromia SLIGHT = 6-15 cells (100X) (0-5/hpf); Lymphocytes 9 % (21-51); MDiff Complete? YES; Monocytes 4 % (0-10); Neutrophil 75 % (42-75); Nucleated RBC 1 % (0); PLT Morphology Comment Appears Decreased; Polychromasia SLIGHT = 2-3 cells (100X) (0-2/hpf); Target Cells SLIGHT = 2-5 cells (100X) (0-1/hpf)
--- NOTE | 2018-01-22 21:30 | CT ---
CT HEAD WITHOUT CONTRAST: 01/22/18 Multiple axial tomograms are obtained through the head without IV enhancement. INDICATIONS: Right side weakness. Ventricles have normal size and position. No evidence of intracranial mass or hemorrhage. No evidence of cortical infarct. Sinuses and mastoids are clear. IMPRESSION: No acute process identified. POS: [facility]
[2018-01-22 21:38] LABS: ALT (SGPT) 17 U/L (8-55); AST (SGOT) 21 U/L (5-34); Albumin 3.8 g/dL (3.5-5.0); Alkaline Phosphatase 120 U/L (40-150); Anion Gap 8 mmol/L (10-20); BUN (Urea Nitrogen) 8 mg/dL (8.9-20.6); Bilirubin, Total 0.2 mg/dL (0.2-1.2); CK (CPK) 251 U/L (30-200); Calc. Creatinine Clearance 0 mL/min (70-130); Calcium 9.1 mg/dL (7.8-10.44); Carbon Dioxide 28 mmol/L (22-29); Chloride 92 mmol/L (98-107); Estimated GFR-MDRD Greater than 90; Globulin 2.7 g/dL (2.4-3.5); Glucose 107 mg/dL (70-105); Potassium 3.7 mmol/L (3.5-5.1); Protein, Total 6.5 g/dL (6.0-8.3); Sodium 124 mmol/L (136-145)
[2018-01-22 21:52] LABS: Bilirubin Negative (Negative); Blood, Urine Negative (Negative); Clarity CLEAR (Clear); Glucose, Urine (Dipstick) Negative (Negative); Leukocyte Negative (Negative); Nitrite Negative (Negative); Protein, Urine (Dipstick) Negative (Neg-Trace); Specific Gravity, Urine 1.001 (1.002-1.036); Urobilinogen 0.2 mg/dL (0.2-1.0)
[2018-01-22 22:00] LABS: Medtox Reader # READER 4
[2018-01-22 22:01] LABS: Amphetamine Not Detected (NotDetected); Barbiturates Screen Not Detected (NotDetected); Benzodiazepine Screen Not Detected (NotDetected); Cocaine Metabolite Screen Not Detected (NotDetected); Medtox Control Line Valid? VALID (VALID); Methadone Not Detected (NotDetected); Methamphetamine Not Detected (NotDetected); Opiate Screen Not Detected (NotDetected); Oxycodone Screen Not Detected (NotDetected); Phencyclidine (PCP) Not Detected (NotDetected); THC/Cannabinoid Screen Not Detected (NotDetected); Tricyclic Screen Not Detected (NotDetected)
--- NOTE | 2018-01-22 22:38 | PDOC.FPRHP ---
- History of Present Illness Chief Complaint: weakness on R side History of Present Illness: 47 yo M w/ PMH of metastatic spindle cell ca and chronic hyponatremia presents to ED for complaint of rt sided paresthesias, weakness and headache. Was discharged this AM. Also had similar initial symptoms his previous admission. He had a ct scan today in ED of his head which showed no acute abnormality as have the one recently 3d ago. Since discharge, his Na dropped 6pts. He states left and ate soup before coming to the ED. Now states his symptoms have resolved except for a frontal headache. Additionally, his WBC have rapidly increased from 10 yesterday ro 21 in ED. He denies fever, dysuria, cough, rhinorrhea, changes in vision, syncope, chest pain, sob, NVDC, seizure activity , abd pain, recent illness and chills. Of note, Mr Dodd is homeless at the moment and unable to afford medication prescriptions. ED Course: CT head Negative in ED. - Allergies/Adverse Reactions Allergies Allergy/AdvReac Type Severity Reaction Status Date / Time No Known Drug Allergies Allergy Verified 08/21/17 08:28 gabapentin AdvReac Unknown Verified 08/21/17 08:28 - Home Medications Medication Instructions Recorded Confirmed Type Aspirin [Aspir-Low] 81 mg PO DAILY 08/21/17 01/20/18 History HYDROcodone/Acetaminophen [[place] 1 tablet PO Q4HR PRN 08/21/17 01/20/18 History 10-325 Tablet] Simvastatin 20 mg PO QPM 08/21/17 01/20/18 History metFORMIN [Glucophage] 500 mg PO BID-WM 01/04/18 01/20/18 History risperiDONE [RisperDAL] 0.5 mg PO BID 01/04/18 01/20/18 History Ferrous Sulfate [Feosol] 325 mg PO DAILY 01/20/18 01/20/18 History Sennosides [Senexon] 8.6 mg PO DAILY 01/20/18 01/20/18 History - History PMHx: schizophrenia, sarcoma, DM2, hyponatremia PSHx: n/a FHx:n/a Social: no tobacco, ETOH, IVDU - Review of Systems General: denies: fever/chills, weight/appetite/sleep changes, night sweats, fatigue Eyes: denies: eye pain, vision changes ENT: denies: nasal congestion, rhinorrhea Respiratory: denies: cough, congestion, shortness of breath, exercise intolerance Cardiovascular: denies: chest pain, palpitation, edema, paroxysmal nocturnal dyspnea Gastrointestinal: denies: nausea, vomiting, diarrhea, constipation Genitourinary: denies: dysuria, polyuria Skin: denies: rashes, lesions, jaundice Musculoskeletal: denies: pain, tenderness, swelling Neurological: reports: numbness, weakness, other (MONGE). denies: syncope, seizure Psychological: denies: anxiety, depression - Vital signs BP: [] HR: [] RR: [] Tmax: [] Pox: []% on [] Wt: [] - Physical Exam Constitutional: awake, alert and oriented, well developed HEENT: normocephalic and atraumatic, PERRLA, EOMI, conjunctiva clear, no scleral icterus, grossly normal vision, grossly normal hearing, MMM, oropharynx clear, good dention Neck: supple Chest: no-tender to palpation, no lesions Heart: RRR, normal S1/S2, no murmurs/rubs/gallops, pulses present, no edema Lungs: CTAB, no respiratory distress, good air movement, no rales/rhonchi, no wheezing Abdomen: bowel sounds present Musculoskeletal: normal structure, normal tone, other (L BKA) Neurological: no focal deficit, CN II-XII intact, normal sensation, DTRs 2+, other (no meningeal signs, no neck stiffness or pain with movement.) Skin: no rash/lesions, good turgor, capillary refill <2 seconds, no jaundice, other (R foot exam w/o lesions) Heme/Lymphatic: no unusual bruising or bleeding, no purpura, no petechia, no LAD Psychiatric: normal mood and affect, good judgment and insight FMR H&P: Results - Labs Result Diagrams: 01/22/18 21:03 01/22/18 21:03 Lab results: WBC 21.2 thou/uL (4.8-10.8) H 01/22/18 21:03 Hgb 7.6 g/dL (14.0-18.0) L 01/22/18 21: Hct 24.6 % (42.0-52.0) L 01/22/18 21:03 MCV 78.8 fL (78.0-98.0) 01/22/18 21:03 Plt Count 110 thou/uL (130-400) L 01/22/18 21:03 Band Neuts % (Manual) 12 % (5-11) H 01/22/18 21:03 Sodium 124 mmol/L (136-145) L 01/22/18 21:03 Potassium 3.7 mmol/L (3.5-5.1) 01/22/18 21:03 Chloride 92 mmol/L (98-107) L 01/22/18 21:03 Carbon Dioxide 28 mmol/L (22-29) 01/22/18 21:03 BUN 8 mg/dL (8.9-20.6) L 01/22/18 21:03 Creatinine 0.66 mg/dL (0.7-1.3) L 01/22/18 21:03 Glucose 107 mg/dL (70-105) H 01/22/18 21:03 Calcium 9.1 mg/dL (7.8-10.44) 01/22/18 21:03 Total Bilirubin 0.2 mg/dL (0.2-1.2) 01/22/18 21:03 AST 21 U/L (5-34) 01/22/18 21:03 ALT 17 U/L (8-55) 01/22/18 21:03 Alkaline Phosphatase 120 U/L (40-150) 01/22/18 21:03 Creatine Kinase 251 U/L (30-200) H 01/22/18 21:03 Serum Total Protein 6.5 g/dL (6.0-8.3) 01/22/18 21:03 Albumin 3.8 g/dL (3.5-5.0) 01/22/18 21:03 Urine Ketones Negative mg/dL (Negative) 01/22/18 21:45 Urine Blood Negative (Negative) 01/22/18 21:45 Urine Nitrite Negative (Negative) 01/22/18 21:45 Ur Leukocyte Esterase Negative (Negative) 01/22/18 21:45 - Radiology Interpretation CT scan - head Status: report reviewed by me (no acute abnormalities) FMR H&P: A/P - Problem List (1) TIA (transient ischemic attack) Current Visit: Yes Status: Acute Code(s): G45.9 - TRANSIENT CEREBRAL ISCHEMIC ATTACK, UNSPECIFIED (2) Chronic hyponatremia Current Visit: Yes Status: Acute Code(s): E87.1 - HYPO-OSMOLALITY AND HYPONATREMIA (3) Elevated CK Current Visit: Yes Status: Acute (4) Hypo-osmolar hyponatremia Current Visit: Yes Status: Acute Code(s): E87.1 - HYPO-OSMOLALITY AND HYPONATREMIA (5) DM2 (diabetes mellitus, type 2) Current Visit: Yes Status: Chronic (6) HLD (hyperlipidemia) Current Visit: Yes Status: Chronic Code(s): E78.5 - HYPERLIPIDEMIA, UNSPECIFIED (7) HTN (hypertension) Current Visit: Yes Status: Chronic Code(s): I10 - ESSENTIAL (PRIMARY) HYPERTENSION (8) Schizoaffective disorder Current Visit: Yes Status: Chronic Code(s): F25.9 - SCHIZOAFFECTIVE DISORDER , UNSPECIFIED - Plan 1) TIA - CT head negative with resolved symptoms and normal NIH stroke scale. Continue his home dose of Statin and ASA. Observe overnight. ETOH negative. 2) Hypo-osmolar hyponatremia - Unknown cause, but dropped in only a few hours being out of the hospital. Will place him on gentle NS through the night and recheck in ~4 hours. Consider tea and toast diet vs SIADH, but urine NA WNL. Will need fluid restriction home diet. 2) Elevated CK - Will give gentle IVF today. Possibly elevated 2/2 cancer 3) HTN: No acute issues, continue to monitor pressures 4) HLD: continue home statin 5) Hx/o Spindle cell ca w/ mets, Possibly contributing to hyponatremia 6) schizophrenia vs schizoaffective order - given home Risperidone - will cont saphris and risperdol
[2018-01-23] MEDS ORDERED: Senokot S 8.6-50 MG TAB PO PRN (01:14)
[2018-01-23] MEDS ORDERED: Ondansetron ODT 4 MG TAB PO PRN (01:14)
[2018-01-23] MEDS ORDERED: traZODone HCl 50 MG TAB PO PRN ×2 (01:14→20:55)
[2018-01-23] MEDS ORDERED: Sodium Chloride 0.9% 1,000 ML IV SCH (01:14)
[2018-01-23 01:20] VITALS: BMI 21.4
[2018-01-23] MEDS: Acetaminophen 325 MG TAB PO PRN ×3 (01:40→15:38)
[2018-01-23] MEDS ORDERED: risperiDONE 3 MG TAB PO SCH ×2 (02:15→21:00)
[2018-01-23] MEDS: diphenhydrAMINE 50 MG CAP PO PRN ×2 (02:32→21:21)
[2018-01-23 04:58] LABS: Anion Gap 10 mmol/L (10-20); BUN (Urea Nitrogen) 7 mg/dL (8.9-20.6); Calc. Creatinine Clearance 133 mL/min (70-130); Calcium 9.2 mg/dL (7.8-10.44); Carbon Dioxide 26 mmol/L (22-29); Chloride 95 mmol/L (98-107); Estimated GFR-MDRD Greater than 90; Glucose 91 mg/dL (70-105); Sodium 127 mmol/L (136-145)
[2018-01-23 05:22] LABS: Band 27 % (5-11); Eosinophils 1 % (0-10); Hemoglobin 7.7 g/dL (14.0-18.0); Lymphocytes 10 % (21-51); MDiff Complete? YES; Mean Corpuscular HGB CONC 32.2 g/dL (32.0-36.0); Mean Corpuscular Hemoglobin 25.4 pg (27.0-31.0); Mean Platelet Volume 10.2 fL (7.4-10.4); Metamyelocyte 3 % (0-0); Monocytes 13 % (0-10); Myelocyte 1 % (0-0); Neutrophil 43 % (42-75); Platelet Count 112 thou/uL (130-400); RBC Distribution Width 15.7 % (11.5-14.5); RBC Morphology Normal; Reactive Lymphocytes 2 % (0-10); Red Blood Cell (RBC) Count 3.04 mill/uL (4.70-6.10); White Blood Cell (WBC) Count 21.5 thou/uL (4.8-10.8)
--- NOTE | 2018-01-23 06:54 | PDOC.FM ---
- Subjective Subjective: Pt reports feeling "ok" this AM though unchanged from presentation to ER. Continued paresthesia and headache. No other complaints at this time. No fever/chills, no cough no sob - Objective MAR Reviewed: Yes Vital Signs & Weight: Vital Signs (12 hours) Temp Pulse Resp BP Pulse Ox 01/23/18 04:22 97.2 F L 73 20 96/62 97 01/23/18 00:20 99.2 F 74 20 120/74 97 Weight Weight 71.713 kg Result Diagrams: 01/23/18 04:37 01/23/18 04:37 Phys Exam - Physical Examination Constitutional: NAD HEENT: moist MMs, sclera anicteric Neck: no JVD, supple Respiratory: no wheezing, clear to auscultation bilateral Cardiovascular: RRR, no significant murmur Gastrointestinal: soft, non-tender Musculoskeletal: no edema, pulses present Neurological: moves all 4 limbs RUE paresthesia Psychiatric: A&O x 3 Deviation from normal: flat affect Skin: no rash, normal turgor Dx/Plan (1) Chronic hyponatremia Code(s): E87.1 - HYPO-OSMOLALITY AND HYPONATREMIA Status: Acute (2) Elevated CK Status: Acute (3) Hypo-osmolar hyponatremia Code(s): E87.1 - HYPO-OSMOLALITY AND HYPONATREMIA Status: Acute (4) HLD (hyperlipidemia) Code(s): E78.5 - HYPERLIPIDEMIA, UNSPECIFIED Status: Chronic (5) HTN (hypertension) Code(s): I10 - ESSENTIAL (PRIMARY) HYPERTENSION Status: Chronic (6) Schizoaffective disorder Code(s): F25.9 - SCHIZOAFFECTIVE DISORDER, UNSPECIFIED Status: Chronic - Plan Plan: Hypo-osmolar hyponatremia A- Unknown cause, but dropped in only a few hours being out of the hospital. Hyponatremia studies were done on previous admission and were inconclusive. Consider tea and toast diet vs SIADH, but urine NA WNL. Will need fluid restriction home diet. P- continue IVF - will consult nephro today - will request records from [facility] TIA vs. sequela of hypnatremia A- more likely 2/[address] hyponatremia. CT head negative with resolved symptoms and normal NIH stroke scale P- Continue his home dose of Statin and ASA - will monitor neuro symptoms - ETOH negative. Elevated CK A- Possibly elevated 2/2 cancer P- Will give gentle IVF today HTN -No acute issues, continue to monitor pressures HLD -continue home statin DM -home meds Hx/o Spindle cell ca w/ mets -Possibly contributing to hyponatremia Schizophrenia vs schizoaffective order - given home Risperidone - will cont risperdol
[2018-01-23] MEDS: Enoxaparin Sodium 30 MG/0.3 ML SYRINGE SC SCH (08:50)
[2018-01-23] MEDS: metFORMIN 500 MG TAB PO SCH ×2 (08:50→17:40)
[2018-01-23] MEDS: Ferrous Sulfate 325 MG TAB PO SCH (08:50)
[2018-01-23] MEDS: Aspirin 81 mg Enteric Coated Tablet PO SCH (08:50)
[2018-01-23] MEDS ORDERED: risperiDONE 0.25 MG TAB PO SCH (09:00)
--- NOTE | 2018-01-23 09:26 | RAD ---
RADIOGRAPH CHEST 1 VIEW: DATE: 01/23/18 TIME: 0813 hours HISTORY: 47-year-old male with leukocytosis. COMPARISON: 01/20/18. FINDINGS: There are no air space densities, pulmonary edema, pneumothorax, or cardiomegaly. The lateral costop hrenic angles are sharp. There is a round, well circumscribed, approximately 3 cm mass overlying the right lower lung zone. Sl ightly inferior and medial to that, there is a much smaller, round, approximately 1.2 cm pulmonary no dule. There is a right-sided implantable vascular access port with distal tip at the SVC/right atrial junction. There is no interval change overall. IMPRESSION: 1. No acute cardiopulmonary findings. 2. Right lower lung zone pulmonary nodule and pulmonary mass. 3. Right-sided implantable vascular access port. montserrat [] POS: [facility]
[2018-01-23 14:23] LABS: Osmolality, Urine 172 mOsm/kg (300-900)
[2018-01-23 14:33] LABS: Sodium, Urine 33 mmol/L (Not Available)
[2018-01-23 15:18] LABS: Anion Gap 15 mmol/L (10-20); BUN (Urea Nitrogen) 7 mg/dL (8.9-20.6); Calc. Creatinine Clearance 111 mL/min (70-130); Calcium 9.5 mg/dL (7.8-10.44); Carbon Dioxide 22 mmol/L (22-29); Chloride 96 mmol/L (98-107); Estimated GFR-MDRD Greater than 90; Glucose 110 mg/dL (70-105); Potassium 4.3 mmol/L (3.5-5.1); Sodium 129 mmol/L (136-145)
[2018-01-23] MEDS ORDERED: Ibuprofen 600 MG TAB PO PRN (15:44)
--- NOTE | 2018-01-23 20:57 | PDOC.EVN ---
Event Note - Event Note Event Note: Nurse called and stated patient's pill bottles ( dated december 2017) state that he takes trazodone 100 mg qhs PRN and risperidone 3 mg PO qhs. Updated patients medication order list to reflect this.
[2018-01-23] MEDS ORDERED: Simvastatin 20 MG TAB PO SCH (21:00)
--- NOTE | 2018-01-24 00:57 | CON ---
DATE OF CONSULTATION: CONSULTING PHYSICIAN: Kadeem Hummel MD REQUESTING PHYSICIAN: Dr. Wan with [facility]. REASON FOR CONSULTATION: Hyponatremia. IMPRESSION: Hyponatremia. This is likely in the context of dilutional of hyponatremia from excessive free water intake. Another possibility is poor p.o. osmolar intake, going by the urine chemistry this is not SAIDH. PLAN: 1. Increase p.o. osmolar intake in the way of increased protein and animal meat. 2. Counseled on the need to avoid excessive free water intake. 3. Further management will be dependent on the clinical course. HISTORY OF PRESENT ILLNESS: This is a 47-year-old gentleman who was recently treated and got discharged. During the hospitalization, the patient noted to be hyponatremic and was able to be discharged with sodium of above 130. The patient re-presented with a sodium of 124, as a result of this, decision was taken to involve [facility] in the management of this case. The patient claims to be eating okay. Occasionally, he claims to drink quite a bit of water. In any case, the patient's urine chemistry is earlier suggestive of either poor p.o. osmolar intake or excessive free water intake. PAST MEDICAL HISTORY: Significant for schizophrenia, sarcoma, type 2 diabetes, hyponatremia. MEDICATIONS: Reviewed and as documented on [facility]. ALLERGIES: NO KNOWN DRUG ALLERGIES. FAMILY HISTORY: Nonsignificant related to present illness. SOCIAL HISTORY: No alcohol, no tobacco, no illicit drug use. The patient seems to be homeless at this point. PHYSICAL EXAMINATION: GENERAL: The patient was found not to be in any obvious distress. VITAL SIGNS: Noted with following vital signs; afebrile, temperature 98.1, pulse 76, respiratory rate of 16, O2 saturation 100% with a blood pressure 111/65. HEENT: Unremarkable. Moist oral mucosa. NECK: Supple. No conjunctival injection or icterus. CARDIOVASCULAR SYSTEM: First and second heart sounds were heard. RESPIRATORY SYSTEM: Clear to auscultation. DIGESTIVE SYSTEM: Revealed a benign abdominal with positive bowel sounds. EXTREMITIES: No peripheral edema. SKIN: No new gross rash. LYMPHATICS: No peripheral lymphadenopathy. SUMMARY: A 47-year-old gentleman with schizophrenia, who presented here with hyponatremia which I do think is likely dilutional hyponatremia. Other possibilities may include poor osmolar intake, but in this situation is likely dilutional hyponatremia. Thank you for this consultation. We will follow with you. Job ID: [id number]
[2018-01-24] MEDS: Acetaminophen 325 MG TAB PO PRN ×2 (03:34→10:51)
[2018-01-24] MEDS ORDERED: Polyethylene Glycol 3350 17 GM Packet PO SCH (04:30)
--- NOTE | 2018-01-24 06:41 | PDOC.FM ---
- Subjective Subjective: Pt reports feeling well, with some improvement of paresthesia. Reports it is now intermittent. no other complaints at this time Denies cp/palpitations, no sob no cough - Objective MAR Reviewed: Yes Vital Signs & Weight: Vital Signs (12 hours) Temp Pulse Resp BP Pulse Ox 01/24/18 03:22 100 F H 79 20 97/56 L 98 01/23/18 23:37 98 F 82 20 92/54 L 97 01/23/18 19:25 98.4 F 85 20 102/62 100 Weight Weight 71.713 kg I&O: 01/22/18 01/23/18 01/24/18 06:59 06:59 06:59 Intake Total 525 Output Total 1200 Balance -675 Result Diagrams: 01/23/18 04:37 01/24/18 07:07 Phys Exam - Physical Examination Constitutional: NAD HEENT: moist MMs, sclera anicteric Neck: no JVD, supple Respiratory: no wheezing, clear to auscultation bilateral Cardiovascular: RRR, no significant murmur Gastrointestinal: soft, non-tender Musculoskeletal: no edema, pulses present Neurological: non-focal moves all 3 limbs Psychiatric: normal affect, A&O x 3 Skin: no rash, normal turgor Dx/Plan (1) Chronic hyponatremia Code(s): E87.1 - HYPO-OSMOLALITY AND HYPONATREMIA Status: Acute (2) Elevated CK Status: Acute (3) Hypo-osmolar hyponatremia Code(s): E87.1 - HYPO-OSMOLALITY AND HYPONATREMIA Status: Acute (4) HLD (hyperlipidemia) Code(s): E78.5 - HYPERLIPIDEMIA, UNSPECIFIED Status: Chronic (5) HTN (hypertension) Code(s): I10 - ESSENTIAL (PRIMARY) HYPERTENSION Status: Chronic (6) Schizoaffective disorder Code(s): F25.9 - SCHIZOAFFECTIVE DISORDER, UNSPECIFIED Status: Chronic - Plan Plan: Hypo-osmolar hyponatremia A- Nephro consulted, appreciate recs. Likely 2/2 dilutional hyponatremia with excessive free water intake. Will need fluid restriction home diet. P- continue fluid restriction - increase meat in diet - continue to monitor Na, will plan for DC when normalized TIA vs. sequela of hypnatremia A- more likely 2/[address] illness [address] hyponatremia. CT head negative with resolved symptoms and normal NIH stroke scale P- Continue his home dose of Statin and ASA - will monitor neuro symptoms Elevated CK A- Possibly elevated 2/2 cancer P- PO hydration Leukocytosis A- no symptoms of infection P- will repeat CBC today HTN -No acute issues, continue to monitor pressures HLD -continue home statin DM -home meds Hx/o Spindle cell ca w/ mets -Possibly contributing to hyponatremia Schizophrenia vs schizoaffective order - given home Risperidone - will cont risperdol
[2018-01-24 07:31] LABS: Anion Gap 13 mmol/L (10-20); BUN (Urea Nitrogen) 10 mg/dL (8.9-20.6); Calc. Creatinine Clearance 122 mL/min (70-130); Calcium 9.8 mg/dL (7.8-10.44); Carbon Dioxide 27 mmol/L (22-29); Chloride 98 mmol/L (98-107); Estimated GFR-MDRD Greater than 90; Glucose 106 mg/dL (70-105); Potassium 4.2 mmol/L (3.5-5.1); Sodium 134 mmol/L (136-145)
[2018-01-24 08:45] LABS: Hemoglobin 7.8 g/dL (14.0-18.0); Mean Corpuscular HGB CONC 30.9 g/dL (32.0-36.0); Mean Corpuscular Hemoglobin 24.5 pg (27.0-31.0); Mean Corpuscular Volume 79.4 fL (78.0-98.0); Platelet Count 219 thou/uL (130-400); RBC Distribution Width 15.8 % (11.5-14.5); Red Blood Cell (RBC) Count 3.16 mill/uL (4.70-6.10)
[2018-01-24] MEDS: Enoxaparin Sodium 30 MG/0.3 ML SYRINGE SC SCH (09:08)
[2018-01-24] MEDS: metFORMIN 500 MG TAB PO SCH (09:08)
[2018-01-24] MEDS: Aspirin 81 mg Enteric Coated Tablet PO SCH (09:08)
[2018-01-24] MEDS: Ferrous Sulfate 325 MG TAB PO SCH (09:08)
[2018-01-24 10:16] LABS: Band 11 % (5-11); Eosinophils 3 % (0-10); Hypochromia SLIGHT = 6-15 cells (100X) (0-5/hpf); Lymphocytes 6 % (21-51); MDiff Complete? YES; Metamyelocyte 2 % (0-0); Microcytosis SLIGHT = 6-15 cells (100X) (0-5/hpf); Monocytes 17 % (0-10); Myelocyte 1 % (0-0); Neutrophil 55 % (42-75); PLT Morphology Comment Appears Adequate; Polychromasia SLIGHT = 2-3 cells (100X) (0-2/hpf); Reactive Lymphocytes 5 % (0-10); Target Cells SLIGHT = 2-5 cells (100X) (0-1/hpf); White Blood Cell (WBC) Count 22.8 thou/uL (4.8-10.8)
[2018-01-24 11:47] VITALS: BP 94/71; TEMP 98.4
--- NOTE | 2018-01-25 07:23 | HP ---
ADDENDUM: Please see the history and physical done by Dr. Jeff Wan, for which I agree. The patient was seen, evaluated, and discussed with the residents by bedside. 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 It sounds like he keeps frequently coming to the hospital with hyponatremia. It seemed to be secondary to SIADH. He was actually just in the hospital and within less than 8 hours of leaving the hospital, his sodium crashed probably from drinking too much fluids and had gone all the way down to 124. He was having symptoms of just generalized weakness, dizziness, and feeling like his right leg was having a lot of numbness and tingling, which happens often when he does get hyponatremia. White count also elevated, unclear why, hemoglobin is chronically low, not a big change as far as that goes, so is being admitted for the hyponatremia. PAST MEDICAL HISTORY: Significant for schizophrenia, spindle cell sarcoma, chronic hyponatremia, and diabetes. Past surgical history, family history, social history, review of systems, and medications, all per the resident's history and physical. PHYSICAL EXAMINATION: GENERAL: No apparent distress. Seems appropriate. HEENT: Within normal limits except for conjunctivae being slightly pale. CHEST: Clear. CARDIOVASCULAR: Regular rate and rhythm. ABDOMEN: Benign. EXTREMITIES: Right lower extremity; no edema. Good pulses. Left leg amputation. LABORATORY DATA: As discussed above. ASSESSMENT AND PLAN: 1. Hyponatremia, symptomatic. Plan is to fluid restrict. Because it keeps recurring and so fast, we can get Nephrology's opinion on that. 2. Spindle cell sarcoma, being followed by Kirstie at [facility]. 3. Psychiatric issues, on numerous medicines. 4. History of medical noncompliance. He lives in [place]. Apparently gets bus to [facility] for these treatments. So, it sounds like he has been taken care of at home. May get Palliative Care's input on his care as well to see if they have any other thoughts about how to help him, but likely since we get his sodium level better, he will be able to be discharged probably tomorrow. Job ID: [id number]
--- NOTE | 2018-01-25 08:22 | CON ---
DATE OF CONSULTATION: ADDENDUM: Please see the note from Dr. Pierre, for which I agree. The patient was seen, evaluated, examined, and discussed with the residents by bedside. Still back to his normal baseline as far as mental state. His sodium level is in mid 130s, so ready to go home. He was seen by Nephrology, who basically thinks that he just has potomania in a way and just drinks way too much water and not getting enough and then really thinks that is why he keeps getting hyponatremic. So we are going to try to keep him from drinking water, just drinking things like Gatorade or something with at least a little bit of salt or electrolytes, and minimize drinking water. He was drinking an incredible amount of fluids yesterday despite the nurses trying to keep him from drinking those fluids according to the nursing staff, so it sounds like this is a little bit of a psychiatric issue, where he keeps drinking fluid, but he seems to understand now not to do that until he will be discharged and is to follow up with his oncologist in [place]. Job ID: [id number]
[2018-01-25] MEDS ORDERED: Polyethylene Glycol 3350 17 GM Packet PO SCH (09:00)
--- NOTE | 2018-01-25 14:13 | DIS ---
DATE OF ADMISSION: 01/23/2018 DATE OF DISCHARGE: 01/24/2018 ADMITTING ATTENDING: Dr. Castrejon. DISCHARGE ATTENDING: Dr. Castrejon. CONSULT: Nephrology, Dr. Kadeem Hummel. PROCEDURES: 1. Brain CT on 01/22/2018; impression, no acute process is identified. 2. On 01/23/2018, chest x-ray; impression, no acute cardiopulmonary findings. Right lower lung zone pulmonary nodule and pulmonary mass. Right-sided implantable vascular access port. PRIMARY DIAGNOSIS: Symptomatic hyponatremia. SECONDARY DIAGNOSES: 1. Schizophrenia. 2. History of spindle cell carcinoma. 3. Diabetes mellitus. 4. Hypertension. 5. Hyperlipidemia. DISCHARGE MEDICATIONS: 1. Simvastatin 20 mg p.o. q.p.m. 2. Aspirin 81 mg p.o. daily. 3. Van [place]eter 10 one tablet p.o. q.4 hours p.r.n. resumed at home. 4. Metformin 500 mg p.o. daily. 5. Sennosides 8.6 mg p.o. daily. 6. Ferrous sulfate 325 mg p.o. daily. 7. Calcium carbonate 500 mg p.o. daily. 8. Hydrochlorothiazide 25 mg p.o. q.a.m. 9. Risperidone 3 mg p.o. at bedtime. 10. MiraLAX 17 g p.o. daily. 11. Naproxen 440 mg p.o. q.4 hours p.r.n. 12. Multivitamin 1 tab daily p.o. 13. Vitamin C 1000 mg p.o. daily. 14. Tylenol 325 q.4 hours. 15. Trazodone 100 mg p.o. at bedtime. DISCONTINUED MEDICATIONS: None. HISTORY OF PRESENT ILLNESS AND HOSPITAL COURSE: This is a 47-year-old male with history of spindle cell carcinoma, being treated currently at [facility], who was recently discharged for hyponatremia, presented back to the hospital on the day of discharge with report of drinking fluids and eating soup and was admitted again for symptomatic hyponatremia. At that time, the patient was complaining of headache and right-sided paresthesias. After stroke was ruled out with brain CT, hyponatremia was treated with fluid restriction and gentle IV fluids at first, but then transitioned to simple fluid restriction. Urine and serum studies for hyponatremia were done as well as Nephrology consulted, and the patient was found to not be having SIADH, and hyponatremia was found to be secondary to dilutional hyponatremia because of the patient's compulsion to drink excessive amounts of free water. Additionally, during hospital stay, nurse reported that the patient would against advice drink excessive amounts of water. The patient was counseled and educated on free water intake and hyponatremia and verbalized understanding and intend for decreased p.o. free water intake as well as increase meats in diet per Nephrology's recommendations. As sodium was corrected and patient was deemed stable for discharge, he was discharged. DISPOSITION: Stable. DISCHARGE INSTRUCTIONS: 1. Location: Home. 2. Diet: Restriction of free water and increase meat protein. 3. Activity: As tolerated. 4. Followup: Follow up with primary care provider in 7 days. Job ID: [id number]
--- NOTE | 2018-01-26 12:42 | EKG ---
Test Reason : Blood Pressure : / mmHG Vent. Rate : 080 BPM Atrial Rate : 080 BPM P-R Int : 202 ms QRS Dur : 106 ms QT Int : 378 ms P-R-T Axes : 041 054 051 degrees QTc Int : 435 ms Normal sinus rhythm Normal ECG Confirmed by LEO DUQUE, MARAL Roach ([id number]), index editor MARTHA ECHEVERRIA ([id number]) on 01/26/2018 12:41:42 PM Referred By: Confirmed By:MARAL BAILEY MD
== END 2018-01-24 16:14 | disposition home or self-care (01) ==
LOC: ERS 20:43 → 2SE 01-23 00:25
PROVIDERS: ADMIT Family Medicine; ATTEND Family Medicine
DX: E87.1 Hypo-osmolality and hyponatremia (principal); F25.9 Schizoaffective disorder, unspecified; C49.9 Malignant neoplasm of connective and soft tissue, unspecified; E11.9 Type 2 diabetes mellitus without complications; I10 Essential (primary) hypertension; E78.5 Hyperlipidemia, unspecified; Z79.82 Long term (current) use of aspirin; Z79.84 Long term (current) use of oral hypoglycemic drugs; Z79.899 Other long term (current) drug therapy
CPT/HCPCS: 36415; 36416; 70450; 71045; 80048; 80306; 80307; 81003; 82550; 83735; 83935; 84145; 84300; 85025; 87040; 87086; 93005; 96360; 96361; 96372; G0378; G8978-GP-CJ; G8979-GP-CI; J1650

== ENCOUNTER 2018-05-01 08:51 | Emergency (ER) | payer OTHER ==
[2018-05-01 09:30] LABS: Hemoglobin 7.9 g/dL (14.0-18.0); Mean Corpuscular Hemoglobin 25.3 pg (27.0-31.0); Mean Corpuscular Volume 81.7 fL (78.0-98.0); RBC Distribution Width 17.1 % (11.5-14.5); Red Blood Cell (RBC) Count 3.14 mill/uL (4.70-6.10)
[2018-05-01 09:54] LABS: ALT (SGPT) 25 U/L (8-55); AST (SGOT) 26 U/L (5-34); Albumin 3.7 g/dL (3.5-5.0); Alkaline Phosphatase 110 U/L (40-150); Anion Gap 14 mmol/L (10-20); BUN (Urea Nitrogen) 7 mg/dL (8.9-20.6); Bilirubin, Total 0.2 mg/dL (0.2-1.2); Calc. Creatinine Clearance 0 mL/min (70-130); Calcium 8.6 mg/dL (7.8-10.44); Carbon Dioxide 23 mmol/L (22-29); Chloride 101 mmol/L (98-107); Estimated GFR-MDRD Greater than 90; Globulin 2.8 g/dL (2.4-3.5); Glucose 145 mg/dL (70-105); Lipase 30 U/L (8-78); Magnesium 2.4 mg/dL (1.6-2.6); Potassium 3.8 mmol/L (3.5-5.1); Protein, Total 6.5 g/dL (6.0-8.3); Sodium 134 mmol/L (136-145)
[2018-05-01 10:17] LABS: Band 11 % (5-11); Burr Cells SLIGHT = 2-5 cells (100X) (0-1/hpf); Eosinophils 2 % (0-10); Hypochromia MODERATE=16-30 cells (100X) (0-5/hpf); Lymphocytes 4 % (21-51); MDiff Complete? YES; Mean Platelet Volume 9.8 fL (7.4-10.4); Metamyelocyte 6 % (0-0); Neutrophil 77 % (42-75); Platelet Count 143 thou/uL (130-400); Platelet Morphology Comment Appears Adequate; Schistocytes SLIGHT = 2-5 cells (100X) (0-1/hpf); White Blood Cell (WBC) Count 26.7 thou/uL (4.8-10.8)
[2018-05-01 10:18] LABS: Bilirubin Negative (Negative); Blood, Urine Negative (Negative); Clarity CLEAR (Clear); Glucose, Urine (Dipstick) Negative (Negative); Leukocyte Negative (Negative); Nitrite Negative (Negative); Protein, Urine (Dipstick) Negative (Neg-Trace); Specific Gravity, Urine 1.004 (1.002-1.036); Urobilinogen 0.2 mg/dL (0.2-1.0)
--- NOTE | 2018-05-01 10:24 | RAD ---
PORTABLE CHEST: DATE: 05/01/2018. PROVIDED CLINICAL HISTORY: Altered mental status. FINDINGS: Comparison 01/23/2018. Cardiac and mediastinal silhouette is unchanged in appearance. Right subclav angela implanted port is again seen in similar position. Nodular densities involving the right lung bas e seen on prior examination are not discretely identified on today's exam. No focal consolidation, p leural fluid, or pneumothorax apparent. IMPRESSION: No evidence for an acute cardiopulmonary process. POS: [facility]
== END 2018-05-01 11:00 | disposition home or self-care (01) ==
LOC: ERS 08:51
DX: D64.89 Other specified anemias (principal); I10 Essential (primary) hypertension; E11.9 Type 2 diabetes mellitus without complications; F31.9 Bipolar disorder, unspecified; F20.9 Schizophrenia, unspecified; F17.210 Nicotine dependence, cigarettes, uncomplicated; Z79.899 Other long term (current) drug therapy; Z79.82 Long term (current) use of aspirin
CPT/HCPCS: 36415; 36416; 71045; 80053; 81003; 83690; 83735; 84484; 85025; 87804; 93005

== ENCOUNTER 2018-05-01 14:37 | Emergency (ER) | payer OTHER | END 2018-05-01 16:05 | disposition home or self-care (01) | LOC: ERS 14:37 | DX: R11.2 Nausea with vomiting, unspecified (principal); E11.9 Type 2 diabetes mellitus without complications; I10 Essential (primary) hypertension; F31.9 Bipolar disorder, unspecified; F20.9 Schizophrenia, unspecified; F17.210 Nicotine dependence, cigarettes, uncomplicated; Z79.82 Long term (current) use of aspirin; Z79.899 Other long term (current) drug therapy | CPT/HCPCS: 99281 ==

== ENCOUNTER 2018-06-13 01:15 | Emergency (ER) | payer OTHER ==
[2018-06-13 01:55] LABS: #Eosinphils 0.1 thou/uL (0.0-0.7); #Monocytes 0.8 thou/uL (0.11-0.59); #Neutrophils 5.1 thou/uL (1.40-6.50); %Basophils 0.5 % (0.0-1.0); %Eosinophils 1.1 % (0.0-10.0); %Lymphocytes 13.8 % (21.0-51.0); %Monocytes 11.7 % (0.0-10.0); %Neutrophils 72.9 % (42.0-75.0); Hemoglobin 8.3 g/dL (14.0-18.0); Mean Corpuscular HGB CONC 31.5 g/dL (32.0-36.0); Mean Corpuscular Hemoglobin 25.4 pg (27.0-31.0); Mean Corpuscular Volume 80.7 fL (78.0-98.0); Mean Platelet Volume 7.5 fL (7.4-10.4); Platelet Count 510 thou/uL (130-400); RBC Distribution Width 16.9 % (11.5-14.5); Red Blood Cell (RBC) Count 3.25 mill/uL (4.70-6.10)
[2018-06-13 02:15] LABS: ALT (SGPT) 15 U/L (8-55); AST (SGOT) 26 U/L (5-34); Albumin 3.8 g/dL (3.5-5.0); Alkaline Phosphatase 90 U/L (40-150); Anion Gap 13 mmol/L (10-20); BUN (Urea Nitrogen) 6 mg/dL (8.9-20.6); Bilirubin, Total 0.2 mg/dL (0.2-1.2); Calc. Creatinine Clearance 0 mL/min (70-130); Calcium 9.4 mg/dL (7.8-10.44); Carbon Dioxide 24 mmol/L (22-29); Chloride 104 mmol/L (98-107); Estimated GFR-MDRD Greater than 90; Glucose 126 mg/dL (70-105); Potassium 3.8 mmol/L (3.5-5.1); Protein, Total 6.8 g/dL (6.0-8.3); Sodium 137 mmol/L (136-145)
--- NOTE | 2018-06-13 07:55 | RAD ---
1 view chest. HISTORY: Malaise. AP view chest obtained on 06/13/2018. Comparison made to previous exam from 05/01/2018. AP view chest demonstrates right jugular Mediport catheter in place. The lungs are well aerated. No e vidence of active intrathoracic disease seen. No evidence of effusions, pneumonia or pneumothorax seen. IMPRESSION: unremarkable one view chest.
== END 2018-06-13 03:32 | disposition home or self-care (01) ==
LOC: ERS 01:15
DX: R53.81 Other malaise (principal); F31.9 Bipolar disorder, unspecified; F20.9 Schizophrenia, unspecified; F17.210 Nicotine dependence, cigarettes, uncomplicated; I10 Essential (primary) hypertension; E11.9 Type 2 diabetes mellitus without complications; E78.00 Pure hypercholesterolemia, unspecified; Z79.82 Long term (current) use of aspirin; Z79.899 Other long term (current) drug therapy
CPT/HCPCS: 36415; 71045; 80053; 84484; 85025; 93005

== ENCOUNTER 2018-12-04 18:52 | Emergency (ER) | payer OTHER ==
[2018-12-04] MEDS ORDERED: Ketorolac Tromethamine 30 MG/ML VIAL ONE (19:43)
--- NOTE | 2018-12-04 19:52 | RAD ---
CHEST ONE VIEW: 12/04/18 HISTORY: Headache. Weakness. COMPARISON: 06/13/18. FINDINGS: Normal cardiac silhouette. Pulmonary vessels and hilum are normal. Costophrenic angles are clear. No masses or consolidation. No pneumothorax or osseous abnormalities. Stable right sided Port-A-Cath. IMPRESSION: No acute cardiopulmonary process. POS: [facility]
[2018-12-04 19:57] LABS: Mean Corpuscular Volume 79.1 fL (78.0-98.0)
[2018-12-04 20:04] LABS: ALT (SGPT) 22 U/L (8-55); AST (SGOT) 36 U/L (5-34); Albumin 4.2 g/dL (3.5-5.0); Alkaline Phosphatase 182 U/L (40-110); Anion Gap 13 mmol/L (10-20); BUN (Urea Nitrogen) 5 mg/dL (8.9-20.6); Bilirubin, Total 0.2 mg/dL (0.2-1.2); Calc. Creatinine Clearance 0 mL/min (70-130); Calcium 9.6 mg/dL (7.8-10.44); Carbon Dioxide 24 mmol/L (22-29); Chloride 104 mmol/L (98-107); Estimated GFR-MDRD Greater than 90; Globulin 3.1 g/dL (2.4-3.5); Glucose 102 mg/dL (70-105); Potassium 3.8 mmol/L (3.5-5.1); Protein, Total 7.3 g/dL (6.0-8.3); Sodium 137 mmol/L (136-145)
[2018-12-04 20:20] LABS: Anisocytosis SLIGHT = 6-15 cells (100X) (0-5/hpf); Band 33 % (5-11); Elliptocytes SLIGHT = 2-5 cells (100X) (0-1/hpf); Hemoglobin 8.1 g/dL (14.0-18.0); Lymphocytes 16 % (21-51); MDiff Complete? YES; Mean Corpuscular HGB CONC 31.1 g/dL (32.0-36.0); Mean Corpuscular Hemoglobin 24.6 pg (27.0-31.0); Mean Platelet Volume 10.1 fL (7.4-10.4); Metamyelocyte 2 % (0-0); Monocytes 5 % (0-10); Myelocyte 8 % (0-0); Neutrophil 35 % (42-75); Nucleated RBC 3 % (0); Platelet Count 164 thou/uL (130-400); RBC Distribution Width 17.6 % (11.5-14.5); Red Blood Cell (RBC) Count 3.31 mill/uL (4.70-6.10); Reflex for Review?? YES; Toxic Granulation MODERATE; White Blood Cell (WBC) Count 57.1 thou/uL (4.8-10.8)
[2018-12-04 20:28] LABS: Bilirubin Negative (Negative); Blood, Urine Negative (Negative); Clarity Clear (Clear); Glucose, Urine (Dipstick) Normal (Negative); Leukocyte Negative Leu/uL (Negative); Nitrite Negative (Negative); Protein, Urine (Dipstick) Negative (Neg-Trace); Urobilinogen Normal mg/dL (Less than 2)
== END 2018-12-04 21:57 | disposition home or self-care (01) ==
LOC: ERS 18:52
DX: D72.829 Elevated white blood cell count, unspecified (principal); T45.1X5A Adverse effect of antineoplastic and immunosuppressive drugs, initial encounter; C41.9 Malignant neoplasm of bone and articular cartilage, unspecified; D63.0 Anemia in neoplastic disease; I10 Essential (primary) hypertension; E11.9 Type 2 diabetes mellitus without complications; F31.9 Bipolar disorder, unspecified; F20.9 Schizophrenia, unspecified; F17.210 Nicotine dependence, cigarettes, uncomplicated
CPT/HCPCS: 36415; 71045; 80053; 81003; 84484; 85025; 85060; 87040; 87804; 93005; 96374; J1885

== ENCOUNTER 2018-12-20 23:48 | Observation (INO) | payer OTHER ==
[2018-12-21 00:22] LABS: Mean Corpuscular HGB CONC 31.6 g/dL (32.0-36.0); Mean Corpuscular Hemoglobin 25.1 pg (27.0-31.0); Mean Corpuscular Volume 79.6 fL (78.0-98.0); Mean Platelet Volume 10.3 fL (7.4-10.4); Platelet Count 127 thou/uL (130-400); RBC Distribution Width 17.8 % (11.5-14.5); Red Blood Cell (RBC) Count 2.78 mill/uL (4.70-6.10); White Blood Cell (WBC) Count 29.3 thou/uL (4.8-10.8)
[2018-12-21 00:38] LABS: Band 14 % (5-11); Hypochromia SLIGHT = 6-15 cells (100X) (0-5/hpf); Lymphocytes 3 % (21-51); MDiff Complete? YES; Monocytes 1 % (0-10); Neutrophil 82 % (42-75); Tear Drops SLIGHT = 2-5 cells (100X) (0-1/hpf)
[2018-12-21 00:43] LABS: ALT (SGPT) 13 U/L (8-55); AST (SGOT) 18 U/L (5-34); Albumin 4.1 g/dL (3.5-5.0); Alkaline Phosphatase 144 U/L (40-110); Anion Gap 11 mmol/L (10-20); BUN (Urea Nitrogen) 8 mg/dL (8.9-20.6); Bilirubin, Total 0.2 mg/dL (0.2-1.2); Calc. Creatinine Clearance 0 mL/min (70-130); Calcium 8.7 mg/dL (7.8-10.44); Carbon Dioxide 27 mmol/L (22-29); Chloride 101 mmol/L (98-107); Estimated GFR-MDRD Greater than 90; Globulin 2.3 g/dL (2.4-3.5); Glucose 121 mg/dL (70-105); Potassium 3.5 mmol/L (3.5-5.1); Protein, Total 6.4 g/dL (6.0-8.3); Sodium 135 mmol/L (136-145)
[2018-12-21 06:17] VITALS: BMI 23.5
--- NOTE | 2018-12-21 07:45 | CT ---
PRELIMINARY REPORT/[facility]/EMERGENCY AFTER HOURS PROCEDURE: PROCEDURE INFORMATION: Exam: CT Head Without Contrast Exam date and time: 12/21/2018 12:24 AM Clinical history: 47 years old, male; Headache; Patient HX: M47 presents to ED for weakness. PT repor ts right arm and leg weakness, right finger numbness x2 days. PT denies HX of similar SX. PT reports loss of appetite and nausea, no vomiting. Last chemo treatment was on Thursday. PT also reports lower back pain x2 days TECHNIQUE: Imaging protocol: Computed tomography of the head without contrast. COMPARISON: No relevant prior studies available. FINDINGS: Brain: Normal. No hemorrhage. Unremarkable white matter. No mass effect. Ventricles: Normal. No ventriculomegaly. Bones/joints: Unremarkable. No acute fracture. Sinuses: There is mucosal thickening in the bilateral ethmoid, maxillary and right sphenoid sinuses. Mastoid air cells: Visualized mastoid air cells are well aerated. Soft tissues: Unremarkable. IMPRESSION: 1. No acute intracranial abnormality. 2. Evidence of paranasal sinus disease. Thank you for allowing us to participate in the care of your patient. Dictated and Authenticated by: Rand Pappas MD 12/21/2018 12:43 AM Central Time ([place] & [place]) FINAL REPORT EMERGENCY AFTER HOURS CT BRAIN WITHOUT CONTRAST: DATE: 12/21/18 COMPARISON: 01/22/18. FINDINGS/IMPRESSION: I agree with the findings and impression given in the preliminary report per [facility] physician. No evide nce of acute intracranial abnormality. POS: [facility]
--- NOTE | 2018-12-21 07:52 | RAD ---
EXAM: Single view of the chest HISTORY: Right arm numbness COMPARISON: 06/13/2018 FINDINGS: Single view of the chest shows a normal sized cardiomediastinal silhouette. The Mediport i s unchanged in position. There is no evidence of consolidation, mass, or pleural effusion. The bones are unremarkable. IMPRESSION: No evidence of acute cardiopulmonary disease
[2018-12-21] MEDS ORDERED: FLU VACC QS2019-20(6MOS UP)/PF 60 MCG/0.5 ML SYRINGE IM ONE (08:45)
[2018-12-21] MEDS ORDERED: Prevnar 13-Val Conj/PF 0.5 ML SYRINGE IM ONE (08:45)
[2018-12-21] MEDS ORDERED: Guaifenesin DM 100-10/5 ML UDCUP PO PRN (09:56)
[2018-12-21] MEDS ORDERED: HYDROcodone/Acetaminophen 10/325 mg Tablet PO PRN (09:56)
[2018-12-21] MEDS ORDERED: Senokot S 8.6-50 MG TAB PO PRN (09:56)
[2018-12-21] MEDS ORDERED: Ondansetron PF 4 MG/2 ML Vial IVP PRN (09:56)
[2018-12-21] MEDS ORDERED: Acetaminophen 325 MG TAB PO PRN (09:56)
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
[2018-12-21] MEDS ORDERED: Sodium Chloride 0.9% 1,000 ML IV SCH (11:30)
[2018-12-21 12:35] VITALS: BP 113/57; TEMP 98.8
[2018-12-21] MEDS ORDERED: Gabapentin 300 MG CAP PO SCH (15:00)
[2018-12-21] MEDS ORDERED: Benzonatate 100 MG CAP PO SCH (15:00)
[2018-12-21] MEDS ORDERED: Albuterol Sulfate 1.25 MG/3 ML NEB NEB SCH (15:00)
--- NOTE | 2018-12-21 16:55 | SS ---
DATE OF ADMISSION: 12/21/2018 DATE OF DISCHARGE: 12/21/2018 REASON FOR HOSPITALIZATION: Anemia and weakness. HISTORY OF PRESENTING ILLNESS: The patient gives history of right arm and leg weakness for the last 2 days. He is also having cough with greenish expectoration for almost 3-4 weeks now. He tried taking NyQuil, but his blood pressure increased with it. He did not feel like eating from yesterday. He has had loss of appetite. No active bleeding including rectum. 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 He is on gemcitabine and docetaxel and follows up at [facility]. He has had chemotherapy done last and had a shot of Neupogen as well. He is able to move all extremities at present. He has no complaints of any trauma to his neck or head. He mobilizes himself with a rolling walker and hops with it. PAST MEDICAL AND SURGICAL HISTORY: 1. 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 Last chemotherapy was last . He has had a Neupogen shot as well with the chemotherapy infusion. 2. Diabetes mellitus, type 2. 3. Dyslipidemia. 4. Hypertension. 5. MediPort. 6. Left shoulder surgery. 7. The patient is scheduled for a PET scan on the . CURRENT MEDICATIONS: The patient is on; 1. Ferrous sulfate 325 mg twice daily. 2. Aspirin 81 mg daily. 3. Simvastatin 20 mg p.o. q.p.m. 4. Buspirone 15 mg twice daily. 5. Gabapentin 300 mg p.o. 3 times daily. 6. Seroquel 300 mg p.o. nightly. 7. Centrum Silver once daily. 8. Invega shots once monthly. The last shot he had was on the for schizoaffective disorder. 9. Vitamin C 1000 mg p.o. daily. 10. Vitamin B12 of 500 mcg p.o. daily. 11. Vitamin E daily. ALLERGIES: NO KNOWN DRUG ALLERGIES. PERSONAL HISTORY: He smokes around 6 cigarettes a day. Does not abuse alcohol or drugs. He is currently living at the [facility]. His cod clerk is planning to get him an apartment either today or tomorrow. FAMILY HISTORY: Mother at the age of 56, she was in a coma. He does not know the exact details of her illness. Father at the age of 85. The patient has a grown daughter, who is 31 years of age, and is not in contact with her. The last he saw her was a year back. CODE STATUS: Full. Power of real estate associate attorney is his sister. REVIEW OF SYSTEMS: CONSTITUTIONAL: Negative for weight loss or gain, ability to conduct usual activities. SKIN: Negative for rash, itching. EYES: Negative for double vision, pain. ENT/MOUTH: Negative for nose bleeding, neck stiffness, pain, tenderness. CARDIOVASCULAR: Negative for palpitations, dyspnea on exertion, orthopnea. RESPIRATORY: Negative for shortness of breath, wheezing, hemoptysis, fever or night sweats. GASTROINTESTINAL: Negative for poor appetite, abdominal pain, heartburn, nausea , vomiting, constipation, or diarrhea. GENITOURINARY: Negative for urgency, frequency, dysuria, nocturia. MUSCULOSKELETAL: Negative for pain, swelling. NEUROLOGIC/PSYCHIATRIC: Negative for anxiety, depression. ALLERGY/IMMUNOLOGIC: Negative for skin rash, bleeding tendency. PHYSICAL EXAMINATION: GENERAL: The patient is a 47-year-old male, who is currently not in any acute distress. VITAL SIGNS: Blood pressure 102/56, pulse 86 per minute, respiratory rate 16 per minute, temperature is 98.9 degrees Fahrenheit, and saturating 96% on room air. NECK: Supple. No elevated JVP. EYES: Extraocular muscles intact. Pupils reacting to light. ORAL CAVITY: Mucous membranes are moist. No exudates or congestion. CARDIOVASCULAR SYSTEM: S1 and S2 heard. Regular rhythm. RESPIRATORY SYSTEM: Air entry 2+ bilateral. Scattered rhonchi plus no rales or wheezes. ABDOMEN: Soft. Bowel sounds heard. No tenderness, rigidity, or guarding. EXTREMITIES: The right lower extremity has no calf tenderness. Peripheral pulses are 2+ bilateral. The patient has prior amputation of entire left lower extremity with a short femoral stump left him. No ischemic ulcerations or gangrene. CENTRAL NERVOUS SYSTEM: No gross focal motor deficits noted. The patient moves all extremities. The cranial nerves are intact. Motor system, strength is 5/5 in all 3 extremities. PSYCHIATRIC: No obvious hallucinations or delusions. The patient is oriented well. LABORATORY DATA: A CT chest without contrast done shows approximately 9 mm pulmonary nodule in the right lower lobe when compared to a prior CAT scan done in 03/2017. The size of this has become smaller. There is also resolution of multiple bilateral pulmonary nodules, which were seen on the prior CAT scan in 2018. There is a 4-mm pulmonary nodule present at the right lung base. No enlarged lymph nodes were seen on the CT. Colonic diverticulosis was seen. Tiny left pleural effusion was seen. A CT brain without contrast done showed no acute intracranial abnormality. There is paranasal sinus disease seen. Electrolytes stable; BUN 8 , creatinine 0.8, serum glucose 121. Liver enzymes; AST and ALT within normal limits, total bilirubin 0.2, and alkaline phosphatase 144. First set of troponin is negative. Albumin is 4.1. White count of 29, hemoglobin and hematocrit 7 and 22, platelet count is 127, and MCV is 79 with 82% neutrophils and 14% bands. CLINICAL IMPRESSION AND PLAN: The patient will be shortly discharged home. I spoke to his oncologist at [facility], Dr. Jimmy Roberson. The patient received his last chemotherapy on with gemcitabine and docetaxel. He also received a shot of Neupogen. His elevated white count is secondary to that. The patient has received 1 unit of packed cell transfusion. He has had a CT chest done with 3 weeks history of cough with greenish phlegm and postnasal drip with congestion. In view of this, he is being discharged on Levaquin 500 mg p.o. daily for another 5 days. He is hemodynamically stable and will be shortly discharged home. He has a followup appointment to see his oncologist in the coming week. He needs to continue all his home medications as before. Please note this is a same day admit and discharge under observation status. Job ID: [id number] [facility]
[2018-12-21] MEDS ORDERED: busPIRone HCl 10 MG TAB PO SCH (21:00)
[2018-12-21] MEDS ORDERED: Simvastatin 20 MG TAB PO SCH (21:00)
[2018-12-21] MEDS ORDERED: Atorvastatin Calcium 10 MG TAB PO SCH (21:00)
[2018-12-21] MEDS ORDERED: guaiFENesin ER 600 MG TAB PO SCH (21:00)
[2018-12-22] MEDS ORDERED: MULTIVIT MIN PO SCH (09:00)
[2018-12-22] MEDS ORDERED: LYCOP PO SCH (09:00)
[2018-12-22] MEDS ORDERED: Ferrous Sulfate 325 MG TAB PO SCH (09:00)
[2018-12-22] MEDS ORDERED: FOLIC PO SCH (09:00)
[2018-12-22] MEDS ORDERED: [UNRECOGNIZED DRUG - OTHER] PO SCH (09:00)
[2018-12-22] MEDS ORDERED: Multivitamin W/ Minerals 1 TAB PO SCH (09:00)
[2018-12-22] MEDS ORDERED: Polyethylene Glycol 3350 17 GM Packet PO SCH (09:00)
== END 2018-12-21 13:04 | disposition home or self-care (01) ==
LOC: ERS 23:48 → 2SW 12-21 01:56
PROVIDERS: ADMIT Family Medicine; ATTEND Family Medicine
DX: D64.9 Anemia, unspecified (principal); R53.1 Weakness; C76.52 Malignant neoplasm of left lower limb; E11.9 Type 2 diabetes mellitus without complications; E78.5 Hyperlipidemia, unspecified; I10 Essential (primary) hypertension; F25.9 Schizoaffective disorder, unspecified; F17.210 Nicotine dependence, cigarettes, uncomplicated; R91.1 Solitary pulmonary nodule; K80.20 Calculus of gallbladder without cholecystitis without obstruction; K57.30 Diverticulosis of large intestine without perforation or abscess without bleeding; J90 Pleural effusion, not elsewhere classified; Z79.82 Long term (current) use of aspirin; Z79.899 Other long term (current) drug therapy; Z89.612 Acquired absence of left leg above knee
CPT/HCPCS: 36415; 36416; 36430; 70450; 71045; 71250; 80053; 84484; 85025; 86850; 86900; 86901; 93005; G0378; P9016

== ENCOUNTER 2018-12-30 20:04 | Emergency (ER) | payer OTHER ==
--- NOTE | 2018-12-30 21:00 | RAD ---
RADIOGRAPH CHEST 1 VIEW: DATE: 12/30/2018 HISTORY: 48-year-old male with chest pain FINDINGS: The visualized lung lowe are clear. The cardiomediastinal silhouette and hilar shadows are normal. The lateral costophrenic angles are sharp. There is a right IJ implantable vascular access port with catheter tip at SVC/right atrial junction. There is no pneumothorax. IMPRESSION: 1. Right-sided implantable vascular access port. 2. Otherwise negative.
[2018-12-30 21:06] LABS: Hemoglobin 8.7 g/dL (14.0-18.0); Mean Corpuscular Hemoglobin 26.5 pg (27.0-31.0); Mean Corpuscular Volume 80.4 fL (78.0-98.0); Red Blood Cell (RBC) Count 3.29 mill/uL (4.70-6.10); White Blood Cell (WBC) Count 8.7 thou/uL (4.8-10.8)
[2018-12-30 21:17] LABS: ALT (SGPT) 13 U/L (8-55); AST (SGOT) 17 U/L (5-34); Albumin 4.1 g/dL (3.5-5.0); Alkaline Phosphatase 106 U/L (40-110); Anion Gap 12 mmol/L (10-20); BUN (Urea Nitrogen) 19 mg/dL (8.9-20.6); Bilirubin, Total 0.2 mg/dL (0.2-1.2); Calc. Creatinine Clearance 0 mL/min (70-130); Calcium 9.3 mg/dL (7.8-10.44); Carbon Dioxide 24 mmol/L (22-29); Chloride 101 mmol/L (98-107); Estimated GFR-MDRD Greater than 90; Glucose 96 mg/dL (70-105); Protein, Total 7.1 g/dL (6.0-8.3); Sodium 133 mmol/L (136-145)
[2018-12-30 21:24] LABS: #Eosinphils 0.1 thou/uL (0.0-0.7); #Lymphocytes 1.2 thou/uL (1.20-3.40); #Monocytes 0.8 thou/uL (0.11-0.59); #Neutrophils 6.6 thou/uL (1.40-6.50); %Basophils 0.4 % (0.0-1.0); %Monocytes 8.8 % (0.0-10.0); %Neutrophils 75.8 % (42.0-75.0); Anisocytosis SLIGHT = 6-15 cells (100X) (0-5/hpf); MDiff Complete? YES; Mean Platelet Volume 8.2 fL (7.4-10.4); Platelet Count 434 thou/uL (130-400); Platelet Morphology Comment Appears Adequate; RBC Distribution Width 17.9 % (11.5-14.5); Tear Drops SLIGHT = 2-5 cells (100X) (0-1/hpf)
== END 2018-12-30 22:50 | disposition home or self-care (01) ==
LOC: ERS 20:04
DX: R20.2 Paresthesia of skin (principal); E11.9 Type 2 diabetes mellitus without complications; E78.5 Hyperlipidemia, unspecified; I10 Essential (primary) hypertension; F31.9 Bipolar disorder, unspecified; F17.210 Nicotine dependence, cigarettes, uncomplicated; Z79.899 Other long term (current) drug therapy; Z89.612 Acquired absence of left leg above knee
CPT/HCPCS: 36415; 71045; 80053; 84484; 85025; 93005

== ENCOUNTER 2019-03-12 23:58 | Emergency (ER) | payer OTHER ==
[2019-03-13 02:12] LABS: Hemoglobin 8.5 g/dL (14.0-18.0); Mean Corpuscular HGB CONC 32.5 g/dL (32.0-36.0); Mean Corpuscular Volume 80.1 fL (78.0-98.0); RBC Distribution Width 18.6 % (11.5-14.5); Red Blood Cell (RBC) Count 3.26 mill/uL (4.70-6.10); White Blood Cell (WBC) Count 5.3 thou/uL (4.8-10.8)
[2019-03-13 02:28] LABS: ALT (SGPT) 12 U/L (8-55); AST (SGOT) 23 U/L (5-34); Albumin 4.1 g/dL (3.5-5.0); Alkaline Phosphatase 84 U/L (40-110); Anion Gap 13 mmol/L (10-20); BUN (Urea Nitrogen) 7 mg/dL (8.9-20.6); Bilirubin, Total 0.2 mg/dL (0.2-1.2); Calc. Creatinine Clearance 0 mL/min (70-130); Calcium 9.1 mg/dL (7.8-10.44); Carbon Dioxide 23 mmol/L (22-29); Chloride 100 mmol/L (98-107); Estimated GFR-MDRD Greater than 90; Globulin 3.2 g/dL (2.4-3.5); Glucose 99 mg/dL (70-105); Potassium 4.2 mmol/L (3.5-5.1); Protein, Total 7.3 g/dL (6.0-8.3); Sodium 132 mmol/L (136-145)
[2019-03-13 02:45] LABS: #Eosinphils 0.1 thou/uL (0.0-0.7); #Lymphocytes 1.2 thou/uL (1.20-3.40); #Monocytes 0.6 thou/uL (0.11-0.59); #Neutrophils 3.5 thou/uL (1.40-6.50); %Basophils 0.6 % (0.0-1.0); %Eosinophils 1.2 % (0.0-10.0); %Monocytes 10.5 % (0.0-10.0); %Neutrophils 65.7 % (42.0-75.0); Anisocytosis SLIGHT = 6-15 cells (100X) (0-5/hpf); Large Platelets SLIGHT; MDiff Complete? YES; Mean Platelet Volume 11.1 fL (7.4-10.4); Platelet Count 107 thou/uL (130-400); Platelet Morphology Comment Appears Decreased; Tear Drops SLIGHT = 2-5 cells (100X) (0-1/hpf)
--- NOTE | 2019-03-13 08:49 | RAD ---
PORTABLE CHEST ONE VIEW: HISTORY: Generalized malaise. COMPARISON: 12/30/2018 FINDINGS: Poor inspiration with some vascular crowding in the bases. Right central line and injection port. No confluent pneumonia. IMPRESSION: Poor inspiration with vascular crowding, particularly in the bases, without confluent pneumonia or ot her overt process. POS: MARJAN
== END 2019-03-13 06:57 | disposition home or self-care (01) ==
LOC: ERS 23:58
DX: R00.2 Palpitations (principal); R53.1 Weakness; E11.9 Type 2 diabetes mellitus without complications; E78.5 Hyperlipidemia, unspecified; E78.00 Pure hypercholesterolemia, unspecified; I10 Essential (primary) hypertension; F31.9 Bipolar disorder, unspecified; F20.9 Schizophrenia, unspecified; F17.210 Nicotine dependence, cigarettes, uncomplicated; Z79.899 Other long term (current) drug therapy
CPT/HCPCS: 36415; 71045; 80053; 85025; 93005; 96360

== ENCOUNTER 2019-03-17 17:29 | Emergency (ER) | payer OTHER ==
[2019-03-17 18:17] LABS: #Eosinphils 0.1 thou/uL (0.0-0.7); #Lymphocytes 1.3 thou/uL (1.20-3.40); #Monocytes 0.8 thou/uL (0.11-0.59); #Neutrophils 3.2 thou/uL (1.40-6.50); %Basophils 0.7 % (0.0-1.0); %Eosinophils 1.8 % (0.0-10.0); %Lymphocytes 23.4 % (21.0-51.0); %Monocytes 14.3 % (0.0-10.0); %Neutrophils 59.8 % (42.0-75.0); Hemoglobin 8.6 g/dL (14.0-18.0); Mean Corpuscular Hemoglobin 25.1 pg (27.0-31.0); Mean Corpuscular Volume 80.8 fL (78.0-98.0); Mean Platelet Volume 7.4 fL (7.4-10.4); Platelet Count 492 thou/uL (130-400); Red Blood Cell (RBC) Count 3.45 mill/uL (4.70-6.10); White Blood Cell (WBC) Count 5.3 thou/uL (4.8-10.8)
[2019-03-17 18:47] LABS: ALT (SGPT) 16 U/L (8-55); AST (SGOT) 29 U/L (5-34); Alkaline Phosphatase 78 U/L (40-110); Anion Gap 12 mmol/L (10-20); BUN (Urea Nitrogen) 7 mg/dL (8.9-20.6); Bilirubin, Total 0.3 mg/dL (0.2-1.2); Calc. Creatinine Clearance 0 mL/min (70-130); Calcium 8.7 mg/dL (7.8-10.44); Carbon Dioxide 25 mmol/L (22-29); Chloride 96 mmol/L (98-107); Estimated GFR-MDRD Greater than 90; Globulin 2.8 g/dL (2.4-3.5); Glucose 120 mg/dL (70-105); Lipase 39 U/L (8-78); Potassium 3.7 mmol/L (3.5-5.1); Protein, Total 6.8 g/dL (6.0-8.3); Sodium 129 mmol/L (136-145)
== END 2019-03-17 20:36 | disposition home or self-care (01) ==
LOC: ERS 17:29
DX: R07.9 Chest pain, unspecified (principal); E11.9 Type 2 diabetes mellitus without complications; E78.5 Hyperlipidemia, unspecified; E78.00 Pure hypercholesterolemia, unspecified; F41.9 Anxiety disorder, unspecified; F31.9 Bipolar disorder, unspecified; F17.210 Nicotine dependence, cigarettes, uncomplicated; Z79.899 Other long term (current) drug therapy
CPT/HCPCS: 36415; 80053; 83690; 84484; 85025; 93005

== ENCOUNTER 2019-10-12 02:43 | Emergency (ER) | payer OTHER ==
[2019-10-12 03:52] LABS: #Basophils 0.1 thou/uL (0.0-0.2); #Eosinphils 0.2 thou/uL (0.0-0.7); #Lymphocytes 1.3 thou/uL (1.20-3.40); #Neutrophils 4.6 thou/uL (1.40-6.50); %Eosinophils 2.4 % (0.0-10.0); %Lymphocytes 18.3 % (21.0-51.0); %Monocytes 13.8 % (0.0-10.0); %Neutrophils 64.5 % (42.0-75.0); ALT (SGPT) 21 U/L (8-55); AST (SGOT) 28 U/L (5-34); Albumin 4.1 g/dL (3.5-5.0); Alkaline Phosphatase 82 U/L (40-110); Anion Gap 14 mmol/L (10-20); BUN (Urea Nitrogen) 10 mg/dL (8.9-20.6); Bilirubin, Total 0.2 mg/dL (0.2-1.2); CK (CPK) 597 U/L (30-200); Calc. Creatinine Clearance 0 mL/min (70-130); Calcium 9.3 mg/dL (7.8-10.44); Carbon Dioxide 22 mmol/L (22-29); Chloride 102 mmol/L (98-107); Estimated GFR-MDRD Greater than 90; Globulin 2.8 g/dL (2.4-3.5); Glucose 107 mg/dL (70-105); Mean Corpuscular HGB CONC 31.7 g/dL (32.0-36.0); Mean Corpuscular Hemoglobin 26.7 pg (27.0-31.0); Mean Corpuscular Volume 84.3 fL (78.0-98.0); Mean Platelet Volume 8.7 fL (7.4-10.4); Platelet Count 456 thou/uL (130-400); Potassium 4.1 mmol/L (3.5-5.1); Protein, Total 6.9 g/dL (6.0-8.3); RBC Distribution Width 16.8 % (11.5-14.5); Red Blood Cell (RBC) Count 3.74 mill/uL (4.70-6.10); Sodium 134 mmol/L (136-145); White Blood Cell (WBC) Count 7.2 thou/uL (4.8-10.8)
--- NOTE | 2019-10-12 07:46 | RAD ---
RADIOGRAPH CHEST 1 VIEW: DATE: 10/12/2019 HISTORY: 48-year-old male with chest pain COMPARISON: 08/20/2019 FINDINGS: There are no airspace densities, pulmonary edema, pneumothorax, or cardiomegaly. The lateral costophr enic angles are sharp. Again noted is the right-sided implantable vascular access port. Mediastinal shadow and hilar shadows are within normal limits. The well-circumscribed mass at the right lower bharti g zone is currently approximately 4.2 x 2.9 cm. There has been no other interval change. IMPRESSION: 1. No acute cardiopulmonary findings. 2. Minimal interval growth of right pulmonary mass
== END 2019-10-12 04:58 | disposition left against medical advice (07) ==
LOC: ERS 02:43
DX: R07.89 Other chest pain (principal); E11.9 Type 2 diabetes mellitus without complications; E78.5 Hyperlipidemia, unspecified; E78.00 Pure hypercholesterolemia, unspecified; F41.9 Anxiety disorder, unspecified; F31.9 Bipolar disorder, unspecified; F17.210 Nicotine dependence, cigarettes, uncomplicated; Z79.899 Other long term (current) drug therapy
CPT/HCPCS: 36415; 71045; 80053; 82550; 84484; 85025; 93005

== ENCOUNTER 2021-02-11 12:13 | Emergency (ER) | payer OTHER ==
[~2021-02-11 12:13] MED LIST changes: -Acetaminophen 500 MG TAB ONE; -Aspirin 81 mg Enteric Coated Tablet ONE; -Atorvastatin Calcium 10 MG TAB PO SCH; -Ferrous Sulfate 325 MG TAB PO SCH; +Iopamidol-370 76% 500 ML 1 ML ONE; -Lorazepam 1 MG TAB ONE; -Lorazepam 2 MG/ML VIAL ONE; -SAPHRIS 10 MG SL SCH; -SENEXON PO SCH; -Senokot S 8.6-50 MG TAB PO SCH; -clonazePAM 1 MG TAB ONE; -clonazePAM 1 MG TAB PO SCH; -metFORMIN 500 MG TAB PO SCH; -risperiDONE 0.25 MG TAB PO SCH; -risperiDONE 1 MG TAB ONE
[2021-02-11 12:53] LABS: #Basophils 0.1 thou/uL (0.0-0.2); #Eosinphils 0.1 thou/uL (0.0-0.7); #Lymphocytes 1.9 thou/uL (1.20-3.40); #Monocytes 1.1 thou/uL (0.11-0.59); #Neutrophils 4.6 thou/uL (1.40-6.50); %Basophils 0.8 % (0.0-1.0); %Eosinophils 1.8 % (0.0-10.0); %Lymphocytes 24.3 % (21.0-51.0); %Monocytes 14.1 % (0.0-10.0); Hemoglobin 7.9 g/dL (14.0-18.0); Mean Corpuscular HGB CONC 31.7 g/dL (32.0-36.0); Mean Corpuscular Hemoglobin 24.6 pg (27.0-31.0); Mean Corpuscular Volume 77.8 fL (78.0-98.0); Mean Platelet Volume 7.3 fL (7.4-10.4); Platelet Count 408 thou/uL (130-400); RBC Distribution Width 18.1 % (11.5-14.5); Red Blood Cell (RBC) Count 3.22 mill/uL (4.70-6.10); White Blood Cell (WBC) Count 7.8 thou/uL (4.8-10.8)
[2021-02-11 13:20] LABS: CKMB 1.1 ng/mL (0-6.6)
[2021-02-11 13:24] LABS: ALT (SGPT) 11 U/L (8-55); AST (SGOT) 17 U/L (5-34); Albumin 3.6 g/dL (3.5-5.0); Alkaline Phosphatase 72 U/L (40-110); Anion Gap 14 mmol/L (10-20); BUN (Urea Nitrogen) 14 mg/dL (8.4-25.7); Bilirubin, Total 0.3 mg/dL (0.2-1.2); Calc. Creatinine Clearance 0 mL/min (70-130); Calcium 9.3 mg/dL (7.8-10.44); Carbon Dioxide 25 mmol/L (22-29); Chloride 97 mmol/L (98-107); Globulin 4.2 g/dL (2.4-3.5); Glucose 117 mg/dL (70-105); Potassium 3.4 mmol/L (3.5-5.1); Protein, Total 7.8 g/dL (6.0-8.3); Sodium 133 mmol/L (136-145)
[2021-02-11] MEDS ORDERED: Ketorolac Tromethamine 30 MG/ML VIAL ONE (14:31)
== END 2021-02-11 15:40 | disposition home or self-care (01) ==
LOC: ERS 12:13
DX: D63.8 Anemia in other chronic diseases classified elsewhere (principal); E78.5 Hyperlipidemia, unspecified; E78.00 Pure hypercholesterolemia, unspecified; E11.9 Type 2 diabetes mellitus without complications; F17.210 Nicotine dependence, cigarettes, uncomplicated; Z79.899 Other long term (current) drug therapy
CPT/HCPCS: 36415; 71045; 71275; 80053; 82553; 84484; 85025; 93005; 96374; J1885; Q9967

== ENCOUNTER 2021-02-15 19:40 | Inpatient (IN) | payer OTHER ==
[~2021-02-15 19:40] MED LIST changes: +Iopamidol 370 76% 100 ML VIAL ONE; -Iopamidol-370 76% 500 ML 1 ML ONE
[2021-02-15 20:27] LABS: #Eosinphils 0.3 thou/uL (0.0-0.7); #Lymphocytes 1.2 thou/uL (1.20-3.40); #Monocytes 1.3 thou/uL (0.11-0.59); %Basophils 0.2 % (0.0-1.0); %Eosinophils 2.9 % (0.0-10.0); %Lymphocytes 10.1 % (21.0-51.0); %Monocytes 10.7 % (0.0-10.0); %Neutrophils 76.1 % (42.0-75.0); Hemoglobin 8.9 g/dL (14.0-18.0); Mean Corpuscular HGB CONC 32.7 g/dL (32.0-36.0); Mean Corpuscular Volume 79.5 fL (78.0-98.0); Mean Platelet Volume 7.6 fL (7.4-10.4); Platelet Count 394 thou/uL (130-400); White Blood Cell (WBC) Count 11.8 thou/uL (4.8-10.8)
[2021-02-15 20:49] LABS: Albumin 3.5 g/dL (3.5-5.0)
[2021-02-15 20:50] LABS: Chloride 98 mmol/L (98-107); Sodium 135 mmol/L (136-145)
[2021-02-15 20:51] LABS: Calcium 8.8 mg/dL (7.8-10.44); Glucose 125 mg/dL (70-105)
[2021-02-15 20:52] LABS: Globulin 3.6 g/dL (2.4-3.5); Protein, Total 7.1 g/dL (6.0-8.3)
[2021-02-15 20:53] LABS: Anion Gap 14 mmol/L (10-20); Bilirubin, Total 0.3 mg/dL (0.2-1.2); Carbon Dioxide 27 mmol/L (22-29)
[2021-02-15 20:54] LABS: Alkaline Phosphatase 70 U/L (40-110)
[2021-02-15 20:55] LABS: Calc. Creatinine Clearance 0 mL/min (70-130)
[2021-02-15 20:56] LABS: BUN (Urea Nitrogen) 11 mg/dL (8.4-25.7)
[2021-02-15 20:57] LABS: ALT (SGPT) 13 U/L (8-55); AST (SGOT) 19 U/L (5-34)
[2021-02-15 23:38] VITALS: BMI 25.6
[2021-02-16] MEDS ORDERED: Calcium Carbonate 500 MG ChewTAB PO PRN (00:02)
[2021-02-16] MEDS ORDERED: Bisacodyl 5 MG TAB PO PRN (00:02)
[2021-02-16] MEDS ORDERED: Senokot S 8.6-50 MG TAB PO PRN (00:02)
[2021-02-16] MEDS ORDERED: Ondansetron ODT 4 MG TAB PO PRN (00:02)
[2021-02-16] MEDS ORDERED: Bisacodyl 10 MG SUPP PR PRN (00:02)
[2021-02-16] MEDS ORDERED: Ondansetron PF 4 MG/2 ML Vial IVP PRN (00:02)
[2021-02-16 00:28] LABS: SARS-CoV-2 NAA Rapid Test DETECTED (NotDetected)
[2021-02-16] MEDS: HYDROcodone/Acetaminophen 10/325 mg Tablet PO PRN ×4 (00:41→23:18)
[2021-02-16] MEDS ORDERED: Polyethylene Glycol 3350 17 GM Packet PO PRN (01:20)
[2021-02-16] MEDS: Melatonin 3 MG TAB PO PRN ×2 (02:29→22:08)
[2021-02-16 05:36] LABS: #Eosinphils 0.6 thou/uL (0.0-0.7); #Lymphocytes 2.3 thou/uL (1.20-3.40); #Monocytes 1.1 thou/uL (0.11-0.59); #Neutrophils 6.2 thou/uL (1.40-6.50); %Basophils 0.3 % (0.0-1.0); %Eosinophils 6.3 % (0.0-10.0); %Lymphocytes 22.5 % (21.0-51.0); %Monocytes 10.8 % (0.0-10.0); %Neutrophils 60.1 % (42.0-75.0); Hemoglobin 9.1 g/dL (14.0-18.0); Mean Corpuscular HGB CONC 32.5 g/dL (32.0-36.0); Mean Corpuscular Volume 80.1 fL (78.0-98.0); Mean Platelet Volume 7.5 fL (7.4-10.4); Platelet Count 425 thou/uL (130-400); Red Blood Cell (RBC) Count 3.51 mill/uL (4.70-6.10); White Blood Cell (WBC) Count 10.3 thou/uL (4.8-10.8)
[2021-02-16 05:55] LABS: Hemoglobin A1c 5.4 % (4.0-6.0)
[2021-02-16 05:56] LABS: Anion Gap 11 mmol/L (10-20); BUN (Urea Nitrogen) 12 mg/dL (8.4-25.7); Calc. Creatinine Clearance 111 mL/min (70-130); Calcium 9.5 mg/dL (7.8-10.44); Carbon Dioxide 27 mmol/L (22-29); Chloride 102 mmol/L (98-107); Glucose 89 mg/dL (70-105); Potassium 4.2 mmol/L (3.5-5.1); Sodium 136 mmol/L (136-145)
[2021-02-16] MEDS: Divalproex Sodium DR 500 MG TAB PO SCH ×2 (09:27→20:24)
[2021-02-16] MEDS: Ferrous Sulfate 325 MG TAB PO SCH ×2 (09:27→16:20)
[2021-02-16] MEDS: Lisinopril 20 MG TAB PO SCH (09:27)
[2021-02-16] MEDS: Tamsulosin HCl 0.4 MG CAP PO SCH (09:27)
[2021-02-16] MEDS: busPIRone HCl 5 MG TAB PO SCH (09:27)
[2021-02-16] MEDS: Dexamethasone 4 MG TAB PO SCH (09:28)
[2021-02-16] MEDS ORDERED: REMDESIVIR 200 MG in Sodium Chloride 0.9% 250 ML 210 ML IV SCH (11:30)
[2021-02-16] MEDS: Atorvastatin Calcium 40 MG TAB PO SCH (20:24)
[2021-02-16] MEDS: Enoxaparin Sodium 40 MG/0.4 ML SYRINGE SC SCH (20:24)
[2021-02-16] MEDS: Acetaminophen 500 MG TAB PO PRN (20:25)
[2021-02-16] MEDS: Mirtazapine 15 MG TAB PO SCH (20:25)
[2021-02-16] MEDS: risperiDONE 1 MG TAB PO SCH (20:25)
[2021-02-16] MEDS ORDERED: hydrOXYzine Pamoate 25 mg Capsule PO SCH (21:30)
[2021-02-17] MEDS: HYDROcodone/Acetaminophen 10/325 mg Tablet PO PRN ×4 (05:27→23:15)
[2021-02-17 05:36] LABS: #Eosinphils 0.1 thou/uL (0.0-0.7); #Lymphocytes 2.6 thou/uL (1.20-3.40); #Monocytes 1.1 thou/uL (0.11-0.59); #Neutrophils 8.4 thou/uL (1.40-6.50); %Eosinophils 1.2 % (0.0-10.0); %Monocytes 8.8 % (0.0-10.0); Hemoglobin 9.3 g/dL (14.0-18.0); Mean Corpuscular HGB CONC 31.3 g/dL (32.0-36.0); Mean Corpuscular Hemoglobin 25.5 pg (27.0-31.0); Mean Corpuscular Volume 81.2 fL (78.0-98.0); Mean Platelet Volume 7.3 fL (7.4-10.4); Platelet Count 494 thou/uL (130-400); RBC Distribution Width 18.2 % (11.5-14.5); Red Blood Cell (RBC) Count 3.66 mill/uL (4.70-6.10); White Blood Cell (WBC) Count 12.2 thou/uL (4.8-10.8)
[2021-02-17 06:03] LABS: ALT (SGPT) 16 U/L (8-55); AST (SGOT) 18 U/L (5-34); Albumin 3.3 g/dL (3.5-5.0); Alkaline Phosphatase 71 U/L (40-110); Anion Gap 15 mmol/L (10-20); BUN (Urea Nitrogen) 15 mg/dL (8.4-25.7); Bilirubin, Total 0.2 mg/dL (0.2-1.2); Calc. Creatinine Clearance 117 mL/min (70-130); Calcium 9.5 mg/dL (7.8-10.44); Carbon Dioxide 23 mmol/L (22-29); Chloride 102 mmol/L (98-107); Globulin 4.4 g/dL (2.4-3.5); Glucose 97 mg/dL (70-105); Potassium 4.1 mmol/L (3.5-5.1); Protein, Total 7.7 g/dL (6.0-8.3); Sodium 136 mmol/L (136-145)
[2021-02-17] MEDS: REMDESIVIR 100 MG in Sodium Chloride 0.9% 250 ML 230 ML IV SCH (09:28)
[2021-02-17] MEDS: Divalproex Sodium DR 500 MG TAB PO SCH ×2 (09:29→20:47)
[2021-02-17] MEDS: Lisinopril 20 MG TAB PO SCH (09:29)
[2021-02-17] MEDS: Dexamethasone 4 MG TAB PO SCH (09:30)
[2021-02-17] MEDS: busPIRone HCl 5 MG TAB PO SCH (09:30)
[2021-02-17] MEDS: Tamsulosin HCl 0.4 MG CAP PO SCH (09:31)
[2021-02-17] MEDS: Ferrous Sulfate 325 MG TAB PO SCH ×2 (09:31→17:46)
[2021-02-17] MEDS: Acetaminophen 500 MG TAB PO PRN (19:23)
[2021-02-17] MEDS: Atorvastatin Calcium 40 MG TAB PO SCH (20:47)
[2021-02-17] MEDS: Mirtazapine 15 MG TAB PO SCH (20:48)
[2021-02-17] MEDS: Enoxaparin Sodium 40 MG/0.4 ML SYRINGE SC SCH (20:48)
[2021-02-17] MEDS: risperiDONE 1 MG TAB PO SCH (20:48)
[2021-02-17] MEDS: Melatonin 3 MG TAB PO PRN (23:14)
[2021-02-18] MEDS: HYDROcodone/Acetaminophen 10/325 mg Tablet PO PRN ×3 (05:30→18:16)
[2021-02-18 06:01] LABS: #Eosinphils 0.1 thou/uL (0.0-0.7); #Lymphocytes 2.5 thou/uL (1.20-3.40); #Monocytes 1.3 thou/uL (0.11-0.59); #Neutrophils 9.5 thou/uL (1.40-6.50); %Basophils 0.1 % (0.0-1.0); %Lymphocytes 18.7 % (21.0-51.0); %Monocytes 9.5 % (0.0-10.0); %Neutrophils 70.7 % (42.0-75.0); Hemoglobin 9.6 g/dL (14.0-18.0); Mean Corpuscular HGB CONC 31.6 g/dL (32.0-36.0); Mean Corpuscular Hemoglobin 25.6 pg (27.0-31.0); Mean Corpuscular Volume 80.9 fL (78.0-98.0); Mean Platelet Volume 7.3 fL (7.4-10.4); Platelet Count 539 thou/uL (130-400); RBC Distribution Width 18.3 % (11.5-14.5); Red Blood Cell (RBC) Count 3.73 mill/uL (4.70-6.10); White Blood Cell (WBC) Count 13.4 thou/uL (4.8-10.8)
[2021-02-18 06:26] LABS: ALT (SGPT) 22 U/L (8-55); AST (SGOT) 18 U/L (5-34); Albumin 3.4 g/dL (3.5-5.0); Alkaline Phosphatase 75 U/L (40-110); Anion Gap 13 mmol/L (10-20); BUN (Urea Nitrogen) 15 mg/dL (8.4-25.7); Bilirubin, Total Less than 0.2 mg/dL (0.2-1.2); Calc. Creatinine Clearance 107 mL/min (70-130); Carbon Dioxide 25 mmol/L (22-29); Chloride 103 mmol/L (98-107); Globulin 4.4 g/dL (2.4-3.5); Glucose 168 mg/dL (70-105); Potassium 4.2 mmol/L (3.5-5.1); Protein, Total 7.8 g/dL (6.0-8.3); Sodium 137 mmol/L (136-145)
[2021-02-18] MEDS ORDERED: Prevnar 13-Val Conj/PF 0.5 ML SYRINGE IM ONE (09:00)
[2021-02-18] MEDS ORDERED: FLU VACC QS2021-22(6MOS UP)/PF 60 MCG/0.5 ML SYRINGE IM ONE (09:00)
[2021-02-18] MEDS: Lisinopril 20 MG TAB PO SCH (09:10)
[2021-02-18] MEDS: Divalproex Sodium DR 500 MG TAB PO SCH ×2 (09:10→21:26)
[2021-02-18] MEDS: Dexamethasone 4 MG TAB PO SCH (09:11)
[2021-02-18] MEDS: Tamsulosin HCl 0.4 MG CAP PO SCH (09:11)
[2021-02-18] MEDS: Ferrous Sulfate 325 MG TAB PO SCH ×2 (09:11→18:15)
[2021-02-18] MEDS: REMDESIVIR 100 MG in Sodium Chloride 0.9% 250 ML 230 ML IV SCH (09:18)
[2021-02-18] MEDS: busPIRone HCl 5 MG TAB PO SCH (09:18)
[2021-02-18] MEDS: Enoxaparin Sodium 40 MG/0.4 ML SYRINGE SC SCH (21:22)
[2021-02-18] MEDS: Acetaminophen 500 MG TAB PO PRN (21:23)
[2021-02-18] MEDS: Melatonin 3 MG TAB PO PRN (21:24)
[2021-02-18] MEDS: Atorvastatin Calcium 40 MG TAB PO SCH (21:24)
[2021-02-18] MEDS: Mirtazapine 15 MG TAB PO SCH (21:24)
[2021-02-18] MEDS: risperiDONE 1 MG TAB PO SCH (21:25)
[2021-02-19] MEDS: HYDROcodone/Acetaminophen 10/325 mg Tablet PO PRN ×4 (00:11→20:36)
[2021-02-19 05:26] LABS: #Lymphocytes 2.8 thou/uL (1.20-3.40); #Monocytes 1.3 thou/uL (0.11-0.59); #Neutrophils 9.6 thou/uL (1.40-6.50); %Basophils 0.1 % (0.0-1.0); %Eosinophils 0.3 % (0.0-10.0); %Lymphocytes 20.5 % (21.0-51.0); %Monocytes 9.4 % (0.0-10.0); %Neutrophils 69.7 % (42.0-75.0); Hemoglobin 9.8 g/dL (14.0-18.0); Mean Corpuscular HGB CONC 31.6 g/dL (32.0-36.0); Mean Corpuscular Hemoglobin 25.8 pg (27.0-31.0); Mean Corpuscular Volume 81.6 fL (78.0-98.0); Mean Platelet Volume 7.2 fL (7.4-10.4); Platelet Count 539 thou/uL (130-400); RBC Distribution Width 18.1 % (11.5-14.5); White Blood Cell (WBC) Count 13.7 thou/uL (4.8-10.8)
[2021-02-19 05:56] LABS: ALT (SGPT) 30 U/L (8-55); AST (SGOT) 19 U/L (5-34); Albumin 3.4 g/dL (3.5-5.0); Alkaline Phosphatase 74 U/L (40-110); Anion Gap 14 mmol/L (10-20); BUN (Urea Nitrogen) 18 mg/dL (8.4-25.7); Bilirubin, Total 0.2 mg/dL (0.2-1.2); Calc. Creatinine Clearance 111 mL/min (70-130); Calcium 9.9 mg/dL (7.8-10.44); Carbon Dioxide 24 mmol/L (22-29); Chloride 104 mmol/L (98-107); Globulin 4.2 g/dL (2.4-3.5); Glucose 108 mg/dL (70-105); Protein, Total 7.6 g/dL (6.0-8.3); Sodium 138 mmol/L (136-145)
[2021-02-19] MEDS: REMDESIVIR 100 MG in Sodium Chloride 0.9% 250 ML 230 ML IV SCH (09:21)
[2021-02-19] MEDS: Divalproex Sodium DR 500 MG TAB PO SCH ×2 (12:58→20:35)
[2021-02-19] MEDS: busPIRone HCl 5 MG TAB PO SCH (12:59)
[2021-02-19] MEDS: Ferrous Sulfate 325 MG TAB PO SCH ×2 (13:00→16:35)
[2021-02-19] MEDS: Tamsulosin HCl 0.4 MG CAP PO SCH (13:00)
[2021-02-19] MEDS: Dexamethasone 4 MG TAB PO SCH (13:00)
[2021-02-19] MEDS: Lisinopril 20 MG TAB PO SCH (13:01)
[2021-02-19] MEDS: Enoxaparin Sodium 40 MG/0.4 ML SYRINGE SC SCH (20:34)
[2021-02-19] MEDS: Melatonin 3 MG TAB PO PRN (20:35)
[2021-02-19] MEDS: Mirtazapine 15 MG TAB PO SCH (20:35)
[2021-02-19] MEDS: risperiDONE 1 MG TAB PO SCH (20:35)
[2021-02-19] MEDS: Atorvastatin Calcium 40 MG TAB PO SCH (20:37)
[2021-02-20] MEDS: Acetaminophen 500 MG TAB PO PRN (00:36)
[2021-02-20] MEDS: HYDROcodone/Acetaminophen 10/325 mg Tablet PO PRN ×5 (02:29→21:33)
[2021-02-20 05:11] LABS: #Eosinphils 0.1 thou/uL (0.0-0.7); #Lymphocytes 3.3 thou/uL (1.20-3.40); #Monocytes 1.7 thou/uL (0.11-0.59); #Neutrophils 9.1 thou/uL (1.40-6.50); %Basophils 0.1 % (0.0-1.0); %Eosinophils 0.5 % (0.0-10.0); %Lymphocytes 23.1 % (21.0-51.0); %Monocytes 11.8 % (0.0-10.0); %Neutrophils 64.4 % (42.0-75.0); Hemoglobin 10.2 g/dL (14.0-18.0); Mean Corpuscular HGB CONC 32.1 g/dL (32.0-36.0); Mean Corpuscular Hemoglobin 25.9 pg (27.0-31.0); Mean Corpuscular Volume 80.6 fL (78.0-98.0); Mean Platelet Volume 7.2 fL (7.4-10.4); Platelet Count 582 thou/uL (130-400); RBC Distribution Width 18.3 % (11.5-14.5); Red Blood Cell (RBC) Count 3.93 mill/uL (4.70-6.10); White Blood Cell (WBC) Count 14.1 thou/uL (4.8-10.8)
[2021-02-20 06:01] LABS: ALT (SGPT) 43 U/L (8-55); AST (SGOT) 27 U/L (5-34); Albumin 3.6 g/dL (3.5-5.0); Alkaline Phosphatase 84 U/L (40-110); Anion Gap 14 mmol/L (10-20); BUN (Urea Nitrogen) 16 mg/dL (8.4-25.7); Bilirubin, Total Less than 0.2 mg/dL (0.2-1.2); Calc. Creatinine Clearance 117 mL/min (70-130); Calcium 9.8 mg/dL (7.8-10.44); Carbon Dioxide 24 mmol/L (22-29); Chloride 100 mmol/L (98-107); Globulin 4.5 g/dL (2.4-3.5); Glucose 115 mg/dL (70-105); Potassium 3.8 mmol/L (3.5-5.1); Protein, Total 8.1 g/dL (6.0-8.3); Sodium 134 mmol/L (136-145)
[2021-02-20] MEDS: Divalproex Sodium DR 500 MG TAB PO SCH ×2 (08:31→21:33)
[2021-02-20] MEDS: Dexamethasone 4 MG TAB PO SCH (08:32)
[2021-02-20] MEDS: busPIRone HCl 5 MG TAB PO SCH (08:32)
[2021-02-20] MEDS: Tamsulosin HCl 0.4 MG CAP PO SCH (08:32)
[2021-02-20] MEDS: Ferrous Sulfate 325 MG TAB PO SCH ×2 (08:32→17:55)
[2021-02-20] MEDS: Lisinopril 20 MG TAB PO SCH (08:34)
[2021-02-20] MEDS: REMDESIVIR 100 MG in Sodium Chloride 0.9% 250 ML 230 ML IV SCH (09:12)
[2021-02-20] MEDS ORDERED: Apixaban 2.5 MG TAB PO SCH ×3 (09:45→21:00)
[2021-02-20] MEDS: Mirtazapine 15 MG TAB PO SCH (21:34)
[2021-02-20] MEDS: Melatonin 3 MG TAB PO PRN (21:34)
[2021-02-20] MEDS: risperiDONE 1 MG TAB PO SCH (21:34)
[2021-02-20] MEDS: Atorvastatin Calcium 40 MG TAB PO SCH (21:35)
[2021-02-20] MEDS: Apixaban 2.5 MG TAB PO SCH (21:35)
[2021-02-21] MEDS: HYDROcodone/Acetaminophen 10/325 mg Tablet PO PRN ×2 (01:20→05:23)
[2021-02-21 05:46] LABS: #Eosinphils 0.2 thou/uL (0.0-0.7); #Lymphocytes 3.1 thou/uL (1.20-3.40); #Monocytes 1.4 thou/uL (0.11-0.59); #Neutrophils 7.8 thou/uL (1.40-6.50); %Basophils 0.3 % (0.0-1.0); %Eosinophils 1.4 % (0.0-10.0); %Lymphocytes 25.1 % (21.0-51.0); %Monocytes 11.2 % (0.0-10.0); Hemoglobin 9.9 g/dL (14.0-18.0); Mean Corpuscular Hemoglobin 25.7 pg (27.0-31.0); Mean Corpuscular Volume 80.3 fL (78.0-98.0); Mean Platelet Volume 7.3 fL (7.4-10.4); Platelet Count 578 thou/uL (130-400); RBC Distribution Width 18.5 % (11.5-14.5); Red Blood Cell (RBC) Count 3.83 mill/uL (4.70-6.10); White Blood Cell (WBC) Count 12.5 thou/uL (4.8-10.8)
[2021-02-21 06:10] LABS: ALT (SGPT) 46 U/L (8-55); AST (SGOT) 21 U/L (5-34); Albumin 3.4 g/dL (3.5-5.0); Alkaline Phosphatase 73 U/L (40-110); Anion Gap 18 mmol/L (10-20); BUN (Urea Nitrogen) 16 mg/dL (8.4-25.7); Bilirubin, Total 0.2 mg/dL (0.2-1.2); Calc. Creatinine Clearance 120 mL/min (70-130); Calcium 9.7 mg/dL (7.8-10.44); Carbon Dioxide 22 mmol/L (22-29); Chloride 100 mmol/L (98-107); Globulin 4.1 g/dL (2.4-3.5); Glucose 110 mg/dL (70-105); Protein, Total 7.5 g/dL (6.0-8.3); Sodium 136 mmol/L (136-145)
[2021-02-21] MEDS: Divalproex Sodium DR 500 MG TAB PO SCH (08:51)
[2021-02-21] MEDS: Tamsulosin HCl 0.4 MG CAP PO SCH (08:52)
[2021-02-21] MEDS: Ferrous Sulfate 325 MG TAB PO SCH (08:53)
[2021-02-21] MEDS: Apixaban 2.5 MG TAB PO SCH (08:53)
[2021-02-21] MEDS: Dexamethasone 4 MG TAB PO SCH (08:53)
[2021-02-21] MEDS: Lisinopril 20 MG TAB PO SCH (08:53)
[2021-02-21] MEDS: busPIRone HCl 5 MG TAB PO SCH (08:54)
[2021-02-21 14:08] VITALS: BP 106/58; TEMP 98.8
== END 2021-02-21 14:35 | disposition home or self-care (01) | DRG 177 ==
LOC: ERS 19:40 → 2NO 21:35 → OBSVTOIN 02-16 09:19 → 2NO 02-18 20:25
PROVIDERS: ADMIT Family Medicine; ATTEND Family Medicine
PROC: 8E0ZXY6 Isolation (ICD-10-PCS; principal; 2021-02-16)
PROC: XW033E5 Introduction of Remdesivir Anti-infective into Peripheral Vein, Percutaneous Approach, New Technology Group 5 (ICD-10-PCS; 2021-02-16)
PROC: 3E0DX3Z Introduction of Anti-inflammatory into Mouth and Pharynx, External Approach (ICD-10-PCS; 2021-02-16)
DX: U07.1 COVID-19 (principal); I26.99 Other pulmonary embolism without acute cor pulmonale; J96.01 Acute respiratory failure with hypoxia; C78.02 Secondary malignant neoplasm of left lung; C78.01 Secondary malignant neoplasm of right lung; C41.9 Malignant neoplasm of bone and articular cartilage, unspecified; C80.1 Malignant (primary) neoplasm, unspecified; I10 Essential (primary) hypertension; E11.9 Type 2 diabetes mellitus without complications; F17.210 Nicotine dependence, cigarettes, uncomplicated; E78.5 Hyperlipidemia, unspecified; E78.00 Pure hypercholesterolemia, unspecified; F41.9 Anxiety disorder, unspecified; F31.9 Bipolar disorder, unspecified; F20.9 Schizophrenia, unspecified; D64.81 Anemia due to antineoplastic chemotherapy; T45.1X5A Adverse effect of antineoplastic and immunosuppressive drugs, initial encounter; Z88.8 Allergy status to other drugs, medicaments and biological substances; Z79.899 Other long term (current) drug therapy; Z89.612 Acquired absence of left leg above knee
CPT/HCPCS: 36415; 36416; 71275; 80048; 80053; 83036; 84484; 85025; 93005; 93010; 94760; G0378; J1642; J1650; J7050; J8540; Q0177; Q9967; U0002

== ENCOUNTER 2021-03-02 23:11 | Emergency (ER) | payer OTHER ==
[2021-03-02] MEDS ORDERED: Ondansetron ODT 4 MG TAB ONE (23:58)
[2021-03-02] MEDS ORDERED: Ketorolac Tromethamine 30 MG/ML VIAL ONE (23:58)
[2021-03-03] MEDS ORDERED: Acetaminophen 500 MG TAB ONE (00:03)
== END 2021-03-03 02:11 | disposition home or self-care (01) ==
LOC: ERS 23:11
DX: R05.9 Cough, unspecified (principal); Z20.822 Contact with and (suspected) exposure to COVID-19; E11.9 Type 2 diabetes mellitus without complications; E78.5 Hyperlipidemia, unspecified; E78.00 Pure hypercholesterolemia, unspecified; F17.210 Nicotine dependence, cigarettes, uncomplicated
CPT/HCPCS: 96372; 99284; J1885; Q0162

== ENCOUNTER 2021-03-29 02:46 | Emergency (ER) | payer OTHER ==
[2021-03-29 03:56] LABS: #Basophils 0.1 thou/uL (0.0-0.2); #Eosinphils 0.9 thou/uL (0.0-0.7); #Lymphocytes 2.8 thou/uL (1.20-3.40); #Monocytes 1.3 thou/uL (0.11-0.59); #Neutrophils 8.9 thou/uL (1.40-6.50); %Basophils 0.6 % (0.0-1.0); %Eosinophils 6.6 % (0.0-10.0); %Neutrophils 63.8 % (42.0-75.0); Hemoglobin 8.3 g/dL (14.0-18.0); Mean Corpuscular HGB CONC 31.8 g/dL (32.0-36.0); Mean Corpuscular Hemoglobin 25.5 pg (27.0-31.0); Mean Corpuscular Volume 80.1 fL (78.0-98.0); Mean Platelet Volume 7.3 fL (7.4-10.4); Platelet Count 471 thou/uL (130-400); Red Blood Cell (RBC) Count 3.26 mill/uL (4.70-6.10); White Blood Cell (WBC) Count 13.9 thou/uL (4.8-10.8)
[2021-03-29 04:09] LABS: ALT (SGPT) 18 U/L (8-55); AST (SGOT) 18 U/L (5-34); Albumin 3.6 g/dL (3.5-5.0); Alkaline Phosphatase 80 U/L (40-110); Anion Gap 15 mmol/L (10-20); BUN (Urea Nitrogen) 21 mg/dL (8.4-25.7); Bilirubin, Total 0.2 mg/dL (0.2-1.2); Calc. Creatinine Clearance 0 mL/min (70-130); Calcium 9.5 mg/dL (7.8-10.44); Chloride 99 mmol/L (98-107); Globulin 4.5 g/dL (2.4-3.5); Glucose 148 mg/dL (70-105); Potassium 3.8 mmol/L (3.5-5.1); Protein, Total 8.1 g/dL (6.0-8.3); Sodium 134 mmol/L (136-145)
[2021-03-29 04:16] LABS: Carbon Dioxide 24 mmol/L (22-29)
[2021-03-29] MEDS ORDERED: Iopamidol 370 76% 100 ML VIAL ONE (09:19)
== END 2021-03-29 07:09 | disposition home or self-care (01) ==
LOC: ERS 02:46
DX: R53.1 Weakness (principal); D50.0 Iron deficiency anemia secondary to blood loss (chronic); I26.99 Other pulmonary embolism without acute cor pulmonale; E11.9 Type 2 diabetes mellitus without complications; E78.5 Hyperlipidemia, unspecified; E78.00 Pure hypercholesterolemia, unspecified; F17.210 Nicotine dependence, cigarettes, uncomplicated; Z85.118 Personal history of other malignant neoplasm of bronchus and lung; Z89.612 Acquired absence of left leg above knee
CPT/HCPCS: 36415; 71045; 71275; 80053; 84484; 85025; 93005; Q9967

== ENCOUNTER 2021-05-18 19:55 | Emergency (ER) | payer OTHER ==
[2021-05-18 20:32] LABS: #Eosinphils 1.1 thou/uL (0.0-0.7); #Lymphocytes 2.3 thou/uL (1.20-3.40); #Monocytes 1.3 thou/uL (0.11-0.59); #Neutrophils 8.9 thou/uL (1.40-6.50); %Basophils 0.1 % (0.0-1.0); %Eosinophils 8.1 % (0.0-10.0); %Lymphocytes 16.6 % (21.0-51.0); %Monocytes 9.4 % (0.0-10.0); %Neutrophils 65.7 % (42.0-75.0); Hemoglobin 7.7 g/dL (14.0-18.0); Mean Corpuscular HGB CONC 30.8 g/dL (32.0-36.0); Mean Corpuscular Hemoglobin 25.5 pg (27.0-31.0); Mean Corpuscular Volume 82.8 fL (78.0-98.0); Platelet Count 466 thou/uL (130-400); RBC Distribution Width 18.5 % (11.5-14.5); Red Blood Cell (RBC) Count 3.02 mill/uL (4.70-6.10); White Blood Cell (WBC) Count 13.5 thou/uL (4.8-10.8)
[2021-05-18] MEDS ORDERED: Ketorolac Tromethamine 30 MG/ML VIAL ONE (20:35)
[2021-05-18] MEDS ORDERED: Acetaminophen 500 MG TAB ONE (20:35)
[2021-05-18 20:51] LABS: ALT (SGPT) 23 U/L (8-55); AST (SGOT) 21 U/L (5-34); Albumin 3.2 g/dL (3.5-5.0); Alkaline Phosphatase 88 U/L (40-110); Anion Gap 16 mmol/L (10-20); BUN (Urea Nitrogen) 18 mg/dL (8.4-25.7); Bilirubin, Total Less than 0.2 mg/dL (0.2-1.2); Calc. Creatinine Clearance 0 mL/min (70-130); Calcium 8.7 mg/dL (7.8-10.44); Carbon Dioxide 22 mmol/L (22-29); Chloride 102 mmol/L (98-107); Globulin 3.8 g/dL (2.4-3.5); Glucose 101 mg/dL (70-105); Lipase 38 U/L (8-78); Potassium 4.1 mmol/L (3.5-5.1); Sodium 136 mmol/L (136-145)
[2021-05-18] MEDS ORDERED: Sucralfate 1 GM/10 ML UDCUP ONE (23:54)
== END 2021-05-18 23:50 | disposition home or self-care (01) ==
LOC: ERS 19:55
DX: R51.9 Headache, unspecified (principal); R07.89 Other chest pain; Z85.118 Personal history of other malignant neoplasm of bronchus and lung; E78.2 Mixed hyperlipidemia; E11.9 Type 2 diabetes mellitus without complications; F17.210 Nicotine dependence, cigarettes, uncomplicated
CPT/HCPCS: 36415; 70450; 71045; 80053; 83690; 84484; 85025; 93005; 96374; J1885

== ENCOUNTER 2021-06-07 23:24 | Emergency (ER) | payer OTHER ==
[2021-06-08 00:21] LABS: #Eosinphils 0.4 thou/uL (0.0-0.7); #Lymphocytes 2.2 thou/uL (1.20-3.40); #Monocytes 1.8 thou/uL (0.11-0.59); #Neutrophils 12.3 thou/uL (1.40-6.50); %Basophils 0.2 % (0.0-1.0); %Eosinophils 2.7 % (0.0-10.0); %Lymphocytes 13.1 % (21.0-51.0); %Monocytes 10.5 % (0.0-10.0); %Neutrophils 73.6 % (42.0-75.0); Hemoglobin 6.4 g/dL (14.0-18.0); Mean Corpuscular Hemoglobin 26.4 pg (27.0-31.0); Mean Corpuscular Volume 82.4 fL (78.0-98.0); Mean Platelet Volume 6.6 fL (7.4-10.4); Platelet Count 525 thou/uL (130-400); RBC Distribution Width 19.2 % (11.5-14.5); Red Blood Cell (RBC) Count 2.44 mill/uL (4.70-6.10); White Blood Cell (WBC) Count 16.8 thou/uL (4.8-10.8)
[2021-06-08] MEDS ORDERED: Metoclopramide HCl 10 MG TAB ONE (00:32)
[2021-06-08] MEDS ORDERED: Acetaminophen 325 MG TAB ONE (00:32)
[2021-06-08 00:38] LABS: ALT (SGPT) 12 U/L (8-55); AST (SGOT) 18 U/L (5-34); Albumin 2.9 g/dL (3.5-5.0); Alkaline Phosphatase 85 U/L (40-110); Anion Gap 15 mmol/L (10-20); BUN (Urea Nitrogen) 19 mg/dL (8.4-25.7); Bilirubin, Total 0.2 mg/dL (0.2-1.2); Calc. Creatinine Clearance 0 mL/min (70-130); Calcium 8.8 mg/dL (7.8-10.44); Carbon Dioxide 22 mmol/L (22-29); Chloride 100 mmol/L (98-107); Globulin 4.3 g/dL (2.4-3.5); Glucose 108 mg/dL (70-105); Potassium 3.5 mmol/L (3.5-5.1); Protein, Total 7.2 g/dL (6.0-8.3); Sodium 133 mmol/L (136-145)
== END 2021-06-08 04:47 | disposition home or self-care (01) ==
LOC: ERS 23:24
DX: D64.9 Anemia, unspecified (principal); E11.9 Type 2 diabetes mellitus without complications; E78.5 Hyperlipidemia, unspecified; F17.210 Nicotine dependence, cigarettes, uncomplicated
CPT/HCPCS: 36430; 71045; 80053; 85025; 86850; 86900; 86901; 94640; J7620; P9016

== ENCOUNTER 2021-06-19 20:08 | Emergency (ER) | payer OTHER ==
[2021-06-19] MEDS ORDERED: Metoclopramide HCl 10 MG/2 ML VIAL ONE (20:59)
[2021-06-19] MEDS ORDERED: Ketorolac Tromethamine 30 MG/ML VIAL ONE (20:59)
[2021-06-19 22:57] LABS: #Eosinphils 0.8 thou/uL (0.0-0.7); #Lymphocytes 2.2 thou/uL (1.20-3.40); #Monocytes 1.1 thou/uL (0.11-0.59); #Neutrophils 10.9 thou/uL (1.40-6.50); %Basophils 0.3 % (0.0-1.0); %Eosinophils 5.3 % (0.0-10.0); %Lymphocytes 14.9 % (21.0-51.0); %Neutrophils 72.5 % (42.0-75.0); Hemoglobin 6.9 g/dL (14.0-18.0); Mean Corpuscular HGB CONC 30.3 g/dL (32.0-36.0); Mean Corpuscular Hemoglobin 25.5 pg (27.0-31.0); Mean Corpuscular Volume 84.2 fL (78.0-98.0); Mean Platelet Volume 6.3 fL (7.4-10.4); Platelet Count 629 thou/uL (130-400); RBC Distribution Width 20.3 % (11.5-14.5); Red Blood Cell (RBC) Count 2.69 mill/uL (4.70-6.10)
[2021-06-19 23:15] LABS: ALT (SGPT) 8 U/L (8-55); AST (SGOT) 17 U/L (5-34); Alkaline Phosphatase 78 U/L (40-110); Anion Gap 13 mmol/L (10-20); BUN (Urea Nitrogen) 16 mg/dL (8.4-25.7); Bilirubin, Total 0.3 mg/dL (0.2-1.2); CK (CPK) 172 U/L (30-200); Calc. Creatinine Clearance 0 mL/min (70-130); Calcium 8.6 mg/dL (7.8-10.44); Carbon Dioxide 24 mmol/L (22-29); Chloride 104 mmol/L (98-107); Globulin 4.1 g/dL (2.4-3.5); Glucose 82 mg/dL (70-105); Potassium 3.7 mmol/L (3.5-5.1); Protein, Total 7.1 g/dL (6.0-8.3); Sodium 137 mmol/L (136-145)
[2021-06-19] MEDS ORDERED: Acetaminophen 500 MG TAB ONE (23:53)
[2021-06-20 00:01] LABS: Bilirubin Negative (Negative); Blood, Urine Negative (Negative); Clarity Clear (Clear); Glucose, Urine (Dipstick) Normal (Negative); Ketone, Urine Negative (Negative); Leukocyte Negative Leu/uL (Negative); Nitrite Negative (Negative); Protein, Urine (Dipstick) 20 mg/dL (Neg-Trace); Specific Gravity, Urine 1.028 (1.002-1.036); pH, Urine 6.5 (5.0-9.0)
[2021-06-20] MEDS ORDERED: diphenhydrAMINE 50 MG/ML VIAL ONE (00:47)
[2021-06-20] MEDS ORDERED: Magnesium 2 GM/50 ML BAG (IN WATER) ONE (00:47)
[2021-06-20] MEDS ORDERED: Albuterol Sulfate 1.25 MG/3 ML NEB ONE (03:01)
== END 2021-06-20 04:48 | disposition home or self-care (01) ==
LOC: ERS 20:08
DX: R51.9 Headache, unspecified (principal); D64.9 Anemia, unspecified; R82.998 Other abnormal findings in urine; E11.9 Type 2 diabetes mellitus without complications; E78.5 Hyperlipidemia, unspecified; F17.210 Nicotine dependence, cigarettes, uncomplicated
CPT/HCPCS: 36415; 36430; 51701; 70450; 80053; 81003; 82550; 85025; 86850; 86900; 86901; 96365; 96367; 96375; J1200; J1885; J2765; J3475; P9016

== ENCOUNTER 2021-06-22 07:00 | Emergency (ER) | payer OTHER ==
[2021-06-22] MEDS ORDERED: Ketorolac Tromethamine 30 MG/ML VIAL ONE (08:02)
== END 2021-06-22 08:15 | disposition home or self-care (01) ==
LOC: ERS 07:00
DX: M25.511 Pain in right shoulder (principal); E11.9 Type 2 diabetes mellitus without complications; E78.5 Hyperlipidemia, unspecified; F17.210 Nicotine dependence, cigarettes, uncomplicated
CPT/HCPCS: 96372; 99283; J1885

== ENCOUNTER 2021-06-24 10:36 | Emergency (ER) | payer OTHER ==
[2021-06-24] MEDS ORDERED: Ketorolac Tromethamine 30 MG/ML VIAL ONE (11:50)
[2021-06-24] MEDS ORDERED: Metoclopramide HCl 10 MG TAB ONE (11:51)
== END 2021-06-24 12:06 | disposition home or self-care (01) ==
LOC: ERS 10:36
DX: M25.511 Pain in right shoulder (principal); R51.9 Headache, unspecified; G89.29 Other chronic pain; E11.9 Type 2 diabetes mellitus without complications; E78.5 Hyperlipidemia, unspecified; F17.210 Nicotine dependence, cigarettes, uncomplicated
CPT/HCPCS: 96372; J1885

== ENCOUNTER 2021-07-13 16:56 | Emergency (ER) | payer OTHER ==
[2021-07-13 17:37] LABS: Hemoglobin 7.4 g/dL (14.0-18.0); Mean Corpuscular HGB CONC 31.6 g/dL (32.0-36.0); Mean Corpuscular Hemoglobin 25.9 pg (27.0-31.0); Mean Corpuscular Volume 82.1 fL (78.0-98.0); Mean Platelet Volume 6.3 fL (7.4-10.4); Platelet Count 662 thou/uL (130-400); RBC Distribution Width 22.1 % (11.5-14.5); Red Blood Cell (RBC) Count 2.86 mill/uL (4.70-6.10); White Blood Cell (WBC) Count 16.9 thou/uL (4.8-10.8)
[2021-07-13 17:52] LABS: #Basophils 0.1 thou/uL (0.0-0.2); #Eosinphils 0.6 thou/uL (0.0-0.7); #Lymphocytes 2.5 thou/uL (1.20-3.40); #Monocytes 1.2 thou/uL (0.11-0.59); #Neutrophils 12.6 thou/uL (1.40-6.50); %Basophils 0.4 % (0.0-1.0); %Eosinophils 3.3 % (0.0-10.0); %Lymphocytes 14.6 % (21.0-51.0); %Neutrophils 74.7 % (42.0-75.0)
[2021-07-13 17:55] LABS: ALT (SGPT) 8 U/L (8-55); AST (SGOT) 15 U/L (5-34); Albumin 2.7 g/dL (3.5-5.0); Alkaline Phosphatase 88 U/L (40-110); Anion Gap 13 mmol/L (10-20); BUN (Urea Nitrogen) 9 mg/dL (8.4-25.7); Bilirubin, Total 0.2 mg/dL (0.2-1.2); Calc. Creatinine Clearance 0 mL/min (70-130); Calcium 8.3 mg/dL (7.8-10.44); Carbon Dioxide 31 mmol/L (22-29); Chloride 97 mmol/L (98-107); Globulin 4.5 g/dL (2.4-3.5); Glucose 110 mg/dL (70-105); Potassium 3.5 mmol/L (3.5-5.1); Protein, Total 7.2 g/dL (6.0-8.3); Sodium 137 mmol/L (136-145)
[2021-07-13] MEDS ORDERED: Cefepime 2 GM VIAL ONE (18:17)
[2021-07-13] MEDS ORDERED: VANCOMYCIN 2 GRAM/500 ML BAG 2 GM in Premix Bag 1 BAG IVPB SCH (19:15)
[2021-07-13] MEDS ORDERED: Morphine 4 MG/ML VIAL ONE (19:15)
== END 2021-07-13 20:33 | disposition home or self-care (01) ==
LOC: ERS 16:56
DX: J18.9 Pneumonia, unspecified organism (principal); D64.9 Anemia, unspecified; C79.9 Secondary malignant neoplasm of unspecified site; E11.9 Type 2 diabetes mellitus without complications; E78.5 Hyperlipidemia, unspecified; F17.210 Nicotine dependence, cigarettes, uncomplicated
CPT/HCPCS: 36415; 71045; 80053; 83605; 83880; 84484; 85025; 86850; 86900; 86901; 87040; 93005; 94640; 94760; 96365; 96375; J0692; J2270; J3370; J7620

== ENCOUNTER 2021-07-25 10:28 | Emergency (ER) | payer OTHER ==
[2021-07-25 12:30] LABS: #Eosinphils 0.3 thou/uL (0.0-0.7); #Lymphocytes 1.7 thou/uL (1.20-3.40); #Monocytes 2.1 thou/uL (0.11-0.59); #Neutrophils 10.1 thou/uL (1.40-6.50); %Basophils 0.2 % (0.0-1.0); %Eosinophils 2.3 % (0.0-10.0); %Lymphocytes 11.9 % (21.0-51.0); %Monocytes 14.5 % (0.0-10.0); %Neutrophils 71.1 % (42.0-75.0); Hemoglobin 7.7 g/dL (14.0-18.0); Mean Corpuscular HGB CONC 30.1 g/dL (32.0-36.0); Mean Corpuscular Hemoglobin 25.2 pg (27.0-31.0); Mean Corpuscular Volume 83.7 fL (78.0-98.0); Mean Platelet Volume 6.6 fL (7.4-10.4); Platelet Count 588 thou/uL (130-400); RBC Distribution Width 22.1 % (11.5-14.5); Red Blood Cell (RBC) Count 3.04 mill/uL (4.70-6.10); White Blood Cell (WBC) Count 14.3 thou/uL (4.8-10.8)
[2021-07-25] MEDS ORDERED: Acetaminophen 500 MG TAB ONE (12:36)
[2021-07-25 12:54] LABS: ALT (SGPT) 8 U/L (8-55); AST (SGOT) 12 U/L (5-34); Albumin 2.9 g/dL (3.5-5.0); Alkaline Phosphatase 79 U/L (40-110); Anion Gap 11 mmol/L (10-20); BUN (Urea Nitrogen) 6 mg/dL (8.4-25.7); Bilirubin, Total 0.3 mg/dL (0.2-1.2); Calc. Creatinine Clearance 0 mL/min (70-130); Calcium 8.7 mg/dL (7.8-10.44); Carbon Dioxide 28 mmol/L (22-29); Chloride 99 mmol/L (98-107); Globulin 4.7 g/dL (2.4-3.5); Glucose 106 mg/dL (70-105); Potassium 3.3 mmol/L (3.5-5.1); Protein, Total 7.6 g/dL (6.0-8.3); Sodium 135 mmol/L (136-145)
[2021-07-25 13:19] LABS: Bilirubin Negative (Negative); Blood, Urine Negative (Negative); Clarity Clear (Clear); Glucose, Urine (Dipstick) Normal (Negative); Ketone, Urine Negative (Negative); Leukocyte Negative Leu/uL (Negative); Nitrite Negative (Negative); Protein, Urine (Dipstick) Negative (Neg-Trace); Specific Gravity, Urine 1.007 (1.002-1.036); Urobilinogen Normal mg/dL (Less than 2)
== END 2021-07-25 14:30 | disposition home or self-care (01) ==
LOC: ERS 10:28
DX: R60.0 Localized edema (principal); E11.9 Type 2 diabetes mellitus without complications; E78.5 Hyperlipidemia, unspecified; F17.210 Nicotine dependence, cigarettes, uncomplicated
CPT/HCPCS: 71045; 80053; 81003; 83880; 84484; 85025; 93005

== ENCOUNTER 2021-08-02 10:57 | Inpatient (IN) | payer OTHER ==
[2021-08-02 11:49] LABS: #Basophils 0.1 thou/uL (0.0-0.2); #Eosinphils 0.3 thou/uL (0.0-0.7); #Lymphocytes 1.3 thou/uL (1.20-3.40); #Monocytes 1.7 thou/uL (0.11-0.59); %Basophils 0.4 % (0.0-1.0); %Eosinophils 1.9 % (0.0-10.0); %Lymphocytes 7.9 % (21.0-51.0); %Monocytes 10.2 % (0.0-10.0); %Neutrophils 79.7 % (42.0-75.0); Hemoglobin 7.1 g/dL (14.0-18.0); Mean Corpuscular HGB CONC 30.1 g/dL (32.0-36.0); Mean Corpuscular Hemoglobin 25.3 pg (27.0-31.0); Mean Corpuscular Volume 83.8 fL (78.0-98.0); Mean Platelet Volume 7.1 fL (7.4-10.4); Platelet Count 597 thou/uL (130-400); RBC Distribution Width 22.6 % (11.5-14.5); Red Blood Cell (RBC) Count 2.79 mill/uL (4.70-6.10); White Blood Cell (WBC) Count 16.3 thou/uL (4.8-10.8)
[2021-08-02 11:51] LABS: Actual Bicarbonate (HCO3a) 27.4 mEq/L (22-28); Analyzer IN Cardio ER; Base Excess (BEa) 2.3 mEq/L (-2.0 to +3.0); CO2 Tension 45.7 mmHg (35.0-45.0); Calcium, Ionized (arterial) 1.06 mmol/L (1.12-1.30); Carboxyhemoglobin (COHb) 3.7 gm% (0.0-3.0); Hemoglobin (Hb) 7.5 g/dL (14.0-18.0); O2 Tension (PaO2), arterial 83.5 mmHg (80.0-100.0); Potassium - ABG Lab 2.92 mmol/L (3.70-5.30)
[2021-08-02 11:53] LABS: ALV-art Gradient 59.015 mmHg (0-20); Puncture Site RRA
[2021-08-02] MEDS ORDERED: Cefepime 2 GM VIAL ONE (12:00)
[2021-08-02] MEDS ORDERED: Vancomycin 1 GM/200 ML BAG ONE (12:00)
[2021-08-02] MEDS ORDERED: Dexamethasone 10 MG/ML VIAL ONE (12:00)
[2021-08-02] MEDS ORDERED: Iopamidol-370 76% 500 ML 1 ML ONE (12:08)
[2021-08-02 12:13] LABS: ALT (SGPT) Less than 7 U/L (8-55); AST (SGOT) 11 U/L (5-34); Albumin 2.6 g/dL (3.5-5.0); Alkaline Phosphatase 83 U/L (40-110); Anion Gap 15 mmol/L (10-20); BUN (Urea Nitrogen) 9 mg/dL (8.4-25.7); Bilirubin, Total 0.3 mg/dL (0.2-1.2); Calc. Creatinine Clearance 0 mL/min (70-130); Calcium 8.2 mg/dL (7.8-10.44); Carbon Dioxide 26 mmol/L (22-29); Chloride 95 mmol/L (98-107); Globulin 4.4 g/dL (2.4-3.5); Glucose 220 mg/dL (70-105); Potassium 3.2 mmol/L (3.5-5.1); Sodium 133 mmol/L (136-145)
[2021-08-02 14:13] LABS: SARS-CoV-2 NAA Rapid Test Not Detected (NotDetected)
[2021-08-02 14:46] LABS: Bilirubin Negative (Negative); Blood, Urine Negative (Negative); Clarity Clear (Clear); Glucose, Urine (Dipstick) Normal (Negative); Ketone, Urine Negative (Negative); Leukocyte Negative Leu/uL (Negative); Nitrite Negative (Negative); Protein, Urine (Dipstick) Negative (Neg-Trace); Specific Gravity, Urine 1.034 (1.002-1.036); Urobilinogen Normal mg/dL (Less than 2)
[2021-08-02 14:48] LABS: Lactic Acid 1.5 mmol/L (0.5-2.2)
[2021-08-02 14:59] LABS: Troponin I Less than 0.010 ng/mL (< 0.028)
[2021-08-02] MEDS ORDERED: Potassium Chloride 20 MEQ TAB PO SCH (16:00)
[2021-08-02] MEDS ORDERED: Dextrose 50% Abboject 50 ML SYRINGE SLOW IVP PRN (16:38)
[2021-08-02] MEDS ORDERED: Dextrose 5% in Water 1,000 ML IV PRN (16:38)
[2021-08-02] MEDS ORDERED: HumaLOG 300 UNITS/3 ML VIAL SC PRN ×2 (16:38)
[2021-08-02] MEDS: Nicotine 14 MG PATCH TD SCH (16:43)
[2021-08-02] MEDS ORDERED: Furosemide 20 MG TAB PO SCH (17:00)
[2021-08-02 17:40] LABS: Hemoglobin 7.5 g/dL (14.0-18.0); Mean Corpuscular HGB CONC 29.4 g/dL (32.0-36.0); Mean Corpuscular Hemoglobin 24.8 pg (27.0-31.0); Mean Corpuscular Volume 84.3 fL (78.0-98.0); Platelet Count 631 thou/uL (130-400); RBC Distribution Width 22.5 % (11.5-14.5); White Blood Cell (WBC) Count 16.9 thou/uL (4.8-10.8)
[2021-08-02 17:57] LABS: Magnesium 2.4 mg/dL (1.6-2.6); Phosphorus 3.2 mg/dL (2.3-4.7)
[2021-08-02 18:01] LABS: Troponin I Less than 0.010 ng/mL (< 0.028)
[2021-08-02] MEDS: busPIRone HCl 10 MG TAB PO SCH (20:14)
[2021-08-02] MEDS: Ferrous Sulfate 325 MG TAB PO SCH (20:14)
[2021-08-02] MEDS: risperiDONE 1 MG TAB PO SCH (20:14)
[2021-08-02] MEDS: Atorvastatin Calcium 40 MG TAB PO SCH (20:14)
[2021-08-02] MEDS: Mirtazapine 15 MG TAB PO SCH (20:14)
[2021-08-02] MEDS: hydrOXYzine 25 MG TAB PO SCH (20:14)
[2021-08-02] MEDS: Divalproex Sodium 250 MG (DR) TAB PO SCH (20:15)
[2021-08-02] MEDS ORDERED: HYDROcodone/Acetaminophen 10/325 mg Tablet PO PRN (21:01)
[2021-08-02] MEDS: HYDROcodone/Acetaminophen 5/325 mg Tablet PO PRN (21:10)
[2021-08-03 01:54] LABS: Hemoglobin 7.8 g/dL (14.0-18.0); Platelet Count 607 thou/uL (130-400)
[2021-08-03] MEDS: HYDROcodone/Acetaminophen 5/325 mg Tablet PO PRN (04:03)
[2021-08-03 05:47] LABS: ALT (SGPT) Less than 7 U/L (8-55); AST (SGOT) 11 U/L (5-34); Albumin 2.6 g/dL (3.5-5.0); Alkaline Phosphatase 82 U/L (40-110); Anion Gap 13 mmol/L (10-20); BUN (Urea Nitrogen) 10 mg/dL (8.4-25.7); Bilirubin, Total 0.3 mg/dL (0.2-1.2); Calc. Creatinine Clearance 139 mL/min (70-130); Calcium 9.1 mg/dL (7.8-10.44); Carbon Dioxide 29 mmol/L (22-29); Chloride 100 mmol/L (98-107); Globulin 4.8 g/dL (2.4-3.5); Glucose 113 mg/dL (70-105); Potassium 4.1 mmol/L (3.5-5.1); Protein, Total 7.4 g/dL (6.0-8.3); Sodium 138 mmol/L (136-145)
[2021-08-03 05:55] LABS: #Lymphocytes 1.4 thou/uL (1.20-3.40); #Monocytes 1.7 thou/uL (0.11-0.59); #Neutrophils 12.9 thou/uL (1.40-6.50); %Basophils 0.1 % (0.0-1.0); %Eosinophils 0.1 % (0.0-10.0); %Lymphocytes 8.6 % (21.0-51.0); %Monocytes 10.8 % (0.0-10.0); %Neutrophils 80.4 % (42.0-75.0); Hemoglobin 8.1 g/dL (14.0-18.0); Mean Corpuscular Hemoglobin 25.5 pg (27.0-31.0); Mean Corpuscular Volume 85.2 fL (78.0-98.0); Mean Platelet Volume 6.8 fL (7.4-10.4); Platelet Count 627 thou/uL (130-400); Red Blood Cell (RBC) Count 3.19 mill/uL (4.70-6.10); White Blood Cell (WBC) Count 16.1 thou/uL (4.8-10.8)
[2021-08-03] MEDS: busPIRone HCl 10 MG TAB PO SCH ×2 (08:18→20:16)
[2021-08-03] MEDS: Ferrous Sulfate 325 MG TAB PO SCH ×2 (08:19→20:18)
[2021-08-03] MEDS: Lisinopril 20 MG TAB PO SCH (08:19)
[2021-08-03] MEDS: Divalproex Sodium 250 MG (DR) TAB PO SCH ×2 (08:19→20:16)
[2021-08-03] MEDS: Furosemide 20 MG TAB PO SCH (08:19)
[2021-08-03] MEDS: Tamsulosin HCl 0.4 MG CAP PO SCH (08:20)
[2021-08-03] MEDS: Enoxaparin Sodium 40 MG/0.4 ML SYRINGE SC SCH (08:20)
[2021-08-03] MEDS: HYDROcodone/Acetaminophen 10/325 mg Tablet PO PRN ×4 (08:22→20:44)
[2021-08-03] MEDS: Guaifenesin DM 100-10/5 ML UDCUP PO PRN (11:55)
[2021-08-03] MEDS: Nicotine 14 MG PATCH TD SCH (16:52)
[2021-08-03] MEDS ORDERED: Albuterol Sulfate 2.5 mg/3 ml Neb NEB PRN (18:20)
[2021-08-03] MEDS ORDERED: Albuterol 200 PUFF (6.7GM INHALER) INH PRN (18:45)
[2021-08-03] MEDS: Mirtazapine 15 MG TAB PO SCH (20:16)
[2021-08-03] MEDS: Atorvastatin Calcium 40 MG TAB PO SCH (20:16)
[2021-08-03] MEDS: risperiDONE 1 MG TAB PO SCH (20:16)
[2021-08-03] MEDS: hydrOXYzine 25 MG TAB PO SCH (20:18)
[2021-08-04] MEDS: HYDROcodone/Acetaminophen 10/325 mg Tablet PO PRN ×4 (03:29→18:00)
[2021-08-04 05:25] LABS: ALT (SGPT) 7 U/L (8-55); AST (SGOT) 14 U/L (5-34); Albumin 2.5 g/dL (3.5-5.0); Alkaline Phosphatase 76 U/L (40-110); Anion Gap 13 mmol/L (10-20); BUN (Urea Nitrogen) 10 mg/dL (8.4-25.7); Bilirubin, Total 0.2 mg/dL (0.2-1.2); Calc. Creatinine Clearance 151 mL/min (70-130); Calcium 8.7 mg/dL (7.8-10.44); Carbon Dioxide 30 mmol/L (22-29); Chloride 100 mmol/L (98-107); Globulin 4.4 g/dL (2.4-3.5); Glucose 89 mg/dL (70-105); Potassium 3.9 mmol/L (3.5-5.1); Protein, Total 6.9 g/dL (6.0-8.3); Sodium 139 mmol/L (136-145)
[2021-08-04 06:24] LABS: #Eosinphils 0.4 thou/uL (0.0-0.7); #Lymphocytes 2.6 thou/uL (1.20-3.40); #Monocytes 1.6 thou/uL (0.11-0.59); #Neutrophils 8.3 thou/uL (1.40-6.50); %Basophils 0.4 % (0.0-1.0); %Lymphocytes 20.1 % (21.0-51.0); %Monocytes 12.1 % (0.0-10.0); %Neutrophils 64.5 % (42.0-75.0); Anisocytosis SLIGHT = 6-15 cells (100X) (0-5/hpf); Elliptocytes SLIGHT = 2-5 cells (100X) (0-1/hpf); Hemoglobin 7.4 g/dL (14.0-18.0); Hypochromia SLIGHT = 6-15 cells (100X) (0-5/hpf); MDiff Complete? YES; Mean Corpuscular HGB CONC 28.9 g/dL (32.0-36.0); Mean Corpuscular Hemoglobin 25.1 pg (27.0-31.0); Mean Corpuscular Volume 86.7 fL (78.0-98.0); Mean Platelet Volume 6.8 fL (7.4-10.4); Platelet Count 617 thou/uL (130-400); Platelet Morphology Comment Appears Increased; Polychromasia SLIGHT = 2-3 cells (100X) (0-2/hpf); RBC Distribution Width 21.9 % (11.5-14.5); Red Blood Cell (RBC) Count 2.96 mill/uL (4.70-6.10); Target Cells SLIGHT = 2-5 cells (100X) (0-1/hpf); White Blood Cell (WBC) Count 12.9 thou/uL (4.8-10.8)
[2021-08-04] MEDS: busPIRone HCl 10 MG TAB PO SCH ×2 (08:51→20:46)
[2021-08-04] MEDS: Divalproex Sodium 250 MG (DR) TAB PO SCH ×2 (08:53→20:45)
[2021-08-04] MEDS: Furosemide 20 MG TAB PO SCH (08:54)
[2021-08-04] MEDS: Ferrous Sulfate 325 MG TAB PO SCH ×2 (08:54→20:44)
[2021-08-04] MEDS: Enoxaparin Sodium 40 MG/0.4 ML SYRINGE SC SCH (08:54)
[2021-08-04] MEDS: Lisinopril 20 MG TAB PO SCH (08:54)
[2021-08-04] MEDS: Tamsulosin HCl 0.4 MG CAP PO SCH (08:55)
[2021-08-04] MEDS: Nicotine 14 MG PATCH TD SCH (17:25)
[2021-08-04 18:12] VITALS: BMI 23.6
[2021-08-04] MEDS ORDERED: Acetaminophen 325 MG TAB PO PRN (18:43)
[2021-08-04] MEDS ORDERED: Acetaminophen 500 MG TAB PO SCH (18:45)
[2021-08-04] MEDS: Atorvastatin Calcium 40 MG TAB PO SCH (20:43)
[2021-08-04] MEDS: Mirtazapine 15 MG TAB PO SCH (20:44)
[2021-08-04] MEDS: risperiDONE 1 MG TAB PO SCH (20:45)
[2021-08-04] MEDS: hydrOXYzine 25 MG TAB PO SCH (20:46)
[2021-08-05] MEDS: HYDROcodone/Acetaminophen 10/325 mg Tablet PO PRN ×4 (00:24→20:02)
[2021-08-05] MEDS: Guaifenesin DM 100-10/5 ML UDCUP PO PRN (05:38)
[2021-08-05 05:40] LABS: #Eosinphils 0.6 thou/uL (0.0-0.7); #Lymphocytes 2.6 thou/uL (1.20-3.40); #Monocytes 1.6 thou/uL (0.11-0.59); #Neutrophils 11.5 thou/uL (1.40-6.50); %Eosinophils 3.7 % (0.0-10.0); %Lymphocytes 15.7 % (21.0-51.0); %Neutrophils 70.5 % (42.0-75.0); Hemoglobin 7.9 g/dL (14.0-18.0); Mean Corpuscular HGB CONC 29.6 g/dL (32.0-36.0); Mean Corpuscular Hemoglobin 25.8 pg (27.0-31.0); Mean Corpuscular Volume 87.1 fL (78.0-98.0); Mean Platelet Volume 6.7 fL (7.4-10.4); Platelet Count 600 thou/uL (130-400); RBC Distribution Width 22.7 % (11.5-14.5); Red Blood Cell (RBC) Count 3.05 mill/uL (4.70-6.10); White Blood Cell (WBC) Count 16.3 thou/uL (4.8-10.8)
[2021-08-05 06:00] LABS: ALT (SGPT) 10 U/L (8-55); AST (SGOT) 12 U/L (5-34); Albumin 2.8 g/dL (3.5-5.0); Alkaline Phosphatase 78 U/L (40-110); Anion Gap 15 mmol/L (10-20); BUN (Urea Nitrogen) 9 mg/dL (8.4-25.7); Bilirubin, Total 0.3 mg/dL (0.2-1.2); Calc. Creatinine Clearance 138 mL/min (70-130); Calcium 8.9 mg/dL (7.8-10.44); Carbon Dioxide 31 mmol/L (22-29); Chloride 97 mmol/L (98-107); Globulin 4.6 g/dL (2.4-3.5); Glucose 97 mg/dL (70-105); Protein, Total 7.4 g/dL (6.0-8.3); Sodium 139 mmol/L (136-145)
[2021-08-05] MEDS: Enoxaparin Sodium 40 MG/0.4 ML SYRINGE SC SCH (09:37)
[2021-08-05] MEDS: Ferrous Sulfate 325 MG TAB PO SCH ×2 (09:37→17:02)
[2021-08-05] MEDS: Lisinopril 20 MG TAB PO SCH (09:38)
[2021-08-05] MEDS: Furosemide 20 MG TAB PO SCH (09:38)
[2021-08-05] MEDS: Tamsulosin HCl 0.4 MG CAP PO SCH (09:38)
[2021-08-05] MEDS: Divalproex Sodium 250 MG (DR) TAB PO SCH ×2 (10:34→20:01)
[2021-08-05] MEDS: busPIRone HCl 10 MG TAB PO SCH ×2 (10:35→20:00)
[2021-08-05] MEDS ORDERED: Ibuprofen 800 MG TAB PO SCH (16:45)
[2021-08-05] MEDS: Nicotine 14 MG PATCH TD SCH (17:03)
[2021-08-05] MEDS: Mirtazapine 15 MG TAB PO SCH (20:00)
[2021-08-05] MEDS: Atorvastatin Calcium 40 MG TAB PO SCH (20:01)
[2021-08-05] MEDS: hydrOXYzine 25 MG TAB PO SCH (20:01)
[2021-08-05] MEDS: risperiDONE 1 MG TAB PO SCH (20:01)
[2021-08-06 05:27] LABS: #Basophils 0.1 thou/uL (0.0-0.2); #Eosinphils 0.6 thou/uL (0.0-0.7); #Lymphocytes 2.2 thou/uL (1.20-3.40); #Monocytes 1.8 thou/uL (0.11-0.59); #Neutrophils 9.5 thou/uL (1.40-6.50); %Basophils 0.4 % (0.0-1.0); %Eosinophils 4.4 % (0.0-10.0); %Lymphocytes 15.2 % (21.0-51.0); %Monocytes 12.9 % (0.0-10.0); %Neutrophils 67.2 % (42.0-75.0); Hemoglobin 7.2 g/dL (14.0-18.0); Mean Corpuscular HGB CONC 29.9 g/dL (32.0-36.0); Mean Corpuscular Hemoglobin 25.8 pg (27.0-31.0); Mean Corpuscular Volume 86.3 fL (78.0-98.0); Mean Platelet Volume 6.6 fL (7.4-10.4); Platelet Count 561 thou/uL (130-400); RBC Distribution Width 22.5 % (11.5-14.5); Red Blood Cell (RBC) Count 2.78 mill/uL (4.70-6.10); White Blood Cell (WBC) Count 14.2 thou/uL (4.8-10.8)
[2021-08-06 05:46] LABS: ALT (SGPT) Less than 7 U/L (8-55); AST (SGOT) 9 U/L (5-34); Albumin 2.5 g/dL (3.5-5.0); Alkaline Phosphatase 66 U/L (40-110); Anion Gap 12 mmol/L (10-20); BUN (Urea Nitrogen) 11 mg/dL (8.4-25.7); Bilirubin, Total 0.3 mg/dL (0.2-1.2); Calc. Creatinine Clearance 132 mL/min (70-130); Calcium 8.6 mg/dL (7.8-10.44); Carbon Dioxide 31 mmol/L (22-29); Chloride 99 mmol/L (98-107); Globulin 4.2 g/dL (2.4-3.5); Glucose 89 mg/dL (70-105); Potassium 3.9 mmol/L (3.5-5.1); Protein, Total 6.7 g/dL (6.0-8.3); Sodium 138 mmol/L (136-145)
[2021-08-06] MEDS: HYDROcodone/Acetaminophen 10/325 mg Tablet PO PRN (06:16)
[2021-08-06] MEDS: Lisinopril 20 MG TAB PO SCH (08:19)
[2021-08-06] MEDS: Tamsulosin HCl 0.4 MG CAP PO SCH (08:19)
[2021-08-06] MEDS: Furosemide 20 MG TAB PO SCH (08:19)
[2021-08-06] MEDS: Ferrous Sulfate 325 MG TAB PO SCH (08:19)
[2021-08-06] MEDS: busPIRone HCl 10 MG TAB PO SCH (08:20)
[2021-08-06] MEDS: Divalproex Sodium 250 MG (DR) TAB PO SCH (08:20)
[2021-08-06] MEDS: Enoxaparin Sodium 40 MG/0.4 ML SYRINGE SC SCH ×2 (08:20→08:23)
[2021-08-06 09:32] VITALS: TEMP 97.6
[2021-08-06 09:34] VITALS: BP 94/48
== END 2021-08-06 11:25 | disposition home or self-care (01) | DRG 180 ==
LOC: ERS 10:57 → 2SW 14:17 → MSONC 08-04 17:57
PROVIDERS: ADMIT Family Medicine; ATTEND Family Medicine
PROC: 30233N1 Transfusion of Nonautologous Red Blood Cells into Peripheral Vein, Percutaneous Approach (ICD-10-PCS; principal; 2021-08-02)
DX: C34.90 Malignant neoplasm of unspecified part of unspecified bronchus or lung (principal); J96.02 Acute respiratory failure with hypercapnia; R65.10 Systemic inflammatory response syndrome (SIRS) of non-infectious origin without acute organ dysfunction; J90 Pleural effusion, not elsewhere classified; E87.1 Hypo-osmolality and hyponatremia; Z20.822 Contact with and (suspected) exposure to COVID-19; D63.0 Anemia in neoplastic disease; I45.81 Long QT syndrome; E11.9 Type 2 diabetes mellitus without complications; I10 Essential (primary) hypertension; F25.9 Schizoaffective disorder, unspecified; F17.210 Nicotine dependence, cigarettes, uncomplicated; G47.00 Insomnia, unspecified; E55.9 Vitamin D deficiency, unspecified; E87.6 Hypokalemia; E78.5 Hyperlipidemia, unspecified; N40.0 Benign prostatic hyperplasia without lower urinary tract symptoms; Z89.612 Acquired absence of left leg above knee; Z92.21 Personal history of antineoplastic chemotherapy; Z92.3 Personal history of irradiation; Z86.16 Personal history of COVID-19; Z86.711 Personal history of pulmonary embolism; Z88.8 Allergy status to other drugs, medicaments and biological substances; Z79.899 Other long term (current) drug therapy
CPT/HCPCS: 36415; 36416; 36430; 36600; 71045; 71275; 80053; 81003; 82805; 83605; 83735; 83880; 84100; 84145; 84484; 85025; 86850; 86900; 86901; 87040; 93005; 94640; 94760; 96374; 96375; J0692; J1100; J1650; J3370; J7620; P9016; Q9967

== ENCOUNTER 2021-08-16 12:03 | Observation (INO) | payer OTHER ==
[2021-08-16 12:53] LABS: #Eosinphils 0.7 thou/uL (0.0-0.7); #Lymphocytes 1.5 thou/uL (1.20-3.40); #Monocytes 2.2 thou/uL (0.11-0.59); #Neutrophils 10.7 thou/uL (1.40-6.50); %Basophils 0.1 % (0.0-1.0); %Eosinophils 4.4 % (0.0-10.0); %Lymphocytes 9.8 % (21.0-51.0); %Monocytes 14.8 % (0.0-10.0); Hemoglobin 7.1 g/dL (14.0-18.0); Mean Corpuscular HGB CONC 30.2 g/dL (32.0-36.0); Mean Corpuscular Hemoglobin 25.9 pg (27.0-31.0); Mean Corpuscular Volume 85.7 fL (78.0-98.0); Mean Platelet Volume 6.9 fL (7.4-10.4); Platelet Count 557 thou/uL (130-400); RBC Distribution Width 22.8 % (11.5-14.5); Red Blood Cell (RBC) Count 2.75 mill/uL (4.70-6.10); White Blood Cell (WBC) Count 15.1 thou/uL (4.8-10.8)
[2021-08-16 13:23] LABS: Anisocytosis MODERATE=16-30 cells (100X) (0-5/hpf); Hypochromia SLIGHT = 6-15 cells (100X) (0-5/hpf); MDiff Complete? YES; Ovalocytes SLIGHT = 2-5 cells (100X) (0-1/hpf); Platelet Morphology Comment Appears Increased; Poikilocytosis SLIGHT = 6-15 cells (100X) (0-5/hpf); Polychromasia MODERATE = 3-4 cells (100X) (0-2/hpf); Target Cells SLIGHT = 2-5 cells (100X) (0-1/hpf)
[2021-08-16 13:26] LABS: ALT (SGPT) Less than 7 U/L (8-55); AST (SGOT) 11 U/L (5-34); Albumin 2.5 g/dL (3.5-5.0); Alkaline Phosphatase 98 U/L (40-110); Anion Gap 11 mmol/L (10-20); BUN (Urea Nitrogen) 14 mg/dL (8.4-25.7); Bilirubin, Total 0.2 mg/dL (0.2-1.2); Calc. Creatinine Clearance 0 mL/min (70-130); Calcium 8.6 mg/dL (7.8-10.44); Carbon Dioxide 30 mmol/L (22-29); Chloride 95 mmol/L (98-107); Estimated GFR 107; Globulin 4.5 g/dL (2.4-3.5); Glucose 113 mg/dL (70-105); Potassium 3.3 mmol/L (3.5-5.1); Sodium 133 mmol/L (136-145)
[2021-08-16] MEDS ORDERED: Ketorolac Tromethamine 30 MG/ML VIAL ONE (14:31)
[2021-08-16] MEDS ORDERED: Dextrose 5% in Water 1,000 ML IV PRN (14:55)
[2021-08-16] MEDS ORDERED: Dextrose 50% Abboject 50 ML SYRINGE SLOW IVP PRN (14:55)
[2021-08-16] MEDS ORDERED: Nicotine 14 MG PATCH TD SCH (15:00)
[2021-08-16] MEDS ORDERED: HumaLOG 300 UNITS/3 ML VIAL SC PRN ×2 (15:04)
[2021-08-16 15:09] LABS: SARS-CoV-2 NAA Rapid Test Not Detected (NotDetected)
[2021-08-16] MEDS ORDERED: Morphine 2 MG/ML VIAL SLOW IVP PRN (15:09)
[2021-08-16] MEDS ORDERED: Lorazepam (BATCHED) 2 MG/ML SYR SLOW IVP PRN (15:09)
[2021-08-16] MEDS ORDERED: Potassium Chloride 20 MEQ TAB PO SCH (15:15)
[2021-08-16 17:09] VITALS: BMI 22.1
[2021-08-16] MEDS ORDERED: risperiDONE 1 MG TAB PO SCH (21:00)
[2021-08-16] MEDS ORDERED: Atorvastatin Calcium 40 MG TAB PO SCH (21:00)
[2021-08-16] MEDS ORDERED: hydrOXYzine 25 MG TAB PO SCH (21:00)
[2021-08-16] MEDS ORDERED: Mirtazapine 15 MG TAB PO SCH (21:00)
[2021-08-16] MEDS: Ferrous Sulfate 325 MG TAB PO SCH (21:01)
[2021-08-16] MEDS: Acetaminophen 325 MG TAB PO PRN (21:01)
[2021-08-16] MEDS: Lorazepam 1 MG TAB PO PRN (21:02)
[2021-08-16] MEDS: Divalproex Sodium DR 500 MG TAB PO SCH (21:06)
[2021-08-17] MEDS ORDERED: Albuterol Sulfate 2.5 mg/3 ml Neb NEB PRN (00:30)
[2021-08-17] MEDS: Morphine 2 MG/ML VIAL SLOW IVP PRN ×5 (01:19→13:05)
[2021-08-17] MEDS: Acetaminophen 325 MG TAB PO PRN (02:31)
[2021-08-17] MEDS: Lorazepam 1 MG TAB PO PRN ×3 (03:26→13:05)
[2021-08-17] MEDS ORDERED: Albuterol Sulfate 1.25 MG/3 ML NEB INH PRN (03:59)
[2021-08-17 06:27] LABS: Anion Gap 14 mmol/L (10-20); BUN (Urea Nitrogen) 11 mg/dL (8.4-25.7); Calc. Creatinine Clearance 113 mL/min (70-130); Calcium 9.1 mg/dL (7.8-10.44); Carbon Dioxide 30 mmol/L (22-29); Chloride 98 mmol/L (98-107); Estimated GFR 111; Glucose 104 mg/dL (70-105); Potassium 4.1 mmol/L (3.5-5.1); Sodium 138 mmol/L (136-145)
[2021-08-17] MEDS ORDERED: Enoxaparin Sodium 40 MG/0.4 ML SYRINGE SC SCH (09:00)
[2021-08-17] MEDS ORDERED: busPIRone HCl 10 MG TAB PO SCH (09:00)
[2021-08-17] MEDS ORDERED: Furosemide 20 MG TAB PO SCH (09:00)
[2021-08-17] MEDS ORDERED: Tamsulosin HCl 0.4 MG CAP PO SCH (09:00)
[2021-08-17] MEDS ORDERED: Lisinopril 20 MG TAB PO SCH (09:00)
[2021-08-17] MEDS: Divalproex Sodium DR 500 MG TAB PO SCH (10:30)
[2021-08-17] MEDS: Ferrous Sulfate 325 MG TAB PO SCH (10:31)
[2021-08-17 11:58] VITALS: BP 120/64; TEMP 99.6
[2021-08-17] MEDS ORDERED: Nicotine 21 MG PATCH TOP SCH (15:30)
== END 2021-08-17 16:14 | disposition home or self-care (01) ==
LOC: ERS 12:03 → 2NO 14:16
PROVIDERS: ADMIT Student in an Organized Health Care Education/Training Program; ATTEND Student in an Organized Health Care Education/Training Program
DX: C80.1 Malignant (primary) neoplasm, unspecified (principal); C78.01 Secondary malignant neoplasm of right lung; C78.02 Secondary malignant neoplasm of left lung; J96.21 Acute and chronic respiratory failure with hypoxia; E87.6 Hypokalemia; M79.89 Other specified soft tissue disorders; D63.0 Anemia in neoplastic disease; R94.31 Abnormal electrocardiogram [ECG] [EKG]; E11.9 Type 2 diabetes mellitus without complications; I10 Essential (primary) hypertension; E78.5 Hyperlipidemia, unspecified; N40.0 Benign prostatic hyperplasia without lower urinary tract symptoms; F17.210 Nicotine dependence, cigarettes, uncomplicated; E88.09 Other disorders of plasma-protein metabolism, not elsewhere classified; D72.829 Elevated white blood cell count, unspecified; M71.21 Synovial cyst of popliteal space [Baker], right knee; Z79.899 Other long term (current) drug therapy; Z88.8 Allergy status to other drugs, medicaments and biological substances; Z89.612 Acquired absence of left leg above knee
CPT/HCPCS: 36415; 36416; 71045; 80048; 80053; 83880; 84484; 85025; 93005; 94640; 96374; J1650; J1885; J2270; J7620; U0002

== ENCOUNTER 2021-08-18 07:35 | Inpatient (IN) | payer OTHER ==
[2021-08-18 08:06] LABS: #Eosinphils 0.8 thou/uL (0.0-0.7); #Lymphocytes 1.4 thou/uL (1.20-3.40); #Monocytes 1.9 thou/uL (0.11-0.59); %Basophils 0.2 % (0.0-1.0); %Eosinophils 5.5 % (0.0-10.0); %Monocytes 13.2 % (0.0-10.0); %Neutrophils 71.2 % (42.0-75.0); Hemoglobin 6.6 g/dL (14.0-18.0); Mean Corpuscular HGB CONC 30.8 g/dL (32.0-36.0); Mean Corpuscular Hemoglobin 26.1 pg (27.0-31.0); Mean Corpuscular Volume 84.9 fL (78.0-98.0); Mean Platelet Volume 6.6 fL (7.4-10.4); Platelet Count 558 thou/uL (130-400); RBC Distribution Width 22.7 % (11.5-14.5); Red Blood Cell (RBC) Count 2.54 mill/uL (4.70-6.10); White Blood Cell (WBC) Count 14.1 thou/uL (4.8-10.8)
[2021-08-18] MEDS ORDERED: methylPREDNISolone Sod Succ/PF 125 MG/2 ML VIAL ONE (08:16)
[2021-08-18 08:26] LABS: ALT (SGPT) 8 U/L (8-55); AST (SGOT) 16 U/L (5-34); Albumin 2.6 g/dL (3.5-5.0); Alkaline Phosphatase 95 U/L (40-110); Anion Gap 14 mmol/L (10-20); BUN (Urea Nitrogen) 14 mg/dL (8.4-25.7); Bilirubin, Total 0.3 mg/dL (0.2-1.2); CK (CPK) 106 U/L (30-200); Calc. Creatinine Clearance 0 mL/min (70-130); Calcium 8.6 mg/dL (7.8-10.44); Carbon Dioxide 30 mmol/L (22-29); Chloride 91 mmol/L (98-107); Estimated GFR 109; Globulin 4.5 g/dL (2.4-3.5); Glucose 86 mg/dL (70-105); Magnesium 2.1 mg/dL (1.6-2.6); Potassium 3.8 mmol/L (3.5-5.1); Protein, Total 7.1 g/dL (6.0-8.3); Sodium 131 mmol/L (136-145)
[2021-08-18 09:35] LABS: INR-International Normal Ratio 1.3; PTT 39.7 sec (22.9-36.1); Prothrombin Time 16.1 sec (12.0-14.7)
[2021-08-18] MEDS ORDERED: Furosemide 40 MG/4 ML VIAL ONE (09:35)
[2021-08-18 09:57] LABS: Iron 17 ug/dL (65-175); Iron Binding Capacity, Total 141 mcg/dL (261-462)
[2021-08-18 10:48] LABS: Bilirubin Negative (Negative); Blood, Urine Negative (Negative); Clarity Clear (Clear); Glucose, Urine (Dipstick) Normal (Negative); Ketone, Urine Negative (Negative); Leukocyte Negative Leu/uL (Negative); Nitrite Negative (Negative); Protein, Urine (Dipstick) Negative (Neg-Trace); Specific Gravity, Urine 1.011 (1.002-1.036); Urobilinogen Normal mg/dL (Less than 2); pH, Urine 5.5 (5.0-9.0)
[2021-08-18 11:19] LABS: Troponin I Less than 0.010 ng/mL (< 0.028)
[2021-08-18] MEDS ORDERED: Nicotine 14 MG PATCH TD SCH (12:00)
[2021-08-18 13:09] VITALS: BMI 20.7
[2021-08-18] MEDS ORDERED: Furosemide 40 MG/4 ML VIAL SLOW IVP SCH (14:30)
[2021-08-18] MEDS: HYDROcodone/Acetaminophen 10/325 mg Tablet PO PRN (14:37)
[2021-08-18] MEDS ORDERED: Dextrose 50% Abboject 50 ML SYRINGE SLOW IVP PRN (16:28)
[2021-08-18] MEDS ORDERED: HumaLOG 300 UNITS/3 ML VIAL SC PRN ×2 (16:28)
[2021-08-18] MEDS ORDERED: Dextrose 5% in Water 1,000 ML IV PRN (16:28)
[2021-08-18] MEDS: Albuterol Sulfate 2.5 mg/0.5 ml Neb NEB PRN (17:26)
[2021-08-18 18:07] LABS: Hemoglobin 8.3 g/dL (14.0-18.0)
[2021-08-18] MEDS: Ferrous Sulfate 325 MG TAB PO SCH (20:14)
[2021-08-18] MEDS: Divalproex Sodium 250 MG (DR) TAB PO SCH (20:14)
[2021-08-18] MEDS ORDERED: risperiDONE 1 MG TAB PO SCH (21:00)
[2021-08-18] MEDS ORDERED: Atorvastatin Calcium 40 MG TAB PO SCH (21:00)
[2021-08-18] MEDS ORDERED: Mirtazapine 15 MG TAB PO SCH (21:00)
[2021-08-18] MEDS ORDERED: hydrOXYzine 25 MG TAB PO SCH (21:00)
[2021-08-18] MEDS ORDERED: Guaifenesin DM 100-10/5 ML UDCUP PO PRN (23:01)
[2021-08-18] MEDS ORDERED: Albuterol 200 PUFF (6.7GM INHALER) INH PRN (23:06)
[2021-08-19] MEDS: HYDROcodone/Acetaminophen 10/325 mg Tablet PO PRN ×2 (04:02→08:46)
[2021-08-19] MEDS: Albuterol Sulfate 2.5 mg/0.5 ml Neb NEB PRN ×2 (04:18→07:11)
[2021-08-19 06:13] LABS: #Lymphocytes 1.9 thou/uL (1.20-3.40); #Monocytes 1.9 thou/uL (0.11-0.59); %Eosinophils 0.2 % (0.0-10.0); %Lymphocytes 13.6 % (21.0-51.0); %Monocytes 13.9 % (0.0-10.0); %Neutrophils 72.3 % (42.0-75.0); Hemoglobin 7.7 g/dL (14.0-18.0); Mean Corpuscular HGB CONC 29.8 g/dL (32.0-36.0); Mean Corpuscular Hemoglobin 25.5 pg (27.0-31.0); Mean Corpuscular Volume 85.5 fL (78.0-98.0); Mean Platelet Volume 6.9 fL (7.4-10.4); Platelet Count 596 thou/uL (130-400); RBC Distribution Width 21.8 % (11.5-14.5); Red Blood Cell (RBC) Count 3.01 mill/uL (4.70-6.10); White Blood Cell (WBC) Count 13.9 thou/uL (4.8-10.8)
[2021-08-19] MEDS ORDERED: Milk Of Magnesia 30 ML UDCUP PO PRN (08:15)
[2021-08-19] MEDS: Ferrous Sulfate 325 MG TAB PO SCH (08:44)
[2021-08-19] MEDS: Divalproex Sodium 250 MG (DR) TAB PO SCH (08:44)
[2021-08-19] MEDS ORDERED: busPIRone HCl 5 MG TAB PO SCH (09:00)
[2021-08-19] MEDS ORDERED: Lisinopril 20 MG TAB PO SCH (09:00)
[2021-08-19] MEDS ORDERED: Furosemide 20 MG TAB PO SCH (09:00)
[2021-08-19] MEDS ORDERED: Enoxaparin Sodium 40 MG/0.4 ML SYRINGE SC SCH (09:00)
[2021-08-19] MEDS ORDERED: Prevnar 13-Val Conj/PF 0.5 ML SYRINGE IM ONE (09:00)
[2021-08-19] MEDS ORDERED: Furosemide 20 MG/2 ML VIAL SLOW IVP SCH (09:00)
[2021-08-19] MEDS ORDERED: Furosemide 40 MG/4 ML VIAL SLOW IVP SCH (09:00)
[2021-08-19] MEDS ORDERED: Tamsulosin HCl 0.4 MG CAP PO SCH (09:00)
[2021-08-19 09:43] VITALS: BP 119/71; TEMP 98
[2021-08-20] MEDS ORDERED: Furosemide 20 MG TAB PO SCH (09:00)
== END 2021-08-19 12:12 | disposition home or self-care (01) | DRG 180 ==
LOC: ERS 07:35 → T4-A 10:28
PROVIDERS: ADMIT Student in an Organized Health Care Education/Training Program; ATTEND Student in an Organized Health Care Education/Training Program
PROC: 30233N1 Transfusion of Nonautologous Red Blood Cells into Peripheral Vein, Percutaneous Approach (ICD-10-PCS; principal; 2021-08-18)
DX: C34.92 Malignant neoplasm of unspecified part of left bronchus or lung (principal); J96.21 Acute and chronic respiratory failure with hypoxia; Z51.5 Encounter for palliative care; Z20.822 Contact with and (suspected) exposure to COVID-19; C34.91 Malignant neoplasm of unspecified part of right bronchus or lung; E11.9 Type 2 diabetes mellitus without complications; I10 Essential (primary) hypertension; F25.9 Schizoaffective disorder, unspecified; F41.9 Anxiety disorder, unspecified; F32.A Depression, unspecified; E78.5 Hyperlipidemia, unspecified; N40.0 Benign prostatic hyperplasia without lower urinary tract symptoms; D63.0 Anemia in neoplastic disease; E87.6 Hypokalemia; F17.210 Nicotine dependence, cigarettes, uncomplicated; Z89.612 Acquired absence of left leg above knee; Z79.51 Long term (current) use of inhaled steroids; Z79.899 Other long term (current) drug therapy; Z88.8 Allergy status to other drugs, medicaments and biological substances
CPT/HCPCS: 36415; 36416; 36430; 71045; 80048; 80053; 81003; 82274; 82550; 82728; 83540; 83550; 83605; 83735; 83880; 84484; 85025; 85610; 85730; 86850; 86900; 86901; 93005; 94640; 94760; 96374; 96375; J1650; J1815; J1885; J1940; J2270; J2930; J7611; J7620; P9016; U0002

== ENCOUNTER 2021-08-24 01:08 | Inpatient (IN) | payer OTHER ==
[2021-08-24 02:05] LABS: #Eosinphils 0.2 thou/uL (0.0-0.7); #Lymphocytes 1.3 thou/uL (1.20-3.40); #Neutrophils 15.6 thou/uL (1.40-6.50); %Basophils 0.2 % (0.0-1.0); %Eosinophils 0.8 % (0.0-10.0); %Monocytes 10.4 % (0.0-10.0); %Neutrophils 81.6 % (42.0-75.0); Hemoglobin 7.7 g/dL (14.0-18.0); Mean Corpuscular HGB CONC 31.2 g/dL (32.0-36.0); Mean Corpuscular Hemoglobin 26.4 pg (27.0-31.0); Mean Corpuscular Volume 84.6 fL (78.0-98.0); Platelet Count 544 thou/uL (130-400); RBC Distribution Width 21.7 % (11.5-14.5); White Blood Cell (WBC) Count 19.2 thou/uL (4.8-10.8)
[2021-08-24] MEDS ORDERED: Furosemide 40 MG/4 ML VIAL ONE (02:14)
[2021-08-24 02:24] LABS: ALT (SGPT) 7 U/L (8-55); AST (SGOT) 13 U/L (5-34); Albumin 2.7 g/dL (3.5-5.0); Alkaline Phosphatase 114 U/L (40-110); Anion Gap 19 mmol/L (10-20); BUN (Urea Nitrogen) 21 mg/dL (8.4-25.7); Bilirubin, Total 0.3 mg/dL (0.2-1.2); Calc. Creatinine Clearance 0 mL/min (70-130); Calcium 8.3 mg/dL (7.8-10.44); Carbon Dioxide 28 mmol/L (22-29); Chloride 88 mmol/L (98-107); Estimated GFR 107; Globulin 3.9 g/dL (2.4-3.5); Glucose 107 mg/dL (70-105); Magnesium 2.1 mg/dL (1.6-2.6); Potassium 3.8 mmol/L (3.5-5.1); Protein, Total 6.6 g/dL (6.0-8.3); Sodium 131 mmol/L (136-145)
[2021-08-24] MEDS ORDERED: Cefepime 2 GM VIAL ONE (03:31)
[2021-08-24] MEDS ORDERED: Milk Of Magnesia 30 ML UDCUP PO PRN (04:32)
[2021-08-24] MEDS ORDERED: Vancomycin 1 GM/200 ML BAG ONE (05:04)
[2021-08-24 05:46] LABS: Hemoglobin A1c 5.4 % (4.0-6.0)
[2021-08-24] MEDS ORDERED: Prevnar 13-Val Conj/PF 0.5 ML SYRINGE IM ONE (07:00)
[2021-08-24 07:31] VITALS: BMI 24.3
[2021-08-24] MEDS: Albuterol Sulfate 1.25 MG/3 ML NEB NEB SCH ×3 (07:42→19:41)
[2021-08-24] MEDS ORDERED: Vancomycin HCl 500 MG in Sodium Chloride 0.9% 100 ML IVPB SCH (08:00)
[2021-08-24 09:50] LABS: Actual Bicarbonate (HCO3a) 35.1 mEq/L (22-28); Base Excess (BEa) 9.9 mEq/L (-2.0 to +3.0); CO2 Tension 52.3 mmHg (35.0-45.0); Calcium, Ionized (arterial) 1.12 mmol/L (1.12-1.30); Carboxyhemoglobin (COHb) 2.4 gm% (0.0-3.0); Hemoglobin (Hb) 8.2 g/dL (14.0-18.0); O2 Tension (PaO2), arterial 72.3 mmHg (80.0-100.0); Potassium - ABG Lab 3.32 mmol/L (3.70-5.30); pH, Arterial 7.45 (7.35-7.45)
[2021-08-24] MEDS: HYDROcodone/Acetaminophen 10/325 mg Tablet PO PRN ×3 (09:50→20:53)
[2021-08-24] MEDS: Lisinopril 20 MG TAB PO SCH (09:50)
[2021-08-24] MEDS: busPIRone HCl 5 MG TAB PO SCH (09:50)
[2021-08-24] MEDS: Tamsulosin HCl 0.4 MG CAP PO SCH (09:51)
[2021-08-24] MEDS: Ferrous Sulfate 325 MG TAB PO SCH ×2 (09:51→17:17)
[2021-08-24] MEDS: Enoxaparin Sodium 40 MG/0.4 ML SYRINGE SC SCH (09:51)
[2021-08-24] MEDS: Furosemide 40 MG/4 ML VIAL SLOW IVP SCH (09:51)
[2021-08-24 10:03] LABS: Puncture Site RBA
[2021-08-24] MEDS ORDERED: Metoclopramide HCl 10 MG/2 ML VIAL IVP PRN (11:08)
[2021-08-24] MEDS: Divalproex Sodium 250 MG (DR) TAB PO SCH ×2 (12:23→20:52)
[2021-08-24] MEDS: methylPREDNISolone Sod Succ 40 MG VIAL IVP SCH (12:40)
[2021-08-24] MEDS: Cefepime 2 GM in Sodium Chloride 0.9% 100 ML IVPB SCH ×2 (12:40→21:00)
[2021-08-24 15:39] LABS: Anion Gap 16 mmol/L (10-20); BUN (Urea Nitrogen) 20 mg/dL (8.4-25.7); Calc. Creatinine Clearance 112 mL/min (70-130); Calcium 8.8 mg/dL (7.8-10.44); Carbon Dioxide 32 mmol/L (22-29); Chloride 88 mmol/L (98-107); Estimated GFR 103; Glucose 143 mg/dL (70-105); Potassium 3.7 mmol/L (3.5-5.1); Sodium 132 mmol/L (136-145)
[2021-08-24] MEDS: hydrOXYzine 25 MG TAB PO SCH (20:53)
[2021-08-24] MEDS: Atorvastatin Calcium 40 MG TAB PO SCH (20:54)
[2021-08-24] MEDS: risperiDONE 1 MG TAB PO SCH (20:54)
[2021-08-24] MEDS: Mirtazapine 15 MG TAB PO SCH (20:54)
[2021-08-24] MEDS ORDERED: hydrOXYzine 25 MG TAB PO SCH (21:00)
[2021-08-24] MEDS ORDERED: Vancomycin 1.5 GRAM/300 ML BAG 1 GM in Premix Bag 1 BAG IVPB SCH (21:00)
[2021-08-24] MEDS: Vancomycin 1 GM in Premix Bag 1 BAG IVPB SCH (21:54)
[2021-08-25] MEDS: methylPREDNISolone Sod Succ 40 MG VIAL IVP SCH ×3 (00:40→23:38)
[2021-08-25] MEDS: Albuterol Sulfate 1.25 MG/3 ML NEB NEB SCH ×4 (00:49→19:06)
[2021-08-25] MEDS: HYDROcodone/Acetaminophen 10/325 mg Tablet PO PRN ×5 (01:10→20:37)
[2021-08-25] MEDS: Cefepime 2 GM in Sodium Chloride 0.9% 100 ML IVPB SCH ×3 (05:25→23:38)
[2021-08-25] MEDS: Tamsulosin HCl 0.4 MG CAP PO SCH (09:32)
[2021-08-25] MEDS: Enoxaparin Sodium 40 MG/0.4 ML SYRINGE SC SCH (09:32)
[2021-08-25] MEDS: Ferrous Sulfate 325 MG TAB PO SCH ×2 (09:32→15:55)
[2021-08-25] MEDS: Lisinopril 20 MG TAB PO SCH (09:32)
[2021-08-25] MEDS: busPIRone HCl 5 MG TAB PO SCH (09:32)
[2021-08-25] MEDS: Vancomycin 1 GM in Premix Bag 1 BAG IVPB SCH ×4 (09:35→22:26)
[2021-08-25] MEDS: Divalproex Sodium 250 MG (DR) TAB PO SCH ×2 (11:30→20:37)
[2021-08-25] MEDS: Furosemide 40 MG/4 ML VIAL SLOW IVP SCH (11:30)
[2021-08-25] MEDS: Atorvastatin Calcium 40 MG TAB PO SCH (20:37)
[2021-08-25] MEDS: hydrOXYzine 25 MG TAB PO SCH (20:38)
[2021-08-25] MEDS: risperiDONE 1 MG TAB PO SCH (20:38)
[2021-08-25] MEDS: Mirtazapine 15 MG TAB PO SCH (20:38)
[2021-08-25 20:40] LABS: Vancomycin, Trough 15.5 ug/mL
[2021-08-26] MEDS: HYDROcodone/Acetaminophen 10/325 mg Tablet PO PRN ×5 (00:11→20:35)
[2021-08-26] MEDS: Divalproex Sodium 250 MG (DR) TAB PO SCH ×3 (00:32→20:34)
[2021-08-26] MEDS: Atorvastatin Calcium 40 MG TAB PO SCH ×2 (00:33→20:34)
[2021-08-26] MEDS: hydrOXYzine 25 MG TAB PO SCH ×2 (00:33→20:34)
[2021-08-26] MEDS: Mirtazapine 15 MG TAB PO SCH ×2 (00:34→20:35)
[2021-08-26] MEDS: risperiDONE 1 MG TAB PO SCH ×2 (00:34→20:35)
[2021-08-26] MEDS: Albuterol Sulfate 1.25 MG/3 ML NEB NEB SCH ×7 (00:41→23:55)
[2021-08-26] MEDS: Morphine 2 MG/ML VIAL SLOW IVP PRN ×5 (01:47→23:25)
[2021-08-26] MEDS: Cefepime 2 GM in Sodium Chloride 0.9% 100 ML IVPB SCH ×3 (05:02→21:48)
[2021-08-26 05:04] LABS: ALT (SGPT) 13 U/L (8-55); AST (SGOT) 15 U/L (5-34); Albumin 2.7 g/dL (3.5-5.0); Alkaline Phosphatase 92 U/L (40-110); Anion Gap 14 mmol/L (10-20); BUN (Urea Nitrogen) 25 mg/dL (8.4-25.7); Bilirubin, Total 0.4 mg/dL (0.2-1.2); Calc. Creatinine Clearance 131 mL/min (70-130); Calcium 9.5 mg/dL (7.8-10.44); Carbon Dioxide 36 mmol/L (22-29); Chloride 91 mmol/L (98-107); Estimated GFR 108; Globulin 4.8 g/dL (2.4-3.5); Glucose 229 mg/dL (70-105); Magnesium 2.2 mg/dL (1.6-2.6); Potassium 4.7 mmol/L (3.5-5.1); Protein, Total 7.5 g/dL (6.0-8.3); Sodium 136 mmol/L (136-145)
[2021-08-26 05:49] LABS: #Lymphocytes 0.8 thou/uL (1.20-3.40); #Monocytes 1.1 thou/uL (0.11-0.59); #Neutrophils 16.7 thou/uL (1.40-6.50); %Basophils 0.1 % (0.0-1.0); %Eosinophils 0.1 % (0.0-10.0); %Lymphocytes 4.1 % (21.0-51.0); %Monocytes 5.8 % (0.0-10.0); %Neutrophils 90.1 % (42.0-75.0); Anisocytosis MODERATE=16-30 cells (100X) (0-5/hpf); Hemoglobin 7.7 g/dL (14.0-18.0); Hypochromia SLIGHT = 6-15 cells (100X) (0-5/hpf); MDiff Complete? YES; Mean Corpuscular HGB CONC 29.3 g/dL (32.0-36.0); Mean Corpuscular Hemoglobin 25.8 pg (27.0-31.0); Mean Corpuscular Volume 88.3 fL (78.0-98.0); Mean Platelet Volume 6.8 fL (7.4-10.4); Platelet Count 499 thou/uL (130-400); Platelet Morphology Comment Appears Increased; RBC Distribution Width 21.8 % (11.5-14.5); Red Blood Cell (RBC) Count 2.97 mill/uL (4.70-6.10); White Blood Cell (WBC) Count 18.6 thou/uL (4.8-10.8)
[2021-08-26] MEDS ORDERED: HumaLOG 300 UNITS/3 ML VIAL SC PRN (06:35)
[2021-08-26] MEDS ORDERED: Dextrose 5% in Water 1,000 ML IV PRN (06:35)
[2021-08-26] MEDS ORDERED: Dextrose 50% Abboject 50 ML SYRINGE SLOW IVP PRN (06:35)
[2021-08-26] MEDS: Ferrous Sulfate 325 MG TAB PO SCH ×2 (09:34→17:28)
[2021-08-26] MEDS: busPIRone HCl 5 MG TAB PO SCH (09:34)
[2021-08-26] MEDS: Lisinopril 20 MG TAB PO SCH (09:35)
[2021-08-26] MEDS: Tamsulosin HCl 0.4 MG CAP PO SCH (09:35)
[2021-08-26] MEDS: Nicotine 21 MG PATCH TD SCH (09:35)
[2021-08-26] MEDS: Polyethylene Glycol 3350 17 GM Packet PO SCH (09:37)
[2021-08-26] MEDS: Enoxaparin Sodium 40 MG/0.4 ML SYRINGE SC SCH (09:37)
[2021-08-26] MEDS: Vancomycin 1 GM in Premix Bag 1 BAG IVPB SCH ×2 (09:38→20:35)
[2021-08-26] MEDS: Furosemide 40 MG/4 ML VIAL SLOW IVP SCH (09:39)
[2021-08-26] MEDS ORDERED: Senokot 8.6 MG TAB PO PRN (09:59)
[2021-08-26] MEDS ORDERED: Docusate 100 MG CAP PO SCH (10:00)
[2021-08-26] MEDS: methylPREDNISolone Sod Succ 40 MG VIAL IVP SCH ×2 (12:58→22:20)
[2021-08-26] MEDS: Docusate 100 MG CAP PO SCH (20:35)
[2021-08-27] MEDS: HYDROcodone/Acetaminophen 10/325 mg Tablet PO PRN ×2 (01:05→09:11)
[2021-08-27] MEDS: Cefepime 2 GM in Sodium Chloride 0.9% 100 ML IVPB SCH ×2 (05:06→14:06)
[2021-08-27] MEDS: Morphine 2 MG/ML VIAL SLOW IVP PRN ×2 (06:26→10:28)
[2021-08-27] MEDS: Albuterol Sulfate 1.25 MG/3 ML NEB NEB SCH ×3 (07:33→12:52)
[2021-08-27 08:16] LABS: Vancomycin, Trough 13.7 ug/mL
[2021-08-27] MEDS: Ferrous Sulfate 325 MG TAB PO SCH (09:04)
[2021-08-27] MEDS: Furosemide 40 MG/4 ML VIAL SLOW IVP SCH (09:04)
[2021-08-27] MEDS: Polyethylene Glycol 3350 17 GM Packet PO SCH (09:04)
[2021-08-27] MEDS: Docusate 100 MG CAP PO SCH (09:04)
[2021-08-27] MEDS: Enoxaparin Sodium 40 MG/0.4 ML SYRINGE SC SCH (09:04)
[2021-08-27] MEDS: Tamsulosin HCl 0.4 MG CAP PO SCH (09:04)
[2021-08-27] MEDS: Nicotine 21 MG PATCH TD SCH (09:04)
[2021-08-27] MEDS: busPIRone HCl 5 MG TAB PO SCH (09:05)
[2021-08-27] MEDS: Lisinopril 20 MG TAB PO SCH (09:05)
[2021-08-27] MEDS: Divalproex Sodium 250 MG (DR) TAB PO SCH (09:05)
[2021-08-27] MEDS: Vancomycin 1 GM in Premix Bag 1 BAG IVPB SCH (09:06)
[2021-08-27 11:20] VITALS: TEMP 98.2
[2021-08-27] MEDS: methylPREDNISolone Sod Succ 40 MG VIAL IVP SCH (11:55)
[2021-08-27 13:13] VITALS: BP 133/79
== END 2021-08-27 15:05 | disposition home or self-care (01) | DRG 180 ==
LOC: ERS 01:08 → T4-B 03:26 → IMCU/EMU 07:22 → OBSVTOIN 07:31 → 2NO 08-25 14:07
PROVIDERS: ADMIT Family Medicine; ATTEND Student in an Organized Health Care Education/Training Program
PROC: 5A0935A Assistance with Respiratory Ventilation, Less than 24 Consecutive Hours, High Flow/Velocity Cannula (ICD-10-PCS; principal; 2021-08-24)
DX: C34.91 Malignant neoplasm of unspecified part of right bronchus or lung (principal); J18.9 Pneumonia, unspecified organism; J96.21 Acute and chronic respiratory failure with hypoxia; E87.1 Hypo-osmolality and hyponatremia; J91.0 Malignant pleural effusion; Y95 Nosocomial condition; F25.9 Schizoaffective disorder, unspecified; F41.9 Anxiety disorder, unspecified; F32.A Depression, unspecified; E11.9 Type 2 diabetes mellitus without complications; E78.5 Hyperlipidemia, unspecified; I10 Essential (primary) hypertension; R94.31 Abnormal electrocardiogram [ECG] [EKG]; D64.9 Anemia, unspecified; R79.89 Other specified abnormal findings of blood chemistry; N40.0 Benign prostatic hyperplasia without lower urinary tract symptoms; Z28.21 Immunization not carried out because of patient refusal; Z28.81 Immunization not carried out due to patient having had the disease; Z91.19 Patient's noncompliance with other medical treatment and regimen; Z99.81 Dependence on supplemental oxygen; Z88.8 Allergy status to other drugs, medicaments and biological substances; Z79.899 Other long term (current) drug therapy; Z89.612 Acquired absence of left leg above knee
CPT/HCPCS: 36415; 36416; 36600; 71045; 80053; 80202; 82805; 83036; 83605; 83735; 83880; 84145; 84484; 85025; 86850; 86900; 86901; 87040; 93005; 96365; 96367; 96375; G0378; J0692; J1650; J1940; J2270; J2920; J3370; J3490

== ENCOUNTER 2021-09-01 04:23 | Inpatient (IN) | payer OTHER ==
[2021-09-01 05:56] LABS: #Eosinphils 0.1 thou/uL (0.0-0.7); #Lymphocytes 1.2 thou/uL (1.20-3.40); #Monocytes 1.9 thou/uL (0.11-0.59); #Neutrophils 14.8 thou/uL (1.40-6.50); %Basophils 0.2 % (0.0-1.0); %Eosinophils 0.8 % (0.0-10.0); %Lymphocytes 6.6 % (21.0-51.0); %Monocytes 10.7 % (0.0-10.0); %Neutrophils 81.8 % (42.0-75.0); Hemoglobin 6.5 g/dL (14.0-18.0); Mean Corpuscular HGB CONC 30.2 g/dL (32.0-36.0); Mean Platelet Volume 7.3 fL (7.4-10.4); Platelet Count 475 thou/uL (130-400); RBC Distribution Width 22.6 % (11.5-14.5); Red Blood Cell (RBC) Count 2.49 mill/uL (4.70-6.10); White Blood Cell (WBC) Count 18.1 thou/uL (4.8-10.8)
[2021-09-01 06:24] LABS: ALT (SGPT) 12 U/L (8-55); AST (SGOT) 10 U/L (5-34); Albumin 2.3 g/dL (3.5-5.0); Alkaline Phosphatase 72 U/L (40-110); Anion Gap 14 mmol/L (10-20); BUN (Urea Nitrogen) 38 mg/dL (8.4-25.7); Bilirubin, Total 0.3 mg/dL (0.2-1.2); Calc. Creatinine Clearance 0 mL/min (70-130); Calcium 7.7 mg/dL (7.8-10.44); Carbon Dioxide 30 mmol/L (22-29); Chloride 91 mmol/L (98-107); Estimated GFR 56; Globulin 3.1 g/dL (2.4-3.5); Glucose 91 mg/dL (70-105); Potassium 4.3 mmol/L (3.5-5.1); Protein, Total 5.4 g/dL (6.0-8.3); Sodium 131 mmol/L (136-145)
[2021-09-01 06:47] LABS: CKMB 0.8 ng/mL (0-6.6)
[2021-09-01 07:26] LABS: Bilirubin Negative (Negative); Blood, Urine Negative (Negative); Clarity Clear (Clear); Glucose, Urine (Dipstick) Normal (Negative); Ketone, Urine Negative (Negative); Leukocyte Negative Leu/uL (Negative); Nitrite Negative (Negative); Protein, Urine (Dipstick) 20 mg/dL (Neg-Trace); Specific Gravity, Urine 1.014 (1.002-1.036); Urobilinogen Normal mg/dL (Less than 2)
[2021-09-01] MEDS ORDERED: Cefepime 2 GM VIAL ONE (07:42)
[2021-09-01] MEDS ORDERED: Vancomycin 1 GM/200 ML BAG ONE (07:42)
[2021-09-01] MEDS ORDERED: Aspirin Chewable 81 MG TAB ONE (09:00)
[2021-09-01 10:41] LABS: Troponin I Less than 0.010 ng/mL (< 0.028)
[2021-09-01] MEDS ORDERED: Bisacodyl 5 MG TAB PO PRN (10:49)
[2021-09-01] MEDS ORDERED: Bisacodyl 10 MG SUPP PR PRN (10:49)
[2021-09-01] MEDS ORDERED: Senokot S 8.6-50 MG TAB PO PRN (10:49)
[2021-09-01] MEDS ORDERED: Calcium Carbonate 500 MG ChewTAB PO PRN (10:49)
[2021-09-01] MEDS ORDERED: Acetaminophen 500 MG TAB PO PRN (10:54)
[2021-09-01] MEDS ORDERED: Milk Of Magnesia 30 ML UDCUP PO PRN (11:09)
[2021-09-01] MEDS ORDERED: HYDROcodone/Acetaminophen 10/325 mg Tablet PO PRN (11:09)
[2021-09-01 13:52] LABS: Troponin I Less than 0.010 ng/mL (< 0.028)
[2021-09-01 16:01] VITALS: BMI 25.7
[2021-09-01] MEDS ORDERED: Ferrous Sulfate 325 MG TAB PO SCH (17:00)
[2021-09-01 17:15] LABS: Hemoglobin 7.8 g/dL (14.0-18.0)
[2021-09-01 19:43] VITALS: BP 101/54; TEMP 98.1
[2021-09-01] MEDS ORDERED: risperiDONE 1 MG TAB PO SCH (21:00)
[2021-09-01] MEDS ORDERED: Atorvastatin Calcium 40 MG TAB PO SCH (21:00)
[2021-09-01] MEDS ORDERED: hydrOXYzine 25 MG TAB PO SCH (21:00)
[2021-09-01] MEDS ORDERED: Famotidine 20 MG TAB PO SCH (21:00)
[2021-09-01] MEDS ORDERED: Furosemide 20 MG TAB PO SCH (21:00)
[2021-09-01] MEDS ORDERED: Divalproex Sodium 250 MG (DR) TAB PO SCH (21:00)
[2021-09-01] MEDS ORDERED: Mirtazapine 15 MG TAB PO SCH (21:00)
[2021-09-01] MEDS ORDERED: guaiFENesin ER 600 MG TAB PO SCH (21:00)
[2021-09-01] MEDS ORDERED: Divalproex Sodium DR 500 MG TAB PO SCH ×2 (21:00)
[2021-09-02] MEDS ORDERED: Tamsulosin HCl 0.4 MG CAP PO SCH (09:00)
[2021-09-02] MEDS ORDERED: Enoxaparin Sodium 40 MG/0.4 ML SYRINGE SC SCH (09:00)
[2021-09-02] MEDS ORDERED: busPIRone HCl 5 MG TAB PO SCH (09:00)
== END 2021-09-01 21:05 | disposition left against medical advice (07) | DRG 871 ==
LOC: ERS 04:23 → ERHOLD 09:33 → 2NO 15:28
PROVIDERS: ADMIT Family Medicine; ATTEND Family Medicine
DX: A41.9 Sepsis, unspecified organism (principal); J96.01 Acute respiratory failure with hypoxia; N17.9 Acute kidney failure, unspecified; Z20.822 Contact with and (suspected) exposure to COVID-19; E11.9 Type 2 diabetes mellitus without complications; E78.5 Hyperlipidemia, unspecified; N40.0 Benign prostatic hyperplasia without lower urinary tract symptoms; F32.A Depression, unspecified; F41.9 Anxiety disorder, unspecified; F17.210 Nicotine dependence, cigarettes, uncomplicated; D64.81 Anemia due to antineoplastic chemotherapy; T45.1X5A Adverse effect of antineoplastic and immunosuppressive drugs, initial encounter; F25.9 Schizoaffective disorder, unspecified; Z53.29 Procedure and treatment not carried out because of patient's decision for other reasons; Z89.512 Acquired absence of left leg below knee; Z79.899 Other long term (current) drug therapy; Z88.8 Allergy status to other drugs, medicaments and biological substances
CPT/HCPCS: 36415; 36416; 36430; 71045; 80053; 81003; 82274; 82553; 83605; 83880; 84484; 85025; 86850; 86900; 86901; 87040; 93005; 94640; J0692; J3370; J7620; P9016; U0003; U0005

== ENCOUNTER 2021-09-04 14:29 | Emergency (ER) | payer OTHER ==
[2021-09-04 15:02] LABS: Bilirubin Negative (Negative); Blood, Urine Negative (Negative); Clarity Clear (Clear); Glucose, Urine (Dipstick) Normal (Negative); Ketone, Urine Negative (Negative); Leukocyte Negative Leu/uL (Negative); Nitrite Negative (Negative); Protein, Urine (Dipstick) Negative (Neg-Trace); Specific Gravity, Urine 1.008 (1.002-1.036); Urobilinogen Normal mg/dL (Less than 2); pH, Urine 5.5 (5.0-9.0)
[2021-09-04 15:36] LABS: #Eosinphils 0.1 thou/uL (0.0-0.7); #Lymphocytes 1.7 thou/uL (1.20-3.40); #Monocytes 1.8 thou/uL (0.11-0.59); #Neutrophils 12.1 thou/uL (1.40-6.50); %Basophils 0.1 % (0.0-1.0); %Eosinophils 0.7 % (0.0-10.0); %Lymphocytes 10.5 % (21.0-51.0); %Monocytes 11.7 % (0.0-10.0); Mean Corpuscular HGB CONC 31.5 g/dL (32.0-36.0); Mean Corpuscular Hemoglobin 26.5 pg (27.0-31.0); Mean Corpuscular Volume 84.2 fL (78.0-98.0); Mean Platelet Volume 6.9 fL (7.4-10.4); Platelet Count 494 thou/uL (130-400); RBC Distribution Width 22.5 % (11.5-14.5); Red Blood Cell (RBC) Count 2.63 mill/uL (4.70-6.10); White Blood Cell (WBC) Count 15.8 thou/uL (4.8-10.8)
[2021-09-04 15:53] LABS: ALT (SGPT) 12 U/L (8-55); AST (SGOT) 15 U/L (5-34); Albumin 2.6 g/dL (3.5-5.0); Alkaline Phosphatase 79 U/L (40-110); Anion Gap 12 mmol/L (10-20); BUN (Urea Nitrogen) 19 mg/dL (8.4-25.7); Bilirubin, Total 0.4 mg/dL (0.2-1.2); Calc. Creatinine Clearance 0 mL/min (70-130); Calcium 8.8 mg/dL (7.8-10.44); Carbon Dioxide 31 mmol/L (22-29); Chloride 92 mmol/L (98-107); Estimated GFR 110; Globulin 4.2 g/dL (2.4-3.5); Glucose 94 mg/dL (70-105); Potassium 4.3 mmol/L (3.5-5.1); Protein, Total 6.8 g/dL (6.0-8.3); Sodium 131 mmol/L (136-145)
== END 2021-09-04 18:58 | disposition home or self-care (01) ==
LOC: ERS 14:29
DX: R06.02 Shortness of breath (principal); E11.9 Type 2 diabetes mellitus without complications; F17.210 Nicotine dependence, cigarettes, uncomplicated; E78.00 Pure hypercholesterolemia, unspecified; Z79.899 Other long term (current) drug therapy
CPT/HCPCS: 36415; 71045; 80053; 81003; 83880; 84484; 85025; 93005

== ENCOUNTER 2021-09-05 05:01 | Emergency (ER) | payer OTHER | END 2021-09-05 07:40 | disposition home or self-care (01) | LOC: ERS 05:01 | DX: R06.02 Shortness of breath (principal); E11.9 Type 2 diabetes mellitus without complications; E78.5 Hyperlipidemia, unspecified; F17.210 Nicotine dependence, cigarettes, uncomplicated; Z79.899 Other long term (current) drug therapy; E78.00 Pure hypercholesterolemia, unspecified | CPT/HCPCS: 36415; 71045; 80053; 81003; 83880; 84484; 85025; 93005; 94640; J7620 ==

== ENCOUNTER 2021-09-14 03:12 | Emergency (ER) | payer OTHER ==
[2021-09-14 03:58] LABS: #Eosinphils 0.2 thou/uL (0.0-0.7); #Lymphocytes 2.3 thou/uL (1.20-3.40); #Monocytes 1.6 thou/uL (0.11-0.59); #Neutrophils 10.6 thou/uL (1.40-6.50); %Basophils 0.1 % (0.0-1.0); %Eosinophils 1.4 % (0.0-10.0); %Lymphocytes 15.7 % (21.0-51.0); %Neutrophils 71.9 % (42.0-75.0); Hemoglobin 7.3 g/dL (14.0-18.0); Mean Corpuscular HGB CONC 30.9 g/dL (32.0-36.0); Mean Corpuscular Hemoglobin 25.6 pg (27.0-31.0); Mean Corpuscular Volume 82.8 fL (78.0-98.0); Mean Platelet Volume 6.9 fL (7.4-10.4); Platelet Count 493 thou/uL (130-400); RBC Distribution Width 21.4 % (11.5-14.5); Red Blood Cell (RBC) Count 2.84 mill/uL (4.70-6.10); White Blood Cell (WBC) Count 14.7 thou/uL (4.8-10.8)
[2021-09-14 04:20] LABS: ALT (SGPT) 8 U/L (8-55); AST (SGOT) 13 U/L (5-34); Albumin 2.6 g/dL (3.5-5.0); Alkaline Phosphatase 98 U/L (40-110); Anion Gap 12 mmol/L (10-20); BUN (Urea Nitrogen) 25 mg/dL (8.4-25.7); Bilirubin, Total 0.2 mg/dL (0.2-1.2); Calc. Creatinine Clearance 0 mL/min (70-130); Calcium 8.4 mg/dL (7.8-10.44); Carbon Dioxide 26 mmol/L (22-29); Chloride 96 mmol/L (98-107); Estimated GFR 77; Globulin 4.1 g/dL (2.4-3.5); Glucose 134 mg/dL (70-105); Protein, Total 6.7 g/dL (6.0-8.3); Sodium 130 mmol/L (136-145)
== END 2021-09-14 05:10 | disposition home or self-care (01) ==
LOC: ERS 03:12
DX: D64.9 Anemia, unspecified (principal); E11.9 Type 2 diabetes mellitus without complications; E78.5 Hyperlipidemia, unspecified; J44.9 Chronic obstructive pulmonary disease, unspecified; F17.210 Nicotine dependence, cigarettes, uncomplicated; Z79.899 Other long term (current) drug therapy
CPT/HCPCS: 36415; 71045; 80053; 83880; 84484; 85025; 93005

== ENCOUNTER 2021-09-17 14:35 | Emergency (ER) | payer OTHER ==
[~2021-09-17 14:35] MED LIST changes: -Iopamidol 370 76% 100 ML VIAL ONE; +Iopamidol-370 76% 500 ML 1 ML ONE
[2021-09-17 15:21] LABS: #Eosinphils 0.1 thou/uL (0.0-0.7); #Lymphocytes 1.4 thou/uL (1.20-3.40); #Monocytes 1.6 thou/uL (0.11-0.59); #Neutrophils 12.2 thou/uL (1.40-6.50); %Eosinophils 0.7 % (0.0-10.0); %Lymphocytes 8.8 % (21.0-51.0); %Monocytes 10.6 % (0.0-10.0); %Neutrophils 79.8 % (42.0-75.0); Hemoglobin 6.7 g/dL (14.0-18.0); Mean Corpuscular HGB CONC 30.2 g/dL (32.0-36.0); Mean Corpuscular Hemoglobin 24.7 pg (27.0-31.0); Mean Corpuscular Volume 81.7 fL (78.0-98.0); Mean Platelet Volume 6.9 fL (7.4-10.4); Platelet Count 579 thou/uL (130-400); RBC Distribution Width 21.3 % (11.5-14.5); Red Blood Cell (RBC) Count 2.73 mill/uL (4.70-6.10); White Blood Cell (WBC) Count 15.3 thou/uL (4.8-10.8)
[2021-09-17 15:33] LABS: ALT (SGPT) Less than 7 U/L (8-55); AST (SGOT) 13 U/L (5-34); Albumin 2.5 g/dL (3.5-5.0); Alkaline Phosphatase 96 U/L (40-110); Anion Gap 16 mmol/L (10-20); BUN (Urea Nitrogen) 26 mg/dL (8.4-25.7); Bilirubin, Total 0.2 mg/dL (0.2-1.2); Calc. Creatinine Clearance 0 mL/min (70-130); Calcium 8.1 mg/dL (7.8-10.44); Carbon Dioxide 25 mmol/L (22-29); Chloride 96 mmol/L (98-107); Estimated GFR 84; Globulin 3.4 g/dL (2.4-3.5); Glucose 112 mg/dL (70-105); Lipase 40 U/L (8-78); Potassium 4.7 mmol/L (3.5-5.1); Protein, Total 5.9 g/dL (6.0-8.3); Sodium 132 mmol/L (136-145)
[2021-09-17] MEDS ORDERED: Acetaminophen 500 MG TAB ONE (16:31)
[2021-09-17] MEDS ORDERED: Famotidine/PF 20 mg/2ml Vial ONE (19:07)
[2021-09-17] MEDS ORDERED: Ketorolac Tromethamine 30 MG/ML VIAL ONE (19:07)
[2021-09-17] MEDS ORDERED: methylPREDNISolone Sod Succ/PF 125 MG/2 ML VIAL ONE (19:07)
[2021-09-17 19:26] LABS: Bilirubin Negative (Negative); Blood, Urine Negative (Negative); Clarity Clear (Clear); Glucose, Urine (Dipstick) Normal (Negative); Ketone, Urine Negative (Negative); Leukocyte Negative Leu/uL (Negative); Nitrite Negative (Negative); Protein, Urine (Dipstick) 20 mg/dL (Neg-Trace); Specific Gravity, Urine 1.023 (1.002-1.036); Urobilinogen Normal mg/dL (Less than 2); pH, Urine 5.5 (5.0-9.0)
[2021-09-17] MEDS ORDERED: Albuterol Sulfate 2.5 mg/3 ml Neb ONE (19:28)
[2021-09-18] MEDS ORDERED: CEFAZOLIN 2 GM VIAL ONE (04:32)
== END 2021-09-17 21:50 | disposition home or self-care (01) ==
LOC: ERS 14:35
DX: R91.8 Other nonspecific abnormal finding of lung field (principal); D50.0 Iron deficiency anemia secondary to blood loss (chronic); I95.9 Hypotension, unspecified; E11.9 Type 2 diabetes mellitus without complications; E78.5 Hyperlipidemia, unspecified; J44.9 Chronic obstructive pulmonary disease, unspecified; F17.210 Nicotine dependence, cigarettes, uncomplicated; Z89.612 Acquired absence of left leg above knee; Z79.899 Other long term (current) drug therapy; Z85.118 Personal history of other malignant neoplasm of bronchus and lung
CPT/HCPCS: 36415; 36416; 36430; 71045; 71275; 80053; 81003; 83690; 83880; 84484; 85025; 86850; 86900; 86901; 93005; 94640; 96361; 96374; 96375; J1885; J2930; J7611; J7620; P9016; Q9967; S0028

== ENCOUNTER 2021-10-01 14:12 | Inpatient (IN) | payer OTHER ==
[2021-10-01] MEDS ORDERED: Ketorolac Tromethamine 30 MG/ML VIAL ONE (14:33)
[2021-10-01 15:14] LABS: #Lymphocytes 1.2 thou/uL (1.20-3.40); #Monocytes 2.2 thou/uL (0.11-0.59); #Neutrophils 15.2 thou/uL (1.40-6.50); %Eosinophils 0.1 % (0.0-10.0); %Lymphocytes 6.4 % (21.0-51.0); %Monocytes 11.9 % (0.0-10.0); %Neutrophils 81.5 % (42.0-75.0); Mean Corpuscular HGB CONC 31.3 g/dL (32.0-36.0); Mean Corpuscular Hemoglobin 25.4 pg (27.0-31.0); Mean Corpuscular Volume 81.1 fL (78.0-98.0); Mean Platelet Volume 7.7 fL (7.4-10.4); Platelet Count 414 thou/uL (130-400); Red Blood Cell (RBC) Count 2.37 mill/uL (4.70-6.10); White Blood Cell (WBC) Count 18.7 thou/uL (4.8-10.8)
[2021-10-01 15:27] LABS: INR-International Normal Ratio 1.2; Prothrombin Time 15.5 sec (12.0-14.7)
[2021-10-01 15:37] LABS: ALT (SGPT) Less than 7 U/L (8-55); AST (SGOT) 13 U/L (5-34); Albumin 2.7 g/dL (3.5-5.0); Alkaline Phosphatase 87 U/L (40-110); Anion Gap 16 mmol/L (10-20); BUN (Urea Nitrogen) 15 mg/dL (8.4-25.7); Bilirubin, Total 0.5 mg/dL (0.2-1.2); Calc. Creatinine Clearance 0 mL/min (70-130); Calcium 8.5 mg/dL (7.8-10.44); Carbon Dioxide 33 mmol/L (22-29); Chloride 86 mmol/L (98-107); Estimated GFR 112; Globulin 3.9 g/dL (2.4-3.5); Glucose 94 mg/dL (70-105); Potassium 4.3 mmol/L (3.5-5.1); Protein, Total 6.6 g/dL (6.0-8.3); Sodium 131 mmol/L (136-145)
[2021-10-01 19:29] LABS: Bacteria/HPF None Seen HPF (None Seen); Bilirubin Negative (Negative); Blood, Urine Negative (Negative); Clarity Clear (Clear); Glucose, Urine (Dipstick) Normal (Negative); Ketone, Urine Trace mg/dL (Negative); Leukocyte Negative Leu/uL (Negative); Nitrite Negative (Negative); Protein, Urine (Dipstick) 30 mg/dL (Neg-Trace); RBC/HPF 0-3 HPF (0-3); Specific Gravity, Urine 1.046 (1.002-1.036); Squamous Epithelial None Seen HPF (0-3); Urobilinogen Normal mg/dL (Less than 2); WBC/HPF 0-3 HPF (0-3); pH, Urine 5.5 (5.0-9.0)
[2021-10-02 05:01] LABS: #Lymphocytes 1.4 thou/uL (1.20-3.40); #Monocytes 2.1 thou/uL (0.11-0.59); #Neutrophils 16.3 thou/uL (1.40-6.50); %Eosinophils 0.1 % (0.0-10.0); %Lymphocytes 7.2 % (21.0-51.0); %Monocytes 10.7 % (0.0-10.0); Hemoglobin 7.9 g/dL (14.0-18.0); Mean Corpuscular HGB CONC 30.7 g/dL (32.0-36.0); Mean Corpuscular Volume 81.6 fL (78.0-98.0); Mean Platelet Volume 7.7 fL (7.4-10.4); Platelet Count 450 thou/uL (130-400); RBC Distribution Width 19.7 % (11.5-14.5); Red Blood Cell (RBC) Count 3.15 mill/uL (4.70-6.10); White Blood Cell (WBC) Count 19.8 thou/uL (4.8-10.8)
[2021-10-02 05:25] LABS: ALT (SGPT) 10 U/L (8-55); AST (SGOT) 20 U/L (5-34); Alkaline Phosphatase 90 U/L (40-110); Anion Gap 18 mmol/L (10-20); BUN (Urea Nitrogen) 19 mg/dL (8.4-25.7); Bilirubin, Total 0.9 mg/dL (0.2-1.2); Calc. Creatinine Clearance 0 mL/min (70-130); Calcium 9.1 mg/dL (7.8-10.44); Carbon Dioxide 32 mmol/L (22-29); Chloride 84 mmol/L (98-107); Estimated GFR 110; Globulin 4.3 g/dL (2.4-3.5); Glucose 102 mg/dL (70-105); Potassium 4.3 mmol/L (3.5-5.1); Protein, Total 7.3 g/dL (6.0-8.3); Sodium 130 mmol/L (136-145)
[2021-10-02] MEDS ORDERED: Lorazepam 1 MG TAB PO PRN (06:15)
[2021-10-02] MEDS ORDERED: Albuterol Sulfate 2.5 mg/3 ml Neb NEB PRN (06:47)
[2021-10-02] MEDS ORDERED: Famotidine 20 MG TAB ONE (08:22)
[2021-10-02] MEDS ORDERED: Potassium Chloride 20 MEQ TAB ONE (08:22)
[2021-10-02] MEDS: Ferrous Sulfate 325 MG TAB PO SCH ×2 (09:10→21:24)
[2021-10-02] MEDS: Potassium Chloride 20 MEQ TAB PO SCH (09:10)
[2021-10-02] MEDS: busPIRone HCl 10 MG TAB PO SCH ×3 (09:11→21:30)
[2021-10-02] MEDS: Famotidine 20 MG TAB PO SCH ×2 (09:15→21:24)
[2021-10-02] MEDS: Lisinopril 2.5 MG TAB PO SCH (09:15)
[2021-10-02] MEDS: Furosemide 20 MG TAB PO SCH ×2 (09:16→21:24)
[2021-10-02] MEDS: Divalproex Sodium DR 500 MG TAB PO SCH ×2 (09:16→21:24)
[2021-10-02 11:22] LABS: SARS-CoV-2 NAA Rapid Test Not Detected (NotDetected)
[2021-10-02] MEDS ORDERED: Prevnar 13-Val Conj/PF 0.5 ML SYRINGE IM ONE (12:30)
[2021-10-02 14:46] VITALS: BMI 20.7
[2021-10-02] MEDS ORDERED: fentaNYL 75 mcg/hour Patch TD SCH (15:30)
[2021-10-02] MEDS: Morphine IR Tab 15 MG TAB PO PRN (15:53)
[2021-10-02] MEDS: Acetaminophen 325 MG TAB PO PRN (16:16)
[2021-10-02] MEDS ORDERED: Ondansetron ORAL SOLN. 4 MG/5 ML UDCUP PO PRN (16:22)
[2021-10-02] MEDS ORDERED: Famotidine 20 MG TAB PO SCH (16:30)
[2021-10-02] MEDS ORDERED: Ketorolac Tromethamine 30 MG/ML VIAL IVP SCH (18:45)
[2021-10-02] MEDS: Morphine 2 MG/ML VIAL SLOW IVP PRN (20:56)
[2021-10-02] MEDS: hydrOXYzine 25 MG TAB PO SCH (21:24)
[2021-10-02] MEDS: Atorvastatin Calcium 40 MG TAB PO SCH (21:24)
[2021-10-02] MEDS: Mirtazapine 15 MG TAB PO SCH (21:24)
[2021-10-02] MEDS: risperiDONE 1 MG TAB PO SCH (21:30)
[2021-10-03] MEDS: Morphine IR Tab 15 MG TAB PO PRN (00:17)
[2021-10-03 03:27] LABS: Hemoglobin 7.5 g/dL (14.0-18.0); Mean Corpuscular HGB CONC 30.5 g/dL (32.0-36.0); Mean Platelet Volume 7.6 fL (7.4-10.4); Platelet Count 393 thou/uL (130-400); RBC Distribution Width 19.6 % (11.5-14.5); Red Blood Cell (RBC) Count 2.99 mill/uL (4.70-6.10)
[2021-10-03 05:41] LABS: Band 15 % (5-11); Lymphocytes 13 % (21-51); MDiff Complete? YES; Monocytes 12 % (0-10); Neutrophil 60 % (42-75)
[2021-10-03] MEDS ORDERED: Polyethylene Glycol 3350 17 GM Packet PO SCH (09:00)
[2021-10-03] MEDS: Furosemide 20 MG TAB PO SCH ×2 (09:58→20:35)
[2021-10-03] MEDS: Potassium Chloride 20 MEQ TAB PO SCH (09:58)
[2021-10-03] MEDS: Famotidine 20 MG TAB PO SCH ×2 (09:59→20:35)
[2021-10-03] MEDS: Divalproex Sodium DR 500 MG TAB PO SCH ×2 (09:59→20:35)
[2021-10-03] MEDS: Ferrous Sulfate 325 MG TAB PO SCH ×2 (09:59→20:35)
[2021-10-03] MEDS: Lisinopril 2.5 MG TAB PO SCH (10:00)
[2021-10-03] MEDS: busPIRone HCl 10 MG TAB PO SCH (10:01)
[2021-10-03] MEDS ORDERED: fentaNYL 75 mcg/hour Patch TD SCH (10:55)
[2021-10-03] MEDS ORDERED: Senokot S 8.6-50 MG TAB PO PRN (12:06)
[2021-10-03] MEDS: Morphine 2 MG/ML VIAL SLOW IVP PRN (12:06)
[2021-10-03 12:27] VITALS: BP 120/72
[2021-10-03] MEDS ORDERED: Morphine 2 MG/ML VIAL SLOW IVP PRN (13:46)
[2021-10-03] MEDS: Acetaminophen 325 MG TAB PO PRN ×2 (13:52→19:22)
[2021-10-03] MEDS ORDERED: Lorazepam 1 MG TAB PO PRN ×2 (17:10→17:25)
[2021-10-03] MEDS: hydrOXYzine 25 MG TAB PO SCH (20:35)
[2021-10-03] MEDS: risperiDONE 1 MG TAB PO SCH (20:35)
[2021-10-03] MEDS: Atorvastatin Calcium 40 MG TAB PO SCH (20:35)
[2021-10-03] MEDS: Mirtazapine 15 MG TAB PO SCH (20:35)
[2021-10-03] MEDS: Polyethylene Glycol 3350 17 GM Packet PO SCH (20:36)
[2021-10-03] MEDS ORDERED: Senokot S 8.6-50 MG TAB PO SCH (21:00)
[2021-10-04] MEDS: Morphine 2 MG/ML VIAL SLOW IVP PRN ×2 (00:42→14:24)
[2021-10-04 03:55] LABS: Hemoglobin 6.7 g/dL (14.0-18.0); Mean Corpuscular HGB CONC 29.8 g/dL (32.0-36.0); Mean Corpuscular Hemoglobin 25.1 pg (27.0-31.0); Mean Corpuscular Volume 84.1 fL (78.0-98.0); Mean Platelet Volume 7.7 fL (7.4-10.4); Platelet Count 396 thou/uL (130-400); RBC Distribution Width 19.3 % (11.5-14.5); Red Blood Cell (RBC) Count 2.66 mill/uL (4.70-6.10); White Blood Cell (WBC) Count 22.1 thou/uL (4.8-10.8)
[2021-10-04] MEDS: Morphine IR Tab 15 MG TAB PO PRN (04:00)
[2021-10-04 05:24] LABS: Anisocytosis MODERATE=16-30 cells (100X) (0-5/hpf); Band 14 % (5-11); Eosinophils 1 % (0-10); Hypochromia SLIGHT = 6-15 cells (100X) (0-5/hpf); Lymphocytes 8 % (21-51); MDiff Complete? YES; Monocytes 10 % (0-10); Neutrophil 67 % (42-75); Platelet Morphology Comment PLT clumps seen-ADEQ
[2021-10-04] MEDS ORDERED: Bisacodyl 10 MG SUPP PR SCH (07:30)
[2021-10-04] MEDS: Furosemide 20 MG TAB PO SCH ×3 (09:52→22:07)
[2021-10-04] MEDS: Ferrous Sulfate 325 MG TAB PO SCH (09:52)
[2021-10-04] MEDS: Potassium Chloride 20 MEQ TAB PO SCH (09:52)
[2021-10-04] MEDS: Divalproex Sodium DR 500 MG TAB PO SCH (09:53)
[2021-10-04] MEDS: Famotidine 20 MG TAB PO SCH (09:53)
[2021-10-04] MEDS: Polyethylene Glycol 3350 17 GM Packet PO SCH ×2 (10:31→21:55)
[2021-10-04] MEDS ORDERED: Lorazepam 1 MG TAB PO PRN (11:06)
[2021-10-04] MEDS ORDERED: Divalproex Sodium DR 500 MG TAB PO SCH (13:19)
[2021-10-04] MEDS: Lorazepam 1 MG TAB PO SCH ×3 (14:07→22:07)
[2021-10-04] MEDS: Mirtazapine 15 MG TAB PO SCH ×2 (21:55→22:07)
[2021-10-04] MEDS: risperiDONE 1 MG TAB PO SCH ×2 (21:55→22:07)
[2021-10-04] MEDS: hydrOXYzine 25 MG TAB PO SCH ×2 (21:55→22:07)
[2021-10-04] MEDS: Divalproex Sodium 250 MG (DR) TAB PO SCH (22:07)
[2021-10-05] MEDS: Lorazepam 1 MG TAB PO SCH ×3 (05:47→22:00)
[2021-10-05] MEDS: Morphine 2 MG/ML VIAL SLOW IVP PRN ×3 (07:45→19:17)
[2021-10-05] MEDS: Midazolam HCl 2 mg/2 ml Vial SLOW IVP PRN ×3 (07:50→19:17)
[2021-10-05] MEDS: Polyethylene Glycol 3350 17 GM Packet PO SCH ×2 (08:25→21:00)
[2021-10-05] MEDS: Furosemide 20 MG TAB PO SCH ×2 (08:25→21:00)
[2021-10-05] MEDS: Divalproex Sodium 250 MG (DR) TAB PO SCH ×2 (08:25→21:00)
[2021-10-05] MEDS: Potassium Chloride 20 MEQ TAB PO SCH (08:26)
[2021-10-05] MEDS ORDERED: fentaNYL 75 mcg/hour Patch TD SCH (12:00)
[2021-10-05] MEDS: Mirtazapine 15 MG TAB PO SCH (21:00)
[2021-10-05] MEDS: hydrOXYzine 25 MG TAB PO SCH (21:00)
[2021-10-05] MEDS: risperiDONE 1 MG TAB PO SCH (21:00)
[2021-10-06] MEDS: Lorazepam 1 MG TAB PO SCH (05:12)
[2021-10-06] MEDS: Potassium Chloride 20 MEQ TAB PO SCH (09:00)
[2021-10-06] MEDS: Polyethylene Glycol 3350 17 GM Packet PO SCH ×2 (09:00→21:00)
[2021-10-06] MEDS: Furosemide 20 MG TAB PO SCH (09:00)
[2021-10-06] MEDS: Divalproex Sodium 250 MG (DR) TAB PO SCH ×2 (09:00→20:51)
[2021-10-06] MEDS ORDERED: Lorazepam 2 MG/ML VIAL SLOW IVP PRN (09:35)
[2021-10-06] MEDS: Morphine 2 MG/ML VIAL SLOW IVP PRN ×2 (10:54→14:08)
[2021-10-06] MEDS: Midazolam HCl 2 mg/2 ml Vial SLOW IVP SCH ×2 (14:02→21:16)
[2021-10-06] MEDS: Mirtazapine 15 MG TAB PO SCH (20:51)
[2021-10-06] MEDS: RisperDAL M-TAB 1 MG TAB SL SCH (21:01)
[2021-10-07] MEDS: Midazolam HCl 2 mg/2 ml Vial SLOW IVP PRN ×4 (05:04→16:41)
[2021-10-07] MEDS: Midazolam HCl 2 mg/2 ml Vial SLOW IVP SCH ×3 (06:00→21:25)
[2021-10-07] MEDS: Polyethylene Glycol 3350 17 GM Packet PO SCH ×2 (07:41→20:46)
[2021-10-07] MEDS: Divalproex Sodium 250 MG (DR) TAB PO SCH ×2 (07:41→20:46)
[2021-10-07] MEDS: Morphine 2 MG/ML VIAL SLOW IVP PRN ×2 (13:01→20:29)
[2021-10-07] MEDS: RisperDAL M-TAB 1 MG TAB SL SCH (20:46)
[2021-10-07] MEDS: Mirtazapine 15 MG TAB PO SCH (20:46)
[2021-10-07 20:55] VITALS: TEMP 100.1
== END 2021-10-08 04:55 | disposition expired | DRG 189 ==
LOC: ERS 14:12 → CCU 10-02 06:29 → ERHOLD 10-02 06:29 → T4-A 10-02 10:41 → CCU 10-02 15:05 → OBSVTOIN 10-02 18:15 → IMCU/EMU 10-05 08:43
PROVIDERS: ADMIT Family Medicine; ATTEND Family Medicine
PROC: 30233N1 Transfusion of Nonautologous Red Blood Cells into Peripheral Vein, Percutaneous Approach (ICD-10-PCS; principal; 2021-10-01)
PROC: 5A09557 Assistance with Respiratory Ventilation, Greater than 96 Consecutive Hours, Continuous Positive Airway Pressure (ICD-10-PCS; 2021-10-02)
DX: J96.21 Acute and chronic respiratory failure with hypoxia (principal); C79.9 Secondary malignant neoplasm of unspecified site; D62 Acute posthemorrhagic anemia; R04.2 Hemoptysis; C34.01 Malignant neoplasm of right main bronchus; C34.02 Malignant neoplasm of left main bronchus; Z20.822 Contact with and (suspected) exposure to COVID-19; Z51.5 Encounter for palliative care; Z66 Do not resuscitate; E11.9 Type 2 diabetes mellitus without complications; E78.5 Hyperlipidemia, unspecified; I10 Essential (primary) hypertension; N40.0 Benign prostatic hyperplasia without lower urinary tract symptoms; D64.81 Anemia due to antineoplastic chemotherapy; T45.1X5A Adverse effect of antineoplastic and immunosuppressive drugs, initial encounter; F25.9 Schizoaffective disorder, unspecified; F41.9 Anxiety disorder, unspecified; F32.A Depression, unspecified; K59.00 Constipation, unspecified; I45.81 Long QT syndrome; F17.210 Nicotine dependence, cigarettes, uncomplicated; Z79.899 Other long term (current) drug therapy; Z89.612 Acquired absence of left leg above knee; Z99.81 Dependence on supplemental oxygen; Z91.14 Patient's other noncompliance with medication regimen; Z88.8 Allergy status to other drugs, medicaments and biological substances
CPT/HCPCS: 36415; 36416; 36430; 71045; 71275; 80053; 81003; 81015; 83880; 84484; 85025; 85610; 85730; 86850; 86900; 86901; 93005; 94640; 94660; 96374; G0378; J1885; J2250; J2270; J7620; P9016; Q9967; U0002